=== PATIENT | male | born 1990 | race Caucasian/White ===

== ENCOUNTER 2025-01-12 19:36 | Inpatient (IN) | payer MEDICAID, SELFPAY ==
[2025-01-12 19:36] VITALS: BP 125/75; PULSE 88; RESP 18; TEMP 36.6; O2SAT 99; BMI 19.1
--- NOTE | 2025-01-12 19:43 | EDS_ITS ---
HPI History of Present Illness Chief Complaint: Substance Abuse Detail of Chief Complaint: Requesting inpatient detox for IV fentanyl abuse. Informant: patient Onset/Context/Timing Onset: Weeks Context: Gradual Onset Timing: Continuous Current Severity: Mild Maximum Severity: Mild Narrative Narrative: 34-year-old male IV fentanyl abuse. Requesting detox. Denies alcohol abuse. Denies any significant past medical history. No recent illness. No recent hospitalization. No prior inpatient detox. Prior similar symptoms: Yes Recent Illness/Hospitalization: No PFSH PFSH Home Medications ?Medication ?Instructions ?Recorded ?Last Taken ?Type NK 01/12/25 Unknown History Allergy/AdvReac Type Severity Reaction Status Date / Time No Known Allergies Allergy Verified 01/12/25 19:38 Social History (Updated 01/12/25 @ 19:53 by Danika Whipple) housing: house Smoking Status: Never smoker ROS ROS ED ROS Narrative Denies recent illness Constitutional Constitutional ED: Denies chills or fever(s) Eyes Eyes: Denies blurry vision ENT ENT ED: Denies ear pain Cardiovascular Cardiovascular: Denies chest pain Respiratory/Chest Respiratory/Chest: Denies cough or dyspnea Gastrointestinal Gastrointestinal: Denies abdominal pain, diarrhea, melena, nausea or vomiting Genitourinary Genitourinary ED: Denies dysuria Musculoskeletal Musculoskeletal: Denies arthralgias or back pain Integumentary Denies abscess Neurologic Neurologic: Denies headache(s) Psychiatric Psychiatric: Denies anxiety Endocrine Endocrinology: Denies cold intolerance Hematologic/Lymphatic Hematologic/Lymphatic: Denies easy bleeding, easy bruising or lymphadenopathy Allergic/Immunologic Allergic/Immunologic ED: Denies mouth swelling, tongue swelling or urticaria EXAM Physical Exam Narrative Exam Narrative: Well-appearing 34-year-old male. Vital signs stable afebrile does not look septic toxic no acute distress. Pulse ox 9 9% on room air no hypoxia. H EENT exam pupils round reactive light. No icterus. Moist mucous membranes. Neck nontender no lymphadenopathy. Back nontender. Lungs clear to auscultation bilaterally. Heart regular rate and rhythm rate about 85 no murmur. Chest wall ribs nontender. Abdomen soft nontender. Moving all 4 extremities. Track camacho right forearm. No acute infection. No cellulitis or abscess. 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 Normal dorsi plantarflexion. Neurologically he is awake alert. Answering questions following commands. Const Vital Signs: 01/12/25 19:36 Temperature 98 F Temperature Source Oral Pulse Rate 88 Respiratory Rate 18 Blood Pressure 125/75 H Blood Pressure Mean 91 Pulse Ox 99 Oxygen Delivery Method Room Air MDM MDM MDM Narrative Medical decision making narrative: 34-year-old male requesting detox for IV fentanyl abuse. Screening labs to be obtained I will speak to the hospitalist about admission. History & Record Review Discussion w/independent historian: Patient Additional record(s) reviewed:: No prior records Lab Data Attestation: I reviewed the patient's lab results. Lab results narrative: CBC unremarkable. White count 8. H&H is 16 and 47. Platelets 191. Chemistries show sodium 138 gap 12. Urine creatinine are normal at 17 and 0.7. Glucose 101. Liver enzymes unremarkable other than ALT of 59. Alcohol is negative. Labs: Laboratory Results - last 24 hr 01/12/25 19:49 WBC 8.6 RBC 5.56 Hgb 16.6 H Hct 47.8 MCV 86.0 MCH 29.9 MCHC 34.7 RDW Std Deviation 38.5 RDW Coeff of Sonja 12.3 Plt Count 191 MPV 8.3 Immature Gran % (Auto) 0.800 Neut % (Auto) 63.7 Lymph % (Auto) 24.3 [place] % (Auto) 9.7 Eos % (Auto) 1.2 Baso % (Auto) 0.3 Absolute Neuts (auto) 5.5 Absolute Lymphs (auto) 2.10 Nucleated RBC % 0 Sodium 138 Potassium 3.8 Chloride 101 Carbon Dioxide 25.4 Anion Gap 12 BUN 17 Creatinine 0.75 Estim Creat Clear Calc 127.89 Est GFR (MDRD) Non-Af 121 BUN/Creatinine Ratio 22.9 H Glucose 101 H Calcium 9.4 Total Bilirubin 0.49 AST 30 ALT 59 H Alkaline Phosphatase 119 Total Protein 7.3 Albumin 4.2 Globulin 3.1 Albumin/Globulin Ratio 1.3 Ethyl Alcohol < 10.1 Discharge Plan Dx/Rx/DC Orders Clinical Impression: Fentanyl use disorder, mild, abuse, Admitted to substance misuse detoxification center Disposition Disposition: Acute Care Hospital [facility]
[2025-01-12 19:56] LABS: Hematocrit 47.8 % (40-54); Hemoglobin 16.6 g/dL (13.0-16.5); Immature Granulocytes Count 0.070 X10^3/uL (0.0-0.0); Mean Corp Hgb Conc 34.7 g/dL (32-36); Mean Corpuscular Volume 86.0 fL (80-94); Mean Platelet Vol. 8.3 fl (6.2-12.0); NRBC Flagged by Analyzer 0 % (0-5); Platelet Count 191 K/mm3 (150-450); RBC Distribution Width CV 12.3 % (11.6-14.6); RBC Distribution Width SD 38.5 fl (35.1-43.9); Red Blood Count 5.56 M/mm3 (4.6-6.2); White Blood Count 8.6 K/mm3 (4.4-11.0)
--- OUTSIDE RECORDS SUMMARY | 2025-01-12 20:05 | XMS RPT_ITS | CCD ---
Author Organization [facility] Inform ion Partnership [facility] Care Team Providers Care Manager Med Surg Name Role Phone Micah Morocho Unavailable Unavailable Micah Morocho Unavailable Unavailable MIGUEL A WHITEHEAD Unavailable Unavailable ETMIGUEL A BARRETT Unavailable Unavailable AUSTYN WHITE Attending Unavailab le EtMiguel A barrett Primary Care Provider TORY FARRIS Attending Unavailab le MIGUEL A WHITEHEAD Primary Care Unavailable Miguel A Whitehead Primary Care Provider EtMiguel A barrett Primary Care Provider Etzel PEDIATRIC PHYSICIANMiguel A Primary Care Provider Etzel BEAMING MACHINE OPERATOR-PEDIATRIC PHYSICIANMiguel A Primary Care Provider [phone] MIGUEL A WHITEHEAD [facility] Care Unavailable ETMIGUEL A BARRETT [facility] Care Unavailable ETMIGUEL A BARRETT Primary Care Unavailable JOSE DE JESUS PAUL I Referring Unavailable LINDA BONDS Attending Unavailable ETMIGUEL A BARRETT Primary Care Unavailable HASSMANN IIBRIAN Attending Un available ETMIGUEL A BARRETT Primary Care Unavailable HASSMANN IIBRIAN Referring Un available HASSMANN IIBRIAN Admitting Un available ETMIGUEL A BARRETT Primary Care Unavailable NATO BECERRA Attending Unavailable ETMIGUEL A BARRETT Primary Care Unavailable LUIS ESPINO Attending Unavailable MELODY CHOU Attending Unavailable CHANEL ROGERS Admitting Unavailable PRANAV SCHWARTZ Unavailable MIGUEL A WHITEHEAD Primary Care Unavailable ETMIGUEL A BARRETT Primary Care Unavailable SANA BHAGAT Attending Unavailable SHELBY DUQUE Attending Unavailable ETZELMIGUEL A Primary Care Unavailable MARC CONNELLY Attending Unavail able ETMIGUEL A BARRETT Primary Care Unavailable ETZEL, MIGUEL A YOU Primary Care Unavailable JEANETTE BLUNT Attending Unavailable Medications Current Medications Medication Drug Class(es) Dates Sig (Normalized) Sig (Original) acyclovir 400 mg oral tablet (1 source) Herpesvirus Nucleoside Analog DNA Polymerase Inhibitor, Herpes Simplex Virus Nucleoside Analog DNA Polymerase Inhibitor, Herpes Zoster Virus Nucleoside Analog DNA Polymerase Inhibitor Start: 05-05-2020 take 1 tablet by mouth five times daily acyclovir (ZOVIRAX) 400 MG tablet Take 1 (one) tablet (400 mg total) by mouth 5 (five) times a day . 25 tablet 0 05/05/2020 Active [id number] 200 actuat albuterol 0.09 mg/actuat metered dose inhaler (5 sources) beta2-Adrenergic Agonist Start: 02-24-2023 take 2 puff(s) by inhalation every six hours as needed for cough albuterol 90 mcg/actuation inhaler Inhale 2 (two) puffs every 6 (six) hours as needed for cough or wheezing . 18 g 02/24/2023 Active amoxicillin 875 mg / clavulanate 125 mg oral tablet (1 source) Penicillin-class Antibacterial Start: 05-24-2019 End: 06-03-2019 take 1 tablet by mouth twice daily amoxicillin-clavu lanate (AUGMENTIN) 875-125 MG per tablet Take 1 tablet by mouth 2 times daily for 10 days 20 tablet 0 05/24/2019 06/03/2019 Active doxycycline hyclate 100 mg oral tablet (2 sources) Tetracycline-class Drug Start: 04-28-2020 take 1 tablet by mouth twice daily doxycycline hyclate (VIBRA-TABS) 100 MG tablet Take 1 (one) tablet (100 mg total) by mouth 2 (two) times a day . 14 tablet 0 04/28/2020 Active Start: 10-25-2017 take 1 tablet by musa th twice daily doxycycline hyclate (VIBRA-TABS) 100 MG tablet Take 1 (one) tablet (100 mg total) by mouth 2 (two) times a day. 14 tablet 0 10/25/2017 Active etodolac 400 mg oral tablet (1 source) Nonsteroidal Anti-inflammatory Drug Start: 05-24-2019 take 1 tablet by mouth twice daily for headache etodolac (LODINE) 400 MG tablet Take 1 tablet by mouth 2 times daily For headache 30 tablet 0 05/24/2019 Active FLUoxetine 20 mg oral capsule (2 sources) Serotonin Reuptake Inhibitor Start: 05-15-2019 End: 05-24-2019 take 1 capsule by mouth once daily FLUoxetine (PROZAC) 20 MG capsule Take 1 (one) capsule (20 mg total) by mouth daily . 30 capsule 2 05/15/2019 Active meloxicam 15 mg oral tablet (2 sources) Nonsteroidal Anti-inflammatory Drug Start: 02-19-2022 End: 02-26-2022 take 1 tablet by mouth once daily as needed for pain meloxicam (MOBIC) 15 MG tablet Take 1 (one) tablet (15 mg total) by mouth daily as needed for pain . 7 tablet 0 02/19/2022 02/26/2022 Active mupirocin 0.02 mg/mg topical ointment (1 source) RNA Synthetase Inhibitor Antibacterial Start: 04-28-2020 mupirocin (BACTROBAN) 2 % ointment Apply topically 3 (three) times a day . 22 g 0 04/28/2020 Active sulfamethoxazole 800 mg / trimethoprim 160 mg oral tablet (5 sources) Dihydrofolate Reductase Inhibitor Antibacterial, Sulfonamide Antimicrobial Start: 01-30-2024 End: 02-06-2024 take 1 tablet by mouth twice daily sulfamethoxazo le-trimethopri m (BACTRIM DS,SEPTRA DS) 800-160 mg per tablet Take 1 (one) tablet by mouth 2 (two) times a day for 7 days . 14 tablet 01/30/2024 02/06/2024 Active End: 03-13-2024 sulfamethoxazole-trimethopri m (BACTRIM,SEPTRA) 200-40 mg/5 mL suspension Take by mouth 2 (two) times a day . 03/13/2024 Discontinued (Stop Taking at Discharge) End: 05-24-2019 take 1 tablet by mouth once sulfamethoxazole-trimethoprim (BACTRIM DS;SEPTRA DS) 800-160 MG per tablet Take 1 tablet by mouth once 0 05/24/2019 Discontinued Completed/Discontinued Medications Medication Drug Class(es) Dates Sig (Normalized) Sig (Original) acetaminophen 325 mg oral tablet (4 sources) Start: 03-11-2024 End: 03-13-2024 take 1 tablet by mouth every six hours as needed for headache 650 mg, Oral, Every 6 hours PRN, headaches, Starting on 03/11/24 at 2231 Start: 03-11-2024 End: 03-11-2024 take 975 mg by mouth once 975 mg, Oral, Once, On Sun at 1845, For 1 dose Start: 07-09-2023 End: 07-09-2023 take 1 dose by mouth once 1,000 mg, Oral, ONCE, 1 dose , On 07/09/23 at 2115 Start: 02-19-2022 End: 02-19-2022 acetaminophen (TYLENOL) tabl et 650 mg acetaminophen 325 mg / oxyCODONE hydrochloride 5 mg oral tablet (1 source) Opioid Agonist Start: 02-19-2022 End: 02-19-2022 take 1 tablet by mouth every six hours as needed oxyCODONE-acetaminophen (PERCOCET) 5-325 mg per tablet 1 tablet bacitracin 0.5 unt/mg topical ointment (1 source) Start: 07-09-2023 End: 07-09-2023 1 Application, Topical, ONCE, 1 dose, On 07/09/23 at 2115, Apply to finger bisacodyl 10 mg rectal suppository (1 source) Stimulant Laxative Start: 02-19-2022 End: 02-19-2022 bisacodyL (DULCOLAX) suppository 10 mg cephalexin 500 mg oral capsule (6 sources) Cephalosporin Antibacterial Start: 07-09-2023 End: 07-10-2023 take 500 mg by mouth every six hours 500 mg, Oral, EVERY 6 HOURS, First dose on 07/09/23 at 2045, Until Discontinued Start: 07-05-2023 End: 07-05-2023 take 1 dose by mouth once 500 mg, Oral, ONCE, 1 dose, On 07/05/23 at 2245 Start: 07-05-2023 End: 07-15-2023 take 1 capsule by mouth twice daily cephALEXin 500 MG capsule Take 1 capsule by mouth 2 times daily for 10 days. 20 capsule 07/05/2023 07/15/2023 Active Start: 05-11-2020 End: 05-18-2020 take 1 capsule by mouth three times daily cephALEXin (KEFLEX) 500 MG capsule Take 1 (one) capsule (500 mg total) by mouth 3 (three) times a day for 7 days . 21 capsule 0 05/11/2020 05/18/2020 Active dextromethorphan hydrobromide 2 mg/ml / guaiFENesin 40 mg/ml oral suspension (4 sources) Uncompetitive F-hgpfvc-R-aspartate Receptor Antagonist, Sigma-1 Agonist Start: 11-22-2023 End: 03-13-2024 dextromethorphan-guaiFENesin 10-200 mg/5 mL Liqd . . 200 mL 11/22/2023 03/13/2024 Discontinued (Stop Taking at Discharge) 1 ml diphenhydrAMINE hydrochloride 50 mg/ml cartridge (1 source) Histamine-1 Receptor Antagonist Start: 05-24-2019 End: 05-24-2019 diphenhydrAMINE (BENADRYL) injection 25 mg 0.4 ml enoxaparin sodium 100 mg/ml prefilled syringe (1 source) Low Molecular Weight Heparin Start: 03-12-2024 End: 03-13-2024 inject 40 mg by subcuta neous injecti on once daily 40 mg, Subcutaneous, Daily, First dose on 03/12/24 at 0800, Administer in abdomen unless otherwise directed by prescriber. Notify physician if patient refuses., Indication: VTE Prophylaxis 12 hr guaiFENesin 600 mg extended release oral tablet (1 source) Start: 03-12-2024 End: 03-12-2024 take 600 mg by mouth once 600 mg, Oral, Once, On 03/12/24 at 0940, For 1 dose, DO NOT CRUSH OR CHEW. ibuprofen 400 mg oral tablet (9 sources) Nonsteroidal Anti-inflammatory Drug Start: 03-11-2024 End: 03-13-2024 take 1 tablet by mouth every six hours as needed for headach e 400 mg, Oral, Every 6 hours PRN, headaches, Starting on 03/11/24 at 2231, Give with Food Do Not Crush or Chew if administering orally due to bitter taste. May be crushed if given via tube. Start: 07-09-2023 End: 07-09-2023 take 1 dose by mouth once at mealtime 600 mg, Oral, ONCE, 1 dose, On 07/09/23 at 2115, Give with food Start: 02-24-2022 End: 03-13-2024 take 1 tablet by mouth every six hours as needed for pain ibuprofen (ADVIL,MOTRIN) 800 MG tablet Take 1 (one) tablet (800 mg total) by mouth every 6 (six) hours as needed for pain (penile fracture) . 15 tablet 02/24/2022 03/13/2024 Discontinued (Stop Taking at Discharge) Start: 11-04-2016 take 1 tablet by musa th every six hours as needed ibuprofen 600 MG Tab take 1 tablet by mouth every 6 hours as needed. 20 tablet 11/04/2016 Active iopamidoL (ISOVUE-370) 370 mg iodine /mL (76 %) injection 75 mL (1 source) Start: 03-11-2024 End: 03-11-2024 75 mL, Intravenous, Once in imaging, contrast, Starting on 03/11/24 at 1638, For 1 dose 1 ml ketorolac tromethamine 15 mg/ml cartridge (1 source) Nonsteroidal Anti-inflammatory Drug, Cyclooxygenase Inhibitor Start: 05-24-2019 End: 05-24-2019 ketorolac (TORADOL) injection 15 mg Lidocaine (5 sources) Antiarrhythmic, Amide Local Anesthetic Start: 02-01-2024 End: 02-01-2024 lidocaine 20 mg/mL (2 %) injection 6 mL Start: 02-01-2024 End: 02-01-2024 6 mL, Infiltration, Once, On Tue02/01/24 at 1500, For 1 dose Start: 02-01-2024 End: 02-02-2024 lidocaine 20 mg/mL (2 %) inj ection 6 mL magnesium hydroxide 80 mg/ml oral suspension (1 source) Start: 02-19-2022 End: 02-19-2022 magnesium hydroxide (MOM) 400 mg/5 mL suspension 2,400 mg melatonin 5 mg oral tablet (1 source) Start: 03-11-2024 End: 03-13-2024 take 5 mg by mouth once daily as needed for sleep 5 mg, Oral, Nightly PRN, Sleep, Starting on 03/11/24 at 2223 methylPREDNISolone 125 mg injection (1 source) Corticosteroid Start: 05-24-2019 End: 05-24-2019 methylPREDNISolone sodium (SOLU-MEDROL) injection 125 mg naloxone (NARCAN) injection 0.1 mg (1 source) Start: 02-19-2022 End: 02-19-2022 naloxone (NARCAN) injection 0.1 mg 24 hr nicotine 0.875 mg/hr transdermal system (1 source) Cholinergic Nicotinic Agonist Start: 02-19-2022 End: 02-19-2022 nicotine (NICODERM CQ) 21 mg/24 hr 1 patch 2 ml ondansetron 2 mg/ml injection (8 sources) Serotonin-3 Receptor Antagonist Start: 03-11-2024 End: 03-13-2024 take 4 mg intravenously every six hours as needed for nausea and vomiting 4 mg, Intravenous, Every 6 hours PRN, nausea, vomiting, Starting on 03/11/24 at 2223 Start: 02-19-2022 End: 02-19-2022 take 4 mg intravenously every six hours as needed for nausea and vomiting ondansetron (ZOFRAN) injection 4 mg Start: 06-09-2021 End: 03-13-2024 take 1 tablet by mouth every eight hours as needed ondansetron (Zofran) 4 MG tablet Take 1 (one) tablet (4 mg total) by mouth every 8 (eight) hours as needed . 20 tablet 06/09/2021 03/13/2024 Discontinued (Stop Taking at Discharge) penicillin v potassium 500 mg oral tablet (1 source) Start: 11-04-2016 End: 07-05-2023 take 2 tablets by mouth twice daily penicillin v potassium 500 MG Tab take 2 tablets by mouth 2 times daily. 40 tablet 11/04/2016 07/05/2023 Discontinued 2 ml prochlorperazine 5 mg/ml injection (1 source) Phenothiazine Start: 05-24-2019 End: 05-24-2019 prochlorperazine (COMPAZINE) injection 10 mg sennosides, halfway 8.6 mg oral tablet (1 source) Start: 02-19-2022 End: 02-19-2022 senna (SENOKOT) tablet 8.6 mg Sodium Chloride (3 sources) Start: 03-11-2024 End: 03-13-2024 sodium chloride (PF) (NS) flush 5 mL Start: 02-19-2022 End: 02-19-2022 sodium chloride (PF) (NS) fl ush 5 mL Start: 05-24-2019 End: 05-24-2019 0.9 % NaCl bolus Problems Active Problems Problem Classification Problem Date Documented Date Episodic/Chronic Anxiety disorders (2 sources) Posttraumatic stress disorder; Translations: [Post-traumatic stress disorder, unspecified] Onset: 03-11-2024 03-11-2024 Chronic E Codes: Natural/environment (5 sources) Dog bite - wound; Translations: [Bitten by dog, initial encounter] Onset: 02-01-2024 02-01-2024 Episodic External cause codes: Cut/neal (1 source) Contact with knife, initial encounter; Translations: [Contact with knife, initial encounter] Onset: 04-20-2018 Headache; including migraine (7 sources) Paroxysmal hemicrania; Translations: [Episodic paroxysmal hemicrania, not intractable] Onset: 05-24-2019 05-24-2019 Chronic Mood disorders (6 sources) Depressive disorder; Translations: [Depression, unspecified depression type] Onset: 03-11-2024 03-11-2024 Chronic Mood disorders (2 sources) Mood disorders; Translations: [Depression, unspecified] Onset: 03-11-2024 Nonspecific chest pain (4 sources) Chest pain, unspecified; Translations: [Other chest pain] Onset: 02-11-2024 Episodic Open wounds of extremities (15 sources) Laceration without foreign body of right hand, initial encounter; Translations: [Laceration of index finger] Onset: 04-20-2018 07-05-2023 Episodic Open wounds of extremities (3 sources) Laceration of left index finger; Translations: [Laceration without foreign body of left index finger without damage to nail, subsequent encounter] Onset: 07-09-2023 07-09-2023 Episodic Other connective tissue disease (2 sources) Pain in right foot; Translations: [Pain in right foot] Onset: 02-01-2024 Episodic Other injuries and conditions due to external causes (1 source) Follow-up status; Translations: [Other injury of unspecified body region, subsequent encounter] 07-09-2023 Episodic Other injuries and conditions due to external causes (2 sources) Other injury of unspecified body region, subsequent encounter; Translations: [Other injury of unspecified body region, subsequent encounter] Onset: 07-09-2023 Episodic Other injuries and conditions due to external causes (1 source) Laceration of digital nerve in finger; Translations: [Injury of digital nerve of unspecified finger, initial encounter] 07-13-2023 Episodic Other nervous system disorders (2 sources) Other chronic pain; Translations: [Other chronic pain] Onset: 06-10-2024 Chronic Personality disorders (2 sources) Cluster B personality disorder ; Translations: [Other specific personality disorders] Onset: 03-11-2024 03-11-2024 Chronic Sprains and strains (2 sources) Unspecified sprain of right wrist, initial encounter; Translations: [Unspecified sprain of right wrist, initial encounter] Onset: 12-04-2024 Episodic Substance-related disorders (4 sources) Polysubstance abuse ; Translations: [Other psychoactive substance abuse, uncomplicated] Onset: 03-11-2024 03-13-2024 Chronic Substance-related disorders (2 sources) Stimulant abuse; Translations: [Other stimulant use, unspecified, uncomplicated] Onset: 03-11-2024 03-11-2024 Episodic Viral infection (2 sources) Disease caused by 2019-nCoV; Translations: [COVID-19] Onset: 03-11-2024 03-11-2024 Episodic Past or Other Problems Problem Classification Problem Date Documented Da te Episodic/Chronic Chronic obstructive pulmonary disease and bronchiectasis (7 sources) Bronchitis; Translations: [Bronchitis, not specified as acute or chronic] Onset: 05-24-2019 05-24-2019 Episodic Crushing injury or internal injury (6 sources) Injury of urethra; Translations: [Other injury of urethra, initial encounter] Onset: 02-19-2022 Episodic Other injuries and conditions due to external causes (7 sources) Rupture of corpus cavernosum of penis; Translations: [Fracture of corpus cavernosum penis, initial encounter] Onset: 02-19-2022 Episodic Other non-traumatic joint disorders (2 sources) Pain in right shoulder; Translations: [Pain in right shoulder] Onset: 06-10-2024 Episodic Pneumonia (except that caused by tuberculosis or sexually transmitted disease) (2 sources) Pneumonia, unspecified organism; Translations: [Pneumonia, unspecified organism] Onset: 11-21-2023 Episodic Skin and subcutaneous tissue infections (9 sources) Paronychia of toe of right foot; Translations: [Cellulitis of right toe] Onset: 11-21-2023 02-01-2024 Episodic Suicide and intentional self-inflicted injury (3 sources) Suicidal thoughts; Translations: [Suicidal ideations] Onset: 03-11-2024 03-11-2024 Episodic Superficial injury; contusion (8 sources) Subungual hematoma of foot; Translations: [Contusion of right lesser toe(s) with damage to nail, initial encounter] Onset: 02-01-2024 02-01-2024 Episodic Results Test Name Value Interpretation Reference Range Facility ED Prov Noteon 12-04-2024 ED Prov Note ED PROVIDER NOTE [facility] NAME: Mikayla Sotelo AGE: 34 y.o. : 1990 VISIT DATE: 12/04/2024 CSN: [id number] PCP: Miguel A Whitehead, SANDRA Chief Complaint Patient presents with Wrist Pain 34-year-old male presents complaining of pain in his right wrist and hand after punching a wall 2 days ago. He describes injuring that hand when he was 25 but he never actually got x-rays for it. Denies any elbow or shoulder injury. Pain is worse with movement about the wrist Wrist Pain Past Medical History: Diagnosis Date Hepatitis C Herpes genitalis in men History reviewed. No pertinent surgical history. Family History Problem Relation Age of Onset Diabetes Father Diabetes Maternal Aunt Diabetes Maternal Grandmother Diabetes Paternal Grandmother Social History [1] Previous Medications Medication Sig albuterol 90 mcg/actuation inhaler Inhale 2 (two) puffs every 6 (six) hours as needed for cough or wheezing . (Patient not taking: Reported on 06/10/2024 .) Allergies[2] Review of Systems All other review of systems not mentioned in the HPI are negative. Patient Vitals for the past 24 hrs: BP Temp Temp src Pulse Resp SpO2 Weight 12/04/24 2209 -- -- -- -- -- 100 % -- 12/04/24 2207 (!) 137/53 97.9 degrees F (36.6 degrees C) Oral 96 18 100 % 63.5 kg (140 lb) Physical Exam CONSTITUTIONAL: Well-developed, well-nourished. Speaking full sentences in no apparent distress. EYES: No conjunctival injection. No icterus. EARS: External ears appear normal. NOSE: The nose is normal in appearance. There is no rhinorrhea. NECK: The trachea is mid-line. CARDIOVASCULAR: The heart has a regular rate and rhythm. No cyanosis RESPIRATORY: There is normal chest excursion with respiration. No stridor. GASTROINTESTINAL: Abdomen nondistended. MUSCULOSKELETAL: There are no deformities noted in all four extremities. INTEGUMENTARY: The exposed skin appears normal for age and race. It is warm and dry. No petechiae or purpuric lesions are noted. PSYCHOLOGICAL: The patient's mood and manner are appropriate. Grooming and personal hygiene are appropriate. NEURO: No focal weakness with equal strength bilaterally. Right wrist: Most tenderness on the dorsal aspect near the ulnar styloid and fifth metacarpal. No obvious swelling or bruising or deformity noted. Radial, ulnar, and median nerve function is intact distally in the hand. Some limited wrist and finger extension due to discomfort . Laboratory & Radiographic Imaging (if done): No results found for this visit on 12/04/24. XR Hand Right 3+ Views (Standard) Final Result Dorsal soft tissue swelling. No acute fracture. Workstation ID: [id number] XR Wrist Right 3+ Views (Standard) Final Result Dorsal soft tissue swelling. No acute fracture. Workstation ID: [id number] Procedures Medical Decision Making Isolated injury to the right wrist and hand. X-ray to further evaluate. I reviewed the x-ray images and see no evidence of fracture or dislocation. Will treat as wrist sprain. Velcro wrist splint provided. Range of motion and rehab exercises discussed. Follow-up with orthopedics for persistent symptoms Patient informed of incidental findings seen on imaging today. Ability to review test results in their chart electronically discussed. Follow-up with primary care for further evaluation of any incidental findings discussed. Clinical Impression: 1. Wrist sprain, right, initial encounter ED Disposition ED Disposition Discharge Condition Stable Comment Mikayla Sotelo discharged to home/self care in stable condition. Follow-up Information 1. Tory Monge MD. Specialty: Orthopedic Surgery Why: Follow-up in 1 to 2 weeks for reevaluation for persistent discomfort Zabrina Wan [facility] [phone] Contact information for after-discharge care Follow-up information has not been specified. [1] Social History Socioeconomic History Marital status: Single Tobacco Use Smoking status: Every Day Current packs/day: 0.50 Types: Cigarettes Smokeless tobacco: Never Vaping Use Vaping status: Never Used Substance and Sexual Activity Alcohol use: Not Currently Drug use: Yes Types: Marijuana, Methamphetamines Comment: occasionally [2] No Known Allergies Jeanette Blunt MD 12/04/242235 AUTHENTICATED BY JEANETTE BLUNT, ON 12/04/2024 22:36:25 [facility] XR HAND RIGHT 3+ VIEWS (ISAIAS DARD)on 12-04-2024 XR HAND RIGHT 3+ VIEWS (STANDARD) EXAMINATION: XR WRIST RIGHT 3+ VIEWS (STANDARD); XR HAND RIGHT 3+ VIEWS (STANDARD) HISTORY: M, 34 y/o , Punched a concrete wall 2 days ago. Pain in ulnar side of dorsal wrist COMPARISON: None TECHNIQUE: Three views of the right wrist, three views of the right hand are performed. FINDINGS: There is no acute fracture.The bony structures are intact.There is soft tissue swelling over the dorsal aspect of the metacarpal phalangeal joints. IMPRESSION: Dorsal soft tissue swelling. No acute fracture. Workstation ID: [id number] Dictated by: JAVIER RAI on TueDec 04, 2024 10:28:56 PM EDT Transcribed by: JAVIER RAI on TueDec 04, 2024 10:28:56 PM EDT Finalized by: JAVIER RAI on TueDec 04, 2024 10:28:56 PM EDT [facility] Comment on above: Order Comment: Injur y/Trauma or Illness?:Injury/Trauma How long have you had these symptoms (acute/chronic)?:Acute Reason for exam?:punched wall History of cancer?:Unknown Surgeries, chemotherapy, or radiation?:Unknown Type of Exam?:Initial Mechanism of injury?:pain XR WRIST RIGHT 3+ VIEWS (STA NDARD)on 12-04-2024 XR WRIST RIGHT 3+ VIEWS (STANDARD) EXAMINATION: XR WRIST RIGHT 3+ VIEWS (STANDARD); XR HAND RIGHT 3+ VIEWS (STANDARD) HISTORY: M, 34 y/o , Punched a concrete wall 2 days ago. Pain in ulnar side of dorsal wrist COMPARISON: None TECHNIQUE: Three views of the right wrist, three views of the right hand are performed. FINDINGS: There is no acute fracture.The bony structures are intact.There is soft tissue swelling over the dorsal aspect of the metacarpal phalangeal joints. IMPRESSION: Dorsal soft tissue swelling. No acute fracture. Workstation ID: [id number] Dictated by: JAVIER RAI on TueDec 04, 2024 10:28:56 PM EDT Transcribed by: JAVIER RAI on TueDec 04, 2024 10:28:56 PM EDT Finalized by: JAVIER RAI on TueDec 04, 2024 10:28:56 PM EDT [facility] Comment on above: Order Comment: Injur y/Trauma or Illness?:Injury/Trauma How long have you had these symptoms (acute/chronic)?:Acute Reason for exam?:punched wall History of cancer?:Unknown Surgeries, chemotherapy, or radiation?:Unknown Type of Exam?:Initial Mechanism of injury?:pain ED Procedureon 08-25-2024 ED Procedure EKG 12-lead Date/Time: 08/25/2024 11:07 AM Performed by: Sana Bhagat MD Authorized by: Sana Bhagat MD Interpreted by ED attending physician Comparison: compared with previous ECG from 02/11/2024 Similar to previous ECG Comparison to previous ECG: Q wave in V2 present in previous EKG, incomplete right bundle branch block appears to be in early stages Rhythm: sinus rhythm BPM: 94 Conduction: incomplete RBBB QRS axis: right Q waves: V2 Clinical impression: non-specific ECG AUTHENTICATED BY SANA BHAGAT, ON 08/25/2024 11:11:47 [facility] ED Prov Noteon 08-25-2024 ED Prov Note [facility] ED Attending Note: NAME: Mikayla Sotelo 34 y.o. CSN: [id number] PCP: Miguel A Whitehead CNP History: Chief Complaint: Chest Pain (Chest pain and nausea) and Nausea HPI: The history was obtained from the patient and EMS. Mikayla is a 34 y.o. male who presents with a chief complaint of Chest Pain (Chest pain and nausea) and Nausea. The patient is a 34-year-old male with a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 immature granulocyte count (IG) of 1% or more suggests the possibility of infection, an IG count of 3% is very likely related to an infection. Performed By: #### L [id number] #### LAB [address] [address] Harrison Evangelista M.D. [id number] Lymphocytes (Bld) [#/Vol] 1.45 10*3/uL Normal 0.90-4.00 [facility] Comment on above: Performed By: #### L [id number] #### LAB [address] [address] Harrison Evangelista M.D. [id number] Lymphocytes/100 WBC (Bld) 13.8 % Normal [facility] Comment on above: Performed By: #### L [id number] #### LAB [address] [address] Harrison Evangelista M.D. [id number] MCH (RBC) [Entitic mass] 29.8 pg Normal 26.0-34.0 [facility] Comment on above: Performed By: #### L [id number] #### MH LAB [address] [address] Harrison Evangelista M.D. [id number] MCV (RBC) [Entitic vol] 87.7 fL Normal 80.0-100.0 [facility] Comment on above: Performed By: #### L [id number] #### LAB [address] [address] Harrison Evangelista M.D. [id number] MEAN CORPUSCULAR HEMOGLOBIN CONC 34.0 g/dL Normal 31.0-37.0 [facility] Comment on above: Performed By: #### L [id number] #### LAB [address] [place] [address] Harrison Evangelista M.D. [id number] Monocytes (Bld) [#/Vol] 1.06 10*3/uL High 0.30-0.90 [facility] Comment on above: Performed By: #### L [id number] #### LAB [address] [address] Harrison Evangelista M.D. [id number] Monocytes/100 WBC (Bld) 10.1 % Normal [facility] Comment on above: Performed By: #### L [id number] #### LAB [address] [address] Harrison Evangelista M.D. [id number] NEUTROPHILS ABSOLUTE COUNT 7.92 K/mcL High 1.70-7.00 [facility] Comment on above: Performed By: #### L [id number] #### LAB [address] [address] Harrison Evangelista M.D. [id number] Neutrophils/100 WBC (Bld) 75.0 % [facility] Comment on above: Performed By: #### L [id number] #### LAB [address] [address] Harrison Evangelista M.D. [id number] Platelet mean volume (Bld) [Entitic vol] 8.8 fL Low 9.4-12.4 [facility] Comment on above: Performed By: #### L [id number] #### LAB [address] [address] Harrison Evangelista M.D. [id number] Platelets (Bld) [#/Vol] 217 10*3/uL Normal 150-400 [facility] Comment on above: Performed By: #### L [id number] #### LAB [address] [address] Harrison Evangelista M.D. [id number] RBC (Bld) [#/Vol] 6.10 10*6/uL High 4.50-5.90 [facility] Comment on above: Performed By: #### L [id number] #### LAB [address] [address] Harrison Evangelista M.D. [id number] WBC (Bld) [#/Vol] 10.54 10*3/uL Normal 4.50-11.00 [facility] Comment on above: Performed By: #### L [id number] #### LAB [address] [place], [place] [address] Harrison Evangelista M.D. [id number] CHEM 703-11-2024 Anion gap [Moles/Vol] 14 mmol/L Normal 10-20 [facility] Comment on above: Order Comment: [facility] has implemented the eGFR calculation approach that does not have a coefficient for race that conforms to the NKF-ASN Task Force Recommendations. Performed By: #### 4 6953 ####MH LAB [address] [place], [place] [address] Harrison Evangelista M.D. [id number] Chloride [Moles/Vol] 100 mmol/L Normal 98-108 [facility] Comment on above: Order Comment: [facility] has implemented the eGFR calculation approach that does not have a coefficient for race that conforms to the NKF-ASN Task Force Recommendations. Performed By: #### 4 6953 #### LAB [address] [place], [place] [address] Harrison Evangelista M.D. [id number] Creatinine [Mass/Vol] 1.03 mg/dL Normal 0.50-1.30 [facility] Comment on above: Order Comment: [facility] has implemented the eGFR calculation approach that does not have a coefficient for race that conforms to the NKF-ASN Task Force Recommendations. Performed By: #### 4 6953 ####MH LAB [address] [place], [place] [address] Harrison Evangelista M.D. [id number] EGFR 98 mL/min/1.73 m2 Normal >=60 [facility] Comment on above: Order Comment: [facility] has implemented the eGFR calculation approach that does not have a coefficient for race that conforms to the NKF-ASN Task Force Recommendations. Result Comment: Marisol mated GFR was calculated using the 2020 CKD-EPI creatinine equation. Performed By: #### 4 6953 ####MH LAB [address] [address] Harrison Evangelista M.D. [id number] Glucose [Mass/Vol] 94 mg/dL Normal 65-99 [facility] Comment on above: Order Comment: [facility] has implemented the eGFR calculation approach that does not have a coefficient for race that conforms to the NKF-ASN Task Force Recommendations. Performed By: #### 4 6953 ####MH LAB [address] [address] Harrison Evangelista M.D. [id number] HCO3 (Bld) [Moles/Vol] 29 mmol/L Normal 21-32 [facility] Comment on above: Order Comment: [facility] has implemented the eGFR calculation approach that does not have a coefficient for race that conforms to the NKF-ASN Task Force Recommendations. Performed By: #### 4 6953 #### LAB [address] [address] Harrison Evangelista M.D. [id number] Potassium [Moles/Vol] 3.9 mmol/L Normal 3.5-5.1 [facility] Comment on above: Order Comment: [facility] has implemented the eGFR calculation approach that does not have a coefficient for race that conforms to the NKF-ASN Task Force Recommendations. Performed By: #### 4 6953 ####MH LAB [address] [address] Harrison Evangelista M.D. [id number] Sodium [Moles/Vol] 139 mmol/L Normal 135-145 [facility] Comment on above: Order Comment: [facility] has implemented the eGFR calculation approach that does not have a coefficient for race that conforms to the NKF-ASN Task Force Recommendations. Performed By: #### 4 6953 ####MH LAB [address] [address] Harrison Evangelista M.D. [id number] Urea nitrogen [Mass/Vol] 13 mg/dL Normal 8-25 [facility] Comment on above: Order Comment: [facility] has implemented the eGFR calculation approach that does not have a coefficient for race that conforms to the NKF-ASN Task Force Recommendations. Performed By: #### 4 6953 #### LAB [address] [place], [place] [address] Harrison Evangelista M.D. [id number] Urea nitrogen/Creatinine [Mass ratio] 12.6 mg/mg Normal 10.0-20.0 [facility] Comment on above: Order Comment: [facility] has implemented the eGFR calculation approach that does not have a coefficient for race that conforms to the NKF-ASN Task Force Recommendations. Performed By: #### 4 6953 #### LAB [address] [place], [place] [address] Harrison Evangelista M.D. [id number] COVID-19/INFLUENZA A,B MOLEC ULARon 03-11-2024 SARS-CoV-2 (COVID-19) Ab IA Ql SARS-COV-2 (CE[place]IL[place]) Detected INFLUENZA A ([place]) Not Detected INFLUENZA B ([place]) Not Detected Abnormal Not Detected [facility] Comment on above: Performed By: #### L [id number] #### LAB [address] [place], [place] [address] Harrison Evangelista M.D. [id number] CT ANGIOGRAM HEAD NECKon CT ANGIOGRAM HEAD NECK EXAMINATION: CT ANGIOGRAM HEAD NECK HISTORY: Concern for hanging injury. COMPARISON: CT head, 02/05/2021. TECHNIQUE: CT HEAD: Routine unenhanced axial CT images were obtained through the brain. CTA BRAIN: Postcontrast axial CTA images were obtained through the brain. Reconstructed MIP images were obtained in the axial, sagittal and coronal planes. Additional 3D reconstructions were obtained on an independent workstation. CTA NECK: Postcontrast axial CTA images were obtained through the neck. Reconstructed MIP images were obtained in the sagittal and coronal planes. Additional 3D reconstructions were obtained on an independent [employer] workstation. Carotid stenosis is reported according to NASCET criteria. Dose reduction techniques were achieved by using automated exposure control and/or adjustment of mA and/or kV according to patient size and/or use of iterative reconstruction technique. CONTRAST: 75 mL Isovue-370. FINDINGS: CT HEAD: Paranasal sinuses clear. Mastoid air cells clear. Skull base intact. No skull lesion. Orbital contents, nasopharynx normal. Extracranial soft tissue structures are unremarkable. No hydrocephalus. No mass effect. No shift of midline. No acute hemorrhage. No mass. CTA BRAIN: Distal internal carotid arteries are normal. Anterior cerebral arteries are normal. Middle cerebral arteries are normal. Distal vertebral arteries are normal. Basilar artery normal. Cerebellar arteries are normal. Posterior cerebral arteries are normal. No aneurysm. No vascular malformation. CTA NECK: The common carotid arteries are normal. The carotid bifurcations are normal. The internal carotid arteries are normal. No carotid artery stenosis. Left vertebral artery is dominant. Right vertebral artery is hypoplastic. Both vertebral arteries are patent. No acute dissection. The cervical spine is normal in alignment. No acute cervical spine fracture. No soft tissue swelling in the neck. No laryngeal edema. No masses. No lymphadenopathy. IMPRESSION: 1. Normal noncontrast CT of the head. 2. Normal CT angiogram of the brain. 3. No acute carotid vertebral artery dissection. No significant carotid or vertebral artery stenosis. 4. No acute cervical spine fracture. [employer] Workstation ID: [id number] Dictated by: ESA MONTOYA on [place] Mar 11, 2024 5:09:27 PM EST Transcribed by: NATO ANTOINE on [place] Mar 11, 2024 5:43:10 PM EST Finalized by: ESA MONTOYA on [place] Mar 11, 2024 9:44:25 PM EST Normal [facility] Comment on above: Order Comment: Injur y/Trauma or Illness?:Injury/Trauma How long have you had these symptoms (acute/chronic)?:Acute Reason for exam?:concerned for hanging injury, pt found hanging by noose in garage Type of Exam?:Initial Mechanism of injury?:hanging injury CTA Head vessels and Neck ve ssels W contrast Frank 03-11-[address] of the head. 2. Normal CT angiogram of the brain. 3. No acute carotid vertebral artery dissection. No significant carotid or vertebral artery stenosis. 4. No acute cervical spine fracture. [employer]/ContaAzul Workstation ID: [id number] [facility] EXAMINATION: CT ANGIOGRAM HEAD NECK HISTORY: Concern for hanging injury. COMPARISON: CT head, 02/05/2021. TECHNIQUE: CT HEAD: Routine unenhanced axial CT images were obtained through the brain. CTA BRAIN: Postcontrast axial CTA images were obtained through the brain. Reconstructed MIP images were obtained in the axial, sagittal and coronal planes. Additional 3D reconstructions were obtained on an independent workstation. CTA NECK: Postcontrast axial CTA images were obtained through the neck. Reconstructed MIP images were obtained in the sagittal and coronal planes. Additional 3D reconstructions were obtained on an independent [employer] workstation. Carotid stenosis is reported according to NASCET criteria. Dose reduction techniques were achieved by using automated exposure control and/or adjustment of mA and/or kV according to patient size and/or use of iterative reconstruction technique. CONTRAST: 75 mL Isovue-370. FINDINGS: CT HEAD: Paranasal sinuses clear. Mastoid air cells clear. Skull base intact. No skull lesion. Orbital contents, nasopharynx normal. Extracranial soft tissue structures are unremarkable. No hydrocephalus. No mass effect. No shift of midline. No acute hemorrhage. No mass. CTA BRAIN: Distal internal carotid arteries are normal. Anterior cerebral arteries are normal. Middle cerebral arteries are normal. Distal vertebral arteries are normal. Basilar artery normal. Cerebellar arteries are normal. Posterior cerebral arteries are normal. No aneurysm. No vascular malformation. CTA NECK: The common carotid arteries are normal. The carotid bifurcations are normal. The internal carotid arteries are normal. No carotid artery stenosis. Left vertebral artery is dominant. Right vertebral artery is hypoplastic. Both vertebral arteries are patent. No acute dissection. The cervical spine is normal in alignment. No acute cervical spine fracture. No soft tissue swelling in the neck. No laryngeal edema. No masses. No lymphadenopathy. [facility] Esa Montoya MD - 03/11/2024 EXAMINATION: CT ANGIOGRAM HEAD NECK HISTORY: Concern for hanging injury. COMPARISON: CT head, 02/05/2021. TECHNIQUE: CT HEAD: Routine unenhanced axial CT images were obtained through the brain. CTA BRAIN: Postcontrast axial CTA images were obtained through the brain. Reconstructed MIP images were obtained in the axial, sagittal and coronal planes. Additional 3D reconstructions were obtained on an independent workstation. CTA NECK: Postcontrast axial CTA images were obtained through the neck. Reconstructed MIP images were obtained in the sagittal and coronal planes. Additional 3D reconstructions were obtained on an independent [employer] workstation. Carotid stenosis is reported according to NASCET criteria. Dose reduction techniques were achieved by using automated exposure control and/or adjustment of mA and/or kV according to patient size and/or use of iterative reconstruction technique. CONTRAST: 75 mL Isovue-370. FINDINGS: CT HEAD: Paranasal sinuses clear. Mastoid air cells clear. Skull base intact. No skull lesion. Orbital contents, nasopharynx normal. Extracranial soft tissue structures are unremarkable. No hydrocephalus. No mass effect. No shift of midline. No acute hemorrhage. No mass. CTA BRAIN: Distal internal carotid arteries are normal. Anterior cerebral arteries are normal. Middle cerebral arteries are normal. Distal vertebral arteries are normal. Basilar artery normal. Cerebellar arteries are normal. Posterior cerebral arteries are normal. No aneurysm. No vascular malformation. CTA NECK: The common carotid arteries are normal. The carotid bifurcations are normal. The internal carotid arteries are normal. No carotid artery stenosis. Left vertebral artery is dominant. Right vertebral artery is hypoplastic. Both vertebral arteries are patent. No acute dissection. The cervical spine is normal in alignment. No acute cervical spine fracture. No soft tissue swelling in the neck. No laryngeal edema. No masses. No lymphadenopathy. IMPRESSION: 1. Normal noncontrast CT of the head. 2. Normal CT angiogram of the brain. 3. No acute carotid vertebral artery dissection. No significant carotid or vertebral artery stenosis. 4. No acute cervical spine fracture. CATHYG/mkv Workstation ID: [id number] [facility] Radiology Study observation (narrative) [facility] CTA Head vessels and Neck ve ssels W contrast IVOrdered By: Esa Montoya on 03-11-2024 [facility] Work Phone: DRUGS OF ABUSE SCREEN, URINE on 03-11-2024 AMPHETAMINE SCREEN, URINE Positive Abnormal None Detected [facility] Comment on above: Order Comment: Scree n results should be used for treatment purposes only. Specimen will be kept for 2 weeks, if the sample is adequate. Confirmation testing can be initiated by calling the lab within 2 weeks. Result Comment: Urin e Amphetamine Cutoff: < 1000 ng/mL = None Detected Performed By: #### 4 6965 #### LAB [address] [place], [place] [address] Harrison Evangelista M.D. [id number] BARBITURATE SCREEN URINE Not detected Normal None Detected [facility] Comment on above: Order Comment: Scree n results should be used for treatment purposes only. Specimen will be kept for 2 weeks, if the sample is adequate. Confirmation testing can be initiated by calling the lab within 2 weeks. Result Comment: Urin e Barbiturates Cutoff: < 200 ng/mL = None Detected Performed By: #### 4 6965 #### MH LAB [address] [address] Harrison Evangelista M.D. [id number] BENZODIAZEPINE SCREEN, URINE Not detected Normal None Detected [facility] Comment on above: Order Comment: Scree n results should be used for treatment purposes only. Specimen will be kept for 2 weeks, if the sample is adequate. Confirmation testing can be initiated by calling the lab within 2 weeks. Result Comment: Urin e Benzodiazepine Cutoff: < 200 ng/mL = None Detected Performed By: #### 4 6965 #### LAB [address] [address] Harrison Evangelista M.D. [id number] BUPRENORPHINE, URINE Not detected Normal None Detected [facility] Comment on above: Order Comment: Scree n results should be used for treatment purposes only. Specimen will be kept for 2 weeks, if the sample is adequate. Confirmation testing can be initiated by calling the lab within 2 weeks. Result Comment: Urin e Buprenorphine Cutoff: < 5 ng/mL = None Detected Performed By: #### 4 6965 #### MH LAB [address] [address] Harrison Evangelista M.D. [id number] CANNABINOID SCREEN URINE Positive Abnormal None Detected [facility] Comment on above: Order Comment: Scree n results should be used for treatment purposes only. Specimen will be kept for 2 weeks, if the sample is adequate. Confirmation testing can be initiated by calling the lab within 2 weeks. Result Comment: Urin e Cannabinoids Cutoff: < 50 ng/mL = None Detected Performed By: #### 4 [id number] #### MH LAB [address] [address] Harrison Evangelista M.D. [id number] COCAINE, SCREEN URINE Not detected Normal None Detecte d [facility] Comment on above: Order Comment: Scree n results should be used for treatment purposes only. Specimen will be kept for 2 weeks, if the sample is adequate. Confirmation testing can be initiated by calling the lab within 2 weeks. Result Comment: Urin e Cocaine Cutoff: < 300 ng/mL = None Detected Performed By: #### 4 [id number] #### MH LAB [address] [address] Harrison Evangelista M.D. [id number] FENTANYL, URINE Not detected Normal None Detected [facility] Comment on above: Order Comment: Scree n results should be used for treatment purposes only. Specimen will be kept for 2 weeks, if the sample is adequate. Confirmation testing can be initiated by calling the lab within 2 weeks. Result Comment: Urin e Fentanyl Cutoff: < 1 ng/mL = None Detected Performed By: #### 4 [id number] #### LAB [address] [place] [address] Harrison Evangelista M.D. [id number] METHADONE SCREEN, URINE Not detected Normal None Detected [facility] Comment on above: Order Comment: Scree n results should be used for treatment purposes only. Specimen will be kept for 2 weeks, if the sample is adequate. Confirmation testing can be initiated by calling the lab within 2 weeks. Result Comment: Urin e Methadone Cutoff: < 300 ng/mL = None Detected Performed By: #### 4 [id number] #### MH LAB [address] [address] Harrison Evangelista M.D. [id number] OPIATE SCREEN URINE Not detected Normal None Detected [facility] Comment on above: Order Comment: Scree n results should be used for treatment purposes only. Specimen will be kept for 2 weeks, if the sample is adequate. Confirmation testing can be initiated by calling the lab within 2 weeks. Result Comment: Urin e Opiates Cutoff: < 300 ng/mL = None Detected Performed By: #### 4 [id number] #### MH LAB [address] [place] [address] Harrison Evangelista M.D. [id number] OXYCODONE SCREEN, URINE Not detected Normal None Detected [facility] Comment on above: Order Comment: Scree n results should be used for treatment purposes only. Specimen will be kept for 2 weeks, if the sample is adequate. Confirmation testing can be initiated by calling the lab within 2 weeks. Result Comment: Johanna celaya Oxycodone Cutoff: < 100 ng/mL = None Detected Performed By: #### 4 [id number] #### LAB [address] [place], [place] [address] Harrison Evangelista M.D. [id number] ED Prov Noteon 03-11-2024 ED Prov Note [facility] EMERGENCY [facility]PART[facility] NAYLA NOTE: NAME: Mikayla Sotelo CSN: [id number] 33 y.o. PCP: Miguel A Whitehead CNP History: Chief Complaint: Psychiatric Evaluation HPI: The history was obtained from the patient. Mikayla is a 33 y.o. male who presents with a chief complaint of Psychiatric Evaluation. Patient presents to the emergency department via pink slip from [facility] after he was found in his garage after possible hanging attempt. Patient had reported to believe that he was swinging prior to them arriving. Patient states that this first time that he has had suicidal thoughts or any type of attempt. He denies ever actually hanging from the electrical cord that was found in his garage. He states that around 2 AM this morning he used a headband to cause some cuts on the sides of his neck in an attempt to get his girlfriend's attention. 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 He states that he was very upset because his girlfriend was not responding to him so he made these claims of wanting to kill himself to her to try and get her attention. He again does admit to methamphetamine use and marijuana use but denies any other drug use. He denies any alcohol use. He denies any previous history of mental health counseling or conditions. He states that he has tried to go through drug counseling and was in rehab and clean for some time but went back to meth after he was kicked out of his house. He denies any medical complaints at this time. No fever/chills, headache, lightheadedness or dizziness, neck pain, paresthesias, radiculopathy, shortness of breath, chest pain, nausea, vomiting, diarrhea, abdominal pain or change urination/urinary symptoms. He reports he is been eating and drinking well. PMHx: Past Medical History: Diagnosis Date - Hepatitis C - Herpes genitalis in men PMSx: History reviewed. No pertinent surgical history. FAM. Hx: Family History Problem Relation Age of Onset - Diabetes Father - Diabetes Maternal Aunt - Diabetes Maternal Grandmother - Diabetes Paternal Grandmother SOC. Hx: Social History Socioeconomic History - Marital status: Tobacco Use - Smoking status: Every Day Current packs/day: 0.50 Types: Cigarettes - Smokeless tobacco: Never Vaping Use - Vaping status: Never Used Substance and Sexual Activity - Alcohol use: Not Currently - Drug use: Yes Types: Marijuana Comment: occasionally MEDs: Previous Medications Medication Sig - albuterol 90 mcg/actuation inhaler Inhale 2 (two) puffs every 6 (six) hours as needed for cough or wheezing . - dextromethorphan-guai FENesin 10-200 mg/5 mL Liqd . . (Patient not taking: Reported on 02/01/2024 .) - ibuprofen (ADVIL,MOTRIN) 800 MG tablet Take 1 (one) tablet (800 mg total) by mouth every 6 (six) hours as needed for pain (penile fracture) . (Patient not taking: Reported on 02/01/2024 .) - ondansetron (Zofran) 4 MG tablet Take 1 (one) tablet (4 mg total) by mouth every 8 (eight) hours as needed . (Patient not taking: Reported on 02/24/2023 .) - sulfamethoxazole-trim ethoprim (BACTRIM,SEPTRA) 200-40 mg/5 mL suspension Take by mouth 2 (two) times a day . ALL: No Known Allergies ROS: Review of Systems All other systems reviewed and are negative. Positives and pertinent negatives as per HPI. All other systems were reviewed and are negative. Physical Exam: Patient Vitals for the past 24 hrs: BP Temp Pulse Resp SpO2 03/11/24 1633 -- -- (!) 100 -- -- 03/11/24 1510 (!) 139/96 98 degrees F (36.7 degrees C) (!) 113 16 98 % Physical Exam Vitals and nursing note reviewed. Constitutional: General: He is awake. He is not in acute distress. Appearance: Normal appearance. He is not ill-appearing, toxic-appearing or diaphoretic. HENT: Head: Normocephalic and atraumatic. Nose: Nose normal. Mouth/Throat: Mouth: Mucous membranes are moist. Pharynx: Oropharynx is clear. Eyes: General: No scleral icterus. Conjunctiva/sclera: Conjunctivae normal. Neck: Trachea: Trachea and phonation normal. Cardiovascular: Rate and Rhythm: Normal rate and regular rhythm. Pulses: Radial pulses are 2+ on the right side and 2+ on the left side. Heart sounds: Normal heart sounds, S1 normal and S2 normal. No murmur heard. No friction rub. No gallop. Musculoskeletal: Cervical back: Full passive range of motion without pain, normal range of motion and neck supple. Erythema present. No edema, rigidity, torticollis or crepitus. No pain with movement, spinous process tenderness or muscular tenderness. Normal range of motion. Right lower leg: No swelling. No edema. Left lower leg: No swelling. No edema. Pulmonary: Effort: Pulmonary effort is normal. No respiratory distress. Breath sounds: Normal breath sounds. No decreased breath sounds, wheezing, rhonchi or rales. Abdominal: General: (more content not included)... Normal [facility] Ethanol [Mass/Vol]Ordered By : Chrystal Lopez on 03-11-2024 Interpretation and review of laboratory results Normal [facility] Influenza virus A and B RNA and SARS-CoV-2 (COVID-19) N gene panel MELISSA+probe (Resp)Ordered By: Nicole Oliveira on 03-11-2024 FLUAV RNA MELISSA+probe Ql (Unsp spec) Not detected Not Detected [facility] FLUBV RNA MELISSA+probe Ql (Unsp spec) Not detected Not Detected [facility] Interpretation and review of laboratory results Abnormal [facility] SARS-CoV-2 (COVID-19) RNA MELISSA+probe Ql (Resp) Detected Abnormal Not Detected [facility] No Panel Informationon 03-11 Extra Tube Hold for add-ons. [facility] Comment on above: Auto resulted. [facility] RAPID STREP SCREENon 025 S. pyogenes Ag IA Ql (Unsp spec) Not detected Normal Not Detected [facility] Comment on above: Order Comment: Test Method: Nucleic Acid Amplification Performed By: #### [id number] #### LAB [address] [place], [place] [address] Harrison Evangelista M.D. [id number] S. pyogenes Ag Ql (Throat)on 03-11-2024 Interpretation and review of laboratory results Normal [facility] Strep Group A Molecular Not detected Not Detected [facility] Test Method: Nucleic Acid Amplification [facility] SALICYLATE LEVELon 5 SALICYLATE < Normal 0.0-20.0 [facility] Comment on above: Order Comment: Thera peutic Range: 10-20 mg/dLPotentially Toxic: >30 mg/dL Performed By: #### 4 [id number] #### LAB [address] [place] [address] Harrison Evangelista M.D. [id number] Salicylate Levelon 5 Salicylates [Mass/Vol] mg/dL 0.0 - 20.0 mg/dL [facility] Salicylates [Mass/Vol]on Interpretation and review of laboratory results Normal [facility] Therapeutic Range: 10-20 mg/dL Potentially Toxic: >30 mg/dL [facility] TSHon 03-11-2024 TSH Qn 1.35 m[IU]/L Normal 0.27-4.20 [facility] Comment on above: Performed By: #### 4 [id number] #### LAB [address] [place] [address] Harrison Evangelista M.D. [id number] TSH DL <= 0.005 mIU/L Qnon 0 03-11-2024 Interpretation and review of laboratory results Normal [facility] TSH Qn 1.35 m[IU]/L [facility] Urine Drug Screenon 03-11-19 25 Amphetamines Ql (U) Positive Abnormal None Detected [facility] Comment on above: Urine Amphetamine Cu toff: < 1000 ng/mL = None Detected Barbiturates Screen Ql (U) Not detected None Detected [facility] Comment on above: Urine Barbiturates C utoff: < 200 ng/mL = None Detected Benzodiazepines Ql (U) Not detected None Detect ed [facility] Comment on above: Urine Benzodiazepine Cutoff: < 200 ng/mL = None Detected Buprenorphine Ql (U) Not detected None Detected [facility] Comment on above: Urine Buprenorphine Cutoff: < 5 ng/mL = None Detected Cannabinoids Screen Ql (U) Positive Abnormal None Detected [facility] Comment on above: Urine Cannabinoids C utoff: < 50 ng/mL = None Detected Cocaine Ql (U) Not detected None Detected [facility] Comment on above: Urine Cocaine Cutoff : < 300 ng/mL = None Detected fentaNYL+Norfentanyl Screen Ql (U) Not detected None Detected [facility] Comment on above: Urine Fentanyl Cutof f: < 1 ng/mL = None Detected Interpretation and review of laboratory results Abnormal [facility] Methadone Screen Ql (U) Not detected None Detected [facility] Comment on above: Urine Methadone Cuto ff: < 300 ng/mL = None Detected Opiates Screen Ql (U) Not detected None Detecte d [facility] Comment on above: Urine Opiates Cutoff : < 300 ng/mL = None Detected oxyCODONE Ql (U) Not detected None Detected [facility] Comment on above: Urine Oxycodone Cuto ff: < 100 ng/mL = None Detected Screen results shoul d be used for treatment purposes only. Specimen will be kept for 2 weeks, if the sample is adequate. Confirmation testing can be initiated by calling the lab within 2 weeks. [facility] CBC WITH AUTO DIFFERENTIALon 02-11-2024 BASOPHILS ABSOLUTE COUNT 0.00 K/mcL Normal 0.00-0.30 [facility] Comment on above: Performed By: #### L [id number] #### SH LAB [address] [place] [address] Harrison Evangelista M.D. [id number] Basophils/100 WBC (Bld) 0.0 % Normal [facility] Comment on above: Performed By: #### L [id number] #### SH LAB [address] [place] [address] Harrison Evangelista M.D. [id number] Eosinophils (Bld) [#/Vol] 0.00 10*3/uL Normal 0.00-0.50 [facility] Comment on above: Performed By: #### L [id number] #### SH LAB [address] [place] [address] Harrison Evangelista M.D. [id number] Eosinophils/100 WBC (Bld) 0.0 % [facility] Comment on above: Performed By: #### L [id number] #### SH LAB [address] [place], [place] [id number] Harriosn Evangelista M.D. [id number] Erythrocyte distribution width (RBC) [Ratio] 12.5 % Normal 11.6-14.8 [facility] Comment on above: Performed By: #### L [id number] #### SH LAB [address] [place] [address] Harrison Evangelista M.D. [id number] Hematocrit (Bld) [Volume fraction] 48.9 % Normal 41.0-53.0 [facility] Comment on above: Performed By: #### L [id number] #### SH LAB [address] [place] [address] Harrison Evangelista M.D. [id number] Hemoglobin (Bld) [Mass/Vol] 16.5 g/dL Normal 13.5-17.5 [facility] Comment on above: Performed By: #### L [id number] #### SH [place] [address] Harrison Evangelista M.D. [id number] IG ABSOLUTE 0.07 K/mcL Normal 0.00-0.30 [facility] Comment on above: Performed By: #### L [id number] #### SH [place] [address] Harrison Evangelista M.D. [id number] IG PERCENT 0.90 % Normal [facility] Comment on above: Result Comment: The IG parameter is the percentage of metamyelocytes, myelocytes and promyelocytes. An immature granulocyte count (IG) of 1% or more suggests the possibility of infection, an IG count of 3% is very likely related to an infection. Performed By: #### L [id number] #### SH LAB [address] [place] [address] Harrison Evangelista M.D. [id number] Lymphocytes (Bld) [#/Vol] 2.74 10*3/uL Normal 0.90-4.00 [facility] Comment on above: Performed By: #### L [id number] #### SH [place] [address] Harrison Evangelista M.D. [id number] Lymphocytes/100 WBC (Bld) 34.0 % Normal [facility] Comment on above: Performed By: #### L [id number] #### SH LAB [address] [place] [address] Harrison Evangelista M.D. [id number] MCH (RBC) [Entitic mass] 30.3 pg Normal 26.0-34.0 [facility] Comment on above: Performed By: #### L [id number] #### SH LAB [address] [place] [address] Harrison Evangelista M.D. [id number] MCV (RBC) [Entitic vol] 89.7 fL Normal 80.0-100.0 [facility] Comment on above: Performed By: #### L [id number] #### SH LAB [address] [place] [address] Harrison Evangelista M.D. [id number] MEAN CORPUSCULAR HEMOGLOBIN CONC 33.7 g/dL Normal 31.0-37.0 [facility] Comment on above: Performed By: #### L [id number] #### SH LAB [address] [place] [address] Harrison Evangelista M.D. [id number] Monocytes (Bld) [#/Vol] 0.96 10*3/uL High 0.30-0.90 [facility] Comment on above: Performed By: #### L [id number] #### SH LAB [address] [place] [address] Harrison Evangelista M.D. [id number] Monocytes/100 WBC (Bld) 11.9 % Normal [facility] Comment on above: Performed By: #### L [id number] #### SH LAB [address] [place] [address] Harrison Evangelista M.D. [id number] NEUTROPHILS ABSOLUTE COUNT 4.30 K/mcL Normal 1.70-7.00 [facility] Comment on above: Performed By: #### L [id number] #### SH LAB [address] [place] [address] Harrison Evangelista M.D. [id number] Neutrophils/100 WBC (Bld) 53.2 % Normal [facility] Comment on above: Performed By: #### L [id number] #### SH LAB [address] [place] [address] Harrison Evangelista M.D. [id number] Platelet mean volume (Bld) [Entitic vol] 8.5 fL Low 9.4-12.4 [facility] Comment on above: Performed By: #### L [id number] #### SH LAB [address] [place], [place] [address] Harrison Evangelista M.D. [id number] Platelets (Bld) [#/Vol] 207 10*3/uL Normal 150-400 [facility] Comment on above: Performed By: #### L [id number] #### SH LAB [address] [place] [address] Harrison Evangelista M.D. [id number] RBC (Bld) [#/Vol] 5.45 10*6/uL Normal 4.50-5.90 [facility] Comment on above: Performed By: #### L [id number] #### SH LAB [address] [place], [place] [address] Harrison Evangelista M.D. [id number] WBC (Bld) [#/Vol] 8.07 10*3/uL Normal 4.50-11.00 [facility] Comment on above: Performed By: #### L [id number] #### SH LAB [address] [place] [address] Harrison Evangelista M.D. [id number] COMPREHENSIVE METABOLIC PANE [facility] 02-11-2024 Albumin [Mass/Vol] 4.3 g/dL Normal 3.2-5.2 [facility] Comment on above: Order Comment: [facility] has implemented the eGFR calculation approach that does not have a coefficient for race that conforms to the NKF-ASN Task Force Recommendations. Performed By: #### 4 [id number] #### SH LAB [address] [place] [address] Harrison Evangelista M.D. [id number] ALP [Catalytic activity/Vol] 103 U/L Normal 40-140 [facility] Comment on above: Order Comment: [facility] has implemented the eGFR calculation approach that does not have a coefficient for race that conforms to the NKF-ASN Task Force Recommendations. Performed By: #### 4 [id number] #### SH [place] [address] Harrison Evangelista M.D. [id number] ALT [Catalytic activity/Vol] 37 U/L Normal 0-50 U/L [facility] Comment on above: Order Comment: [facility] has implemented the eGFR calculation approach that does not have a coefficient for race that conforms to the NKF-ASN Task Force Recommendations. Performed By: #### 4 [id number] #### SH [place] [address] Harrison Evangelista M.D. [id number] Anion gap [Moles/Vol] 12 mmol/L Normal 10-20 [facility] Comment on above: Order Comment: [facility] has implemented the eGFR calculation approach that does not have a coefficient for race that conforms to the NKF-ASN Task Force Recommendations. Performed By: #### 4 [id number] #### [place] [address] Harrison Evangelista M.D. [id number] AST [Catalytic activity/Vol] 28 U/L Normal 0-50 U/L [facility] Comment on above: Order Comment: [facility] has implemented the eGFR calculation approach that does not have a coefficient for race that conforms to the NKF-ASN Task Force Recommendations. Performed By: #### 4 [id number] #### SH [place] [address] Harrison Evangelista M.D. [id number] Bilirubin [Mass/Vol] 0.3 mg/dL Normal 0.0-1.3 [facility] Comment on above: Order Comment: [facility] has implemented the eGFR calculation approach that does not have a coefficient for race that conforms to the NKF-ASN Task Force Recommendations. Performed By: #### 4 [id number] #### SH [place] [address] Harrison Evangelista M.D. [id number] Calcium [Mass/Vol] 9.4 mg/dL Normal 8.4-10.2 [facility] Comment on above: Order Comment: [facility] has implemented the eGFR calculation approach that does not have a coefficient for race that conforms to the NKF-ASN Task Force Recommendations. Performed By: #### 4 [id number] #### SH LAB [address] [place] [address] Harrison Evangelista M.D. [id number] Chloride [Moles/Vol] 104 mmol/L Normal 98-108 [facility] Comment on above: Order Comment: [facility] has implemented the eGFR calculation approach that does not have a coefficient for race that conforms to the NKF-ASN Task Force Recommendations. Performed By: #### 4 [id number] #### SH [address] [address] Harrison Evangelista M.D. [id number] Creatinine [Mass/Vol] 1.05 mg/dL Normal 0.50-1.30 [facility] Comment on above: Order Comment: [facility] has implemented the eGFR calculation approach that does not have a coefficient for race that conforms to the NKF-ASN Task Force Recommendations. Performed By: #### 4 [id number] #### LAB [address] [place] [address] Harrison Evangelista M.D. [id number] EGFR 96 mL/min/1.73 m2 Normal >=60 [facility] Comment on above: Order Comment: [facility] has implemented the eGFR calculation approach that does not have a coefficient for race that conforms to the NKF-ASN Task Force Recommendations. Result Comment: Marisol mated GFR was calculated using the 2020 CKD-EPI creatinine equation. Performed By: #### 4 [id number] #### SH LAB [address] [place] [address] Harrison Evangelista M.D. [id number] Glucose [Mass/Vol] 82 mg/dL Normal 65-99 [facility] Comment on above: Order Comment: [facility] has implemented the eGFR calculation approach that does not have a coefficient for race that conforms to the NKF-ASN Task Force Recommendations. Performed By: #### 4 [id number] #### LAB [address] [place] [address] Harrison Evangelista M.D. [id number] HCO3 (Bld) [Moles/Vol] 28 mmol/L Normal 21-32 [facility] Comment on above: Order Comment: [facility] has implemented the eGFR calculation approach that does not have a coefficient for race that conforms to the NKF-ASN Task Force Recommendations. Performed By: #### 4 [id number] #### [place] [id number] Harrison Evangelista M.D. [id number] Potassium [Moles/Vol] 3.6 mmol/L Normal 3.5-5.1 [facility] Comment on above: Order Comment: [facility] has implemented the eGFR calculation approach that does not have a coefficient for race that conforms to the NKF-ASN Task Force Recommendations. Performed By: #### 4 [id number] #### [place] [address] Harrison Evangelista M.D. [id number] Protein [Mass/Vol] 7.0 g/dL Normal 6.0-8.0 [facility] Comment on above: Order Comment: [facility] has implemented the eGFR calculation approach that does not have a coefficient for race that conforms to the NKF-ASN Task Force Recommendations. Performed By: #### 4 [id number] #### [place] [id number] Harrison Evangelista M.D. [id number] Sodium [Moles/Vol] 140 mmol/L Normal 135-145 [facility] Comment on above: Order Comment: [facility] has implemented the eGFR calculation approach that does not have a coefficient for race that conforms to the NKF-ASN Task Force Recommendations. Performed By: #### 4 6126 #### SH [place] [address] Harrison Evangelista M.D. [id number] Urea nitrogen [Mass/Vol] 14 mg/dL Normal 8-25 [facility] Comment on above: Order Comment: [facility] has implemented the eGFR calculation approach that does not have a coefficient for race that conforms to the NKF-ASN Task Force Recommendations. Performed By: #### 4 6126 #### SH LAB [address] [place] [address] Harrison Evangelista M.D. [id number] Urea nitrogen/Creatinine [Mass ratio] 13.3 mg/mg Normal 10.0-20.0 [facility] Comment on above: Order Comment: [facility] has implemented the eGFR calculation approach that does not have a coefficient for race that conforms to the NKF-ASN Task Force Recommendations. Performed By: #### 4 [id number] #### SH LAB [address] [place] [address] Harrison Evangelista M.D. [id number] D-DIMER, QUANTITATIVEon 01-15 D-DIMER QUANTITATIVE < Normal 0.27-0.49 [facility] Comment on above: Order Comment: A D-d puja concentration of <0.5 micrograms per milliliter FEU is considered a low probability for pulmonary embolus (PE) and deep venous thrombosis (DVT). Results of this test should always be interpreted in conjunction with the patient's medical history,clinical presentation, and other findings. Clinical diagnosis should not be based on the results of the D-dimer alone. Performed By: #### 4 [id number] #### SH LAB [address] [place] [address] Harrison Evangelista M.D. [id number] ED Prov Noteon 02-11-2024 ED Prov Note ED PROVIDER NOTE [facility] EMERGENCY [facility] NAME: Mikayla Sotelo AGE: 33 y.o. : 1990 VISIT DATE: 02/11/2024 CSN: [id number] PCP: Miguel A Whitehead, SANDRA Chief Complaint Patient presents with Chest Pain Mr. Sotelo is a 33-year-old white male with a past medical history of genital herpes and hepatitis C. Patient presents with a complaint of chest pain. Patient states the pain started last night. Pain was located to the left chest. Occasionally would radiate down his left arm. The pain would last a second and go away on its own. The pain was 8 out of 10. He also felt as though his heart was fluttering. He states that he felt like there was air bubbles in his heart. Patient states over the last 2 weeks he has had cold symptoms and last night around 8:00 he took a promethazine. Patient denies fever, headache, sore throat, earache, runny nose, abdominal pain, nausea, vomiting, diarrhea. Past Medical History: Diagnosis Date Hepatitis C Herpes genitalis in men History reviewed. No pertinent surgical history. Family History Problem Relation Age of Onset Diabetes Father Diabetes Maternal Aunt Diabetes Maternal Grandmother Diabetes Paternal Grandmother Social History Socioeconomic History Marital status: Tobacco Use Smoking status: Every Day Current packs/day: 0.50 Types: Cigarettes Smokeless tobacco: Never Vaping Use Vaping status: Never Used Substance and Sexual Activity Alcohol use: Not Currently Drug use: Yes Types: Marijuana Comment: occasionally Previous Medications Medication Sig albuterol 90 mcg/actuation inhaler Inhale 2 (two) puffs every 6 (six) hours as needed for cough or wheezing . dextromethorphan-guai FENesin 10-200 mg/5 mL Liqd . . (Patient not taking: Reported on 02/01/2024 .) ibuprofen (ADVIL,MOTRIN) 800 MG tablet Take 1 (one) tablet (800 mg total) by mouth every 6 (six) hours as needed for pain (penile fracture) . (Patient not taking: Reported on 02/01/2024 .) ondansetron (Zofran) 4 MG tablet Take 1 (one) tablet (4 mg total) by mouth every 8 (eight) hours as needed . (Patient not taking: Reported on 02/24/2023 .) sulfamethoxazole-trim ethoprim (BACTRIM,SEPTRA) 200-40 mg/5 mL suspension Take by mouth 2 (two) times a day . No Known Allergies Review of Systems All other systems reviewed and are negative. Patient Vitals for the past 24 hrs: BP Temp Temp src Pulse Resp SpO2 Height Weight 02/11/24 1200 (!) 138/95 -- -- 88 13 99 % -- -- 02/11/24 1056 (!) 152/91 98.3 degrees F (36.8 degrees C) Oral (!) 105 16 98 % 6' 1 68 kg (150 lb) Physical Exam Vitals and nursing note reviewed. Constitutional: General: He is not in acute distress. Appearance: He is well-developed. He is not ill-appearing or toxic-appearing. Comments: Thin wm HENT: Head: Normocephalic and atraumatic. Eyes: Extraocular Movements: Extraocular movements intact. Pupils: Pupils are equal, round, and reactive to light. Cardiovascular: Rate and Rhythm: Normal rate and regular rhythm. Heart sounds: Normal heart sounds. No murmur heard. Musculoskeletal: General: Normal range of motion. Cervical back: Normal range of motion and neck supple. Right lower leg: No edema. Left lower leg: No edema. Pulmonary: Effort: Pulmonary effort is normal. No respiratory distress. Breath sounds: Normal breath sounds. No stridor. Chest: Chest wall: No tenderness or crepitus. Abdominal: General: Bowel sounds are normal. Palpations: Abdomen is soft. Skin: General: Skin is warm and dry. Capillary Refill: Capillary refill takes less than 2 seconds. Neurological: General: No focal deficit present. Mental Status: He is alert and oriented to person, place, and time. Psychiatric: Mood and Affect: Mood normal. Behavior: Behavior normal. Laboratory & Radiographic Imaging (if done): Results for orders placed or performed during the hospital encounter of 02/11/24 D-Dimer Result Value Ref Range D-Dimer <0.27 0.27 - 0.49 mcg/mL FEU CMP Result Value Ref Range Sodium 140 135 - 145 mmol/L Potassium 3.6 3.5 - 5.1 mmol/L Chloride 104 98 - 108 mmol/L Bicarbonate 28 21 - 32 mmol/L Anion Gap 12 10 - 20 mmol/L Glucose 82 65 - 99 mg/dL BUN 14 8 - 25 mg/dL Creatinine 1.05 0.50 - 1.30 mg/dL eGFR 96 >=60 mL/min/1.73 m2 BUN/Creatinine Ratio 13.3 10.0 - 20.0 Total Protein 7.0 6.0 - 8.0 g/dL Albumin 4.3 3.2 - 5.2 g/dL Calcium 9.4 8.4 - 10.2 mg/dL Alkaline Phosphatase 103 40 - 140 U/L AST 28 0-50 U/L U/L ALT 37 0-50 U/L U/L Total Bilirubin 0.3 0.0 - 1.3 mg/dL Lipase Result Value Ref Range Lipase 30 15 - 65 U/L PT/INR Result Value Ref Range Protime (PT) 13.2 11.8 - 14.3 seconds INR 1.0 0.8 - 1.1 Troponin x 2 (Now and Repeat in 3 hours) Result Value Ref Range Troponin T <6 <=22 ng/L Troponin T Interpretation Normal CBC Auto Differential Result Value Ref Range WBC 8.07 4.50 - 11.00 K/mcL (more content not included)... Normal [facility] LIPASEon 02-11-2024 Lipase [Catalytic activity/Vol] 30 U/L Normal 15-65 [facility] Comment on above: Performed By: #### 4 [id number] #### [address] [address] Harrison Evangelista M.D. [id number] PT/INRon 02-11-2024 INR Coag (PPP) [Relative time] 1.0 {INR} Normal 0.8-1.1 [facility] Comment on above: Order Comment: Ashley carmichael the induction phase of oral anticoagulation, the INR may not reflect the anticoagulation status of the patient. Therapeutic ranges for INR's are: Most clinical situations: INR 2.0-3.0 Mechanical Prosthetic Valve: INR 2.5-3.5 Critical: INR >5.0 Performed By: #### [id number] #### SH [address] [address] Harrison Evangelista M.D. [id number] PT Coag (PPP) [Time] 13.2 s Normal 11.8-14.3 [facility] Comment on above: Order Comment: Ashley carmichael the induction phase of oral anticoagulation, the INR may not reflect the anticoagulation status of the patient. Therapeutic ranges for INR's are: Most clinical situations: INR 2.0-3.0 Mechanical Prosthetic Valve: INR 2.5-3.5 Critical: INR >5.0 Performed By: #### [id number] #### SH [address] [address] Harrison Evangelista M.D. [id number] TROPONINon 02-11-2024 BASELINE TROPONIN T NG/L < Normal <=22 [facility] Comment on above: Performed By: #### 4 [id number] #### [facility] [address] [place], [place] [address] Harrison Evangelista M.D. [id number] TROPONIN T INTERPRETATION Normal Normal [facility] Comment on above: Performed By: #### 4 [id number] #### [facility] [address] [place], [place] [address] Harrison Evangelista M.D. [id number] XR CHEST PA/APon 02-11-2024 XR CHEST PA/AP EXAMINATION: XR CHEST PA/AP 02/11/2024 11:03 AM HISTORY: ORDERING SYSTEM PROVIDED HISTORY: Chest pain, TECHNOLOGIST PROVIDED HISTORY: Illness/Other Reason for Exam: CP Cancer History: Unknown Surgery, Radiation History: Unknown Encounter Type: Initial Additional Signs and Symptoms: None ORDERING SYSTEM PROVIDED DIAGNOSIS CODES: COMPARISON: 02/24/2023. FINDINGS: A single, portable, upright, frontal view of the chest was obtained. The cardiomediastinal silhouette is unremarkable. There is no pneumothorax, pulmonary vascular congestion, pleural effusion, or focal airspace consolidation. Bilateral nipple piercings are present. IMPRESSION: No acute cardiopulmonary disease. RPS/lab Workstation ID: [id number] Dictated by: MALCOM OLMEDO on Sat Feb 11, 2024 12:38:24 PM EST Transcribed by: TONO LAGUNA on Sat Feb 11, 2024 12:59:58 PM EST Finalized by: MALCOM OLMEDO on Sat Feb 11, 2024 1:23:58 PM EST Normal [facility] Comment on above: Order Comment: Injur y/Trauma or Illness?:Illness/Other How long have you had these symptoms (acute/chronic)?:Acute Reason for exam?:CP History of cancer?:Unknown Surgeries, chemotherapy, or radiation?:Unknown Type of Exam?:Initial Additional signs and symptoms?:None No Panel Informationon 01-31 ELLIE Monterroso DPM 02/01/2024 2:12 PM Destruction of lesion Timeout: Verbal Consent obtained?: Yes Written Consent obtained?: Yes Date:: 02/01/2024 Consent given by:: Patient Procedure: Procedure Performed for: Right great toenail total temporary nail avulsion Performed by: Physician Dr. ELLIE Monterroso DPM Fenestrated: No Bleeding: Minimal Hemostasis Achieved: N/A Secured: Yes Secured with: Bandage Dressing Applied: Yes Type of dressing applied: Adaptic Pain Control: 2% Lidocaine Procedural Pain:: 0 Post Procedural Pain:: 0 Additional Procedure details:: Attention was directed the right great toenail. After proper anesthesia was appreciated area was prepped and draped in normal aseptic fashion using Betadine. Rubber band tourniquet was applied. Huntly elevator was used to free the nail plate from the nailbed. Approximately 5 2 to 5 cc of blood was expressed. Attention was directed to the proximal nail fold where the nail was then avulsed appropriately. It is noted that there is a very small nailbed laceration but well opposed. Measures approximately 4 mm in length. No exposed bone noted. No purulence or malodor. Area was then thoroughly irrigated with copious amounts of sterile saline. Bacitracin and dry sterile dressing applied using Adaptic 4 x 4 Kilo and Coban. Response to Treatment:: Procedure was tolerated well [facility] XR FOOT RIGHT 3+ VIEWS (ISAIAS DARBelgica)on 02-01-2024 XR FOOT RIGHT 3+ VIEWS (STANDARD) 3 views of the right foot reviewed today AP MO and lateral. No acute fracture or dislocation of note. No evidence of cortical erosion or subcutaneous emphysema.. Dictated by: ELLIE MONTERROSO on Daina Feb 02, 2024 8:17:18 AM EST Transcribed by: ELLIE MONTERROSO on [facility] Feb 02, 2024 8:17:18 AM EST Finalized by: ELLIE MONTERROSO on [facility] Feb 02, 2024 8:17:18 AM EST Normal [facility] Comment on above: Order Comment: Injur y/Trauma or Illness?:Illness/Other How long have you had these symptoms (acute/chronic)?:Unknown Reason for exam?:Right great toe pain History of cancer?:Unknown Surgeries, chemotherapy, or radiation?:Unknown Type of Exam?:Initial Additional signs and symptoms?:Right great toe pain ED Prov Noteon 01-30-2024 ED Prov Note ED PROVIDER NOTE [facility] EMERGENCY DEPART[facility] NAME: Mikayla Sotelo AGE: 33 y.o. : 1990 VISIT DATE: 01/30/2024 CSN: [id number] PCP: Miguel A Whitehead, SANDRA Chief Complaint Patient presents with Toe Pain This is a 33-year-old male presents to the emergency department with right-sided great toe pain. Patient notes that he has history of chronic intermittently ingrown toenail. He notes that he usually cuts the toenail out. However it gets red and grown and becomes painful again. Patient notes that the area around the toenails become red and painful. The toenail is not ingrown like it normally is. No drainage. No trauma Past Medical History: Diagnosis Date Hepatitis C Herpes genitalis in men History reviewed. No pertinent surgical history. Family History Problem Relation Age of Onset Diabetes Father Diabetes Maternal Aunt Diabetes Maternal Grandmother Diabetes Paternal Grandmother Social History Socioeconomic History Marital status: Single Tobacco Use Smoking status: Every Day Current packs/day: 0.50 Types: Cigarettes Smokeless tobacco: Never Vaping Use Vaping status: Never Used Substance and Sexual Activity Alcohol use: Not Currently Drug use: Yes Types: Marijuana Comment: occasionally Previous Medications Medication Sig albuterol 90 mcg/actuation inhaler Inhale 2 (two) puffs every 6 (six) hours as needed for cough or wheezing . dextromethorphan-guai FENesin 10-200 mg/5 mL Liqd . . ibuprofen (ADVIL,MOTRIN) 800 MG tablet Take 1 (one) tablet (800 mg total) by mouth every 6 (six) hours as needed for pain (penile fracture) . ondansetron (Zofran) 4 MG tablet Take 1 (one) tablet (4 mg total) by mouth every 8 (eight) hours as needed . (Patient not taking: Reported on 02/24/2023 .) No Known Allergies Review of Systems All other systems reviewed and are negative. Patient Vitals for the past 24 hrs: BP Pulse Resp SpO2 Height Weight 01/30/24 0329 -- -- -- 99 % -- -- 01/30/24 0326 139/87 (!) 110 18 99 % 6' 1 68 kg (150 lb) Physical Exam Vitals and nursing note reviewed. Constitutional: Appearance: He is well-developed. He is not toxic-appearing. HENT: Head: Normocephalic and atraumatic. Eyes: Pupils: Pupils are equal, round, and reactive to light. Musculoskeletal: General: No deformity or signs of injury. Cervical back: Normal range of motion and neck supple. Comments: Right great toe with area of erythema and tenderness. No fluctuance Pulmonary: Effort: Pulmonary effort is normal. No respiratory distress. Skin: Findings: No erythema or rash. Neurological: Mental Status: He is alert and oriented to person, place, and time. Psychiatric: Mood and Affect: Mood normal. Behavior: Behavior normal. Laboratory & Radiographic Imaging (if done): No results found for this visit on 01/30/24. XR Foot Right 3+ Views (Standard) Final Result 1. Normal exam. No change from prior study. Workstation ID: [id number] Procedures Medical Decision Making Patient does have an infection to the right great toe. Will prescribe Bactrim and have him follow-up with podiatry given his chronic toenail problems. Nothing drainable at this time. The patient has been informed that they may have pre-hypertension or hypertension based on a blood pressure reading in the Emergency Department. I recommend that the patient call the primary care provider listed on their discharge instructions or a physician of their choice as soon as possible to arrange follow-up in the next 4 weeks for further evaluation of possible pre-hypertension or hypertension. . Clinical Impression: 1. Toe infection ED Disposition ED Disposition Discharge Condition Stable Comment Mikayla Sotelo discharged to home/self care in stable condition. Follow-up Information 1. Shahriar Holley DPM. Specialty: Podiatry [address] [place] [id number] Contact information for after-discharge care Follow-up information has not been specified. New Prescriptions sulfamethoxazole-trim ethoprim (BACTRIM DS,SEPTRA DS) 800-160 mg per tablet Take 1 (one) tablet by mouth 2 (two) times a day for 7 days . Shelby Duque MD 01/30/24 0507 AUTHENTICATED BY SHELBY DUQUE, ON 01/30/2024 05:07:55 [facility] XR FOOT RIGHT 3+ VIEWS (ISAIAS CASTLE)on 01-30-2024 XR FOOT RIGHT 3+ VIEWS (STANDARD) EXAMINATION: XR FOOT RIGHT 3+ VIEWS (STANDARD) 01/30/2024 3:31 am HISTORY: ORDERING SYSTEM PROVIDED HISTORY: dog bite r great toe -attn r great toe, TECHNOLOGIST PROVIDED HISTORY: Injury/Trauma Reason for exam: swollen 1st digit and foot, dog bite Cancer History: u Surgery, RadiationHistory: u Encounter Type: Initial Mechanism of injury: dog bite ORDERING SYSTEM PROVIDED DIAGNOSIS CODES: COMPARISON: 03/30/2014 FINDINGS: There is no fracture, dislocation, or other acute osseous abnormality. Joint spaces are preserved there are no abnormal soft tissue calcifications. There are no radiopaque foreign bodies. IMPRESSION: 1. Normal exam. No change from prior study. Workstation ID: [id number] Dictated by: ALY COTTON on TueJan 30, 2024 4:57:15 AM EST Transcribed by: ALY COTTON on TueJan 30, 2024 4:57:15 AM EST Finalized by: ALY COTTON on TueJan 30, 2024 4:57:15 AM EST Normal [facility] Comment on above: Order Comment: Injur y/Trauma or Illness?:Injury/Trauma How long have you had these symptoms (acute/chronic)?:Acute Reason for exam?:swollen 1st digit and foot, dog bite History of cancer?:u Surgeries, chemotherapy, or radiation?:u Type of Exam?:Initial Mechanism of injury?:dog bite ED Prov Noteon 11-21-2023 ED Prov Note [facility] EMERGENCY DEPARTMENT ATTENDING NOTE: NAME: Mikayla Sotelo CSN: [id number] 33 y.o. PCP: Miguel A Whitehead CNP History: Chief Complaint: Abscess (Large red, inflamed lump on left pelvic area x 1 week ) HPI: The history was obtained from the patient. Mikayla is a 33 y.o. male who presents with a chief complaint of abscess. The patient has a history of hepatitis C, MRSA pneumonia and states that for the past week he has had an abscess in the left lower abdomen. He has had these before but never this bad. He also complains of a productive cough with green sputum and intermittent shortness of breath. He denies fever nor any other complaints Social history smoker ED Course / Medical Decision Making: ED COURSE: 33-year-old male presents with abscess and cough. Differentials include bronchitis versus pneumonia. He is given doxycycline as he meets clinical diagnosis for pneumonia. Regarding the abscess, please refer to the procedure note. Will recheck blood pressure prior to discharge After reviewing the items above, I did look at previous medical documentation, such as recent hospitalizations, office visits, and/or recent consultations with PCP/specialist. SDOH: Another factor that I considered in Mikayla's care was his Social Determinants of Health (SDOH). During this ED encounter, he did NOT appear to have any significant issues identified. Laboratory & Radiological Imaging (if done): Labs Reviewed - No data to display No orders to display Clinical Impression: 1. Abscess 2. Community acquired pneumonia, unspecified laterality ROS: Review of Systems Skin: Positive for wound. Positives and pertinent negatives as per HPI. All other systems were reviewed and are negative. Physical Exam: Patient Vitals for the past 24 hrs: BP Temp Temp src Pulse Resp SpO2 Height Weight 11/21/23 0123 (!) 148/108 97.9 degrees F (36.6 degrees C) Oral (!) 114 18 100 % 6' 1 68 kg (150 lb) Physical Exam Vitals and nursing note reviewed. Constitutional: General: He is not in acute distress. Appearance: Normal appearance. He is not ill-appearing. HENT: Head: Normocephalic and atraumatic. Nose: Nose normal. No rhinorrhea. Mouth/Throat: Mouth: Mucous membranes are moist. Pharynx: Oropharynx is clear. Eyes: Extraocular Movements: Extraocular movements intact. Conjunctiva/sclera: Conjunctivae normal. Cardiovascular: Rate and Rhythm: Normal rate and regular rhythm. Heart sounds: Normal heart sounds. Pulmonary: Effort: Pulmonary effort is normal. Breath sounds: Normal breath sounds. Abdominal: Palpations: Abdomen is soft. Tenderness: There is no abdominal tenderness. Skin: General: Skin is warm and dry. Capillary Refill: Capillary refill takes less than 2 seconds. Neurological: Mental Status: He is alert. Psychiatric: Mood and Affect: Mood normal. Behavior: Behavior normal. Incision/Drainage Date/Time: 11/21/2023 1:59 AM Performed by: Luis Espino MD Authorized by: Luis Espino MD Verbal consent: obtained Time out: Immediately prior to procedure a time out was called to verify the correct patient, procedure, equipment, customer support coordinator and site/side marked as required. Type: abscess Body area: trunk Location details: abdomen Anesthesia: local infiltration Anesthesia: Local Anesthetic: lidocaine 1% without epinephrine Anesthetic total: 4 mL Scalpel size: 11 Incision type: single straight Incision depth: dermal Complexity: simple Drainage: purulent Drainage amount: moderate Wound treatment: drain placed Packing material: 1/4 in iodoform gauze Patient tolerance: patient tolerated the procedure well with no immediate complications I did personally review Mikayla's past medical history, surgical history, social history, as well as family history (when relevant). In this case, I also oversaw the his drug management by reviewing his medication list, allergy list, as well as the medications that I prescribed during the ED course and/or recommended as an out-patient (including possible OTC medications such as acetaminophen, NSAIDs , etc). 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 New Prescriptions doxycycline hyclate (VIBRA-TABS) 100 MG tablet Take 1 (one) tablet (10 (more content not included)... Normal [facility] XR FINGER 2ND RIGHT 2+ VIEWS on 07-10-2023 XR FINGER 2ND RIGHT 2+ VIEWS EXAM: XR FINGER 2ND RIGHT 2+ VIEWS HISTORY: laceration, pain, swelling COMPARISON: None. TECHNIQUE: 3 views of the right index/second finger. FINDINGS: There is soft tissue swelling of second finger centered around the MCP joint. No retained opaque foreign body or gas in the tissues. Normal osseous structures and joints. Adequate bone mineralization. No destructive changes. IMPRESSION: Soft tissue swelling, second finger. No opaque foreign body. Normal [facility] XR Finger second - right Vie wson 07-09-2023 IMPRESSION: Soft tissue swelling, second finger. No opaque foreign body. RADIOLOGY EXAM: XR FINGER 2ND RIGHT 2+ VIEWS HISTORY: laceration, pain, swelling COMPARISON: None. TECHNIQUE: 3 views of the right index/second finger. FINDINGS: There is soft tissue swelling of second finger centered around the MCP joint. No retained opaque foreign body or gas in the tissues. Normal osseous structures and joints. Adequate bone mineralization. No destructive changes. RADIOLOGY Sean Navarro, - 07/09/2023 EXAM: XR FINGER 2ND RIGHT 2+ VIEWS HISTORY: laceration, pain, swelling COMPARISON: None. TECHNIQUE: 3 views of the right index/second finger. FINDINGS: There is soft tissue swelling of second finger centered around the MCP joint. No retained opaque foreign body or gas in the tissues. Normal osseous structures and joints. Adequate bone mineralization. No destructive changes. IMPRESSION IMPRESSION: Soft tissue swelling, second finger. No opaque foreign body. [facility] Radiology Study observation (narrative) [employer] XR Finger second - right Vie wsOrdered By: Sean Navarro on 07-09-2023 [facility] Work Phone: Laceration Repair at the Bed sideOrdered By: Tory Dominique on 07-06-2023 Radiology Study observation (narrative) [facility] Work Phone: Laceration Repair at the Bed sideon 07-05-2023 MINOR Petersen 07/05/2023 11:49 PM Laceration Repair at the Bedside Performed by: MINOR Petersen Authorized by: MINOR Petersen [place] Protocol time out called Additional Notes Area prepped and draped in sterile fashion. Anesthetized with 5 mL 1% lidocaine by local infiltration. Six size 5.0 Ethilon sutures placed to the distal aspect of the laceration. The remaining laceration does not require any additional closure. Patient tolerated well. [facility] Laceration Repair at the Bed sideOrdered By: Tory Dominique on 07-05-2023 [facility] Work Phone: Basic metabolic 2000 panelon 02-19-2022 Anion gap [Moles/Vol] 11 mmol/L 10 - 2 0 mmol/L [facility] Calcium [Mass/Vol] 9.3 mg/dL 8.4 - 10. 2 mg/dL [facility] Chloride [Moles/Vol] 107 mmol/L 98 - 10 8 mmol/L [facility] Creatinine [Mass/Vol] 0.87 mg/dL 0.50 - 1.30 mg/dL [facility] GFR/1.73 sq M.predicted CKD-EPI (S/P/Bld) [Vol rate/Area] 118 - PINF [facility] Comment on above: Estimated GFR was ca lculated using the 2020 CKD-EPI creatinine equation. Glucose [Mass/Vol] 85 mg/dL 65 - 99 mg/dL [facility] HCO3 [Moles/Vol] 29 mmol/L 21 - 32 mmol/L [facility] Interpretation and review of laboratory results Normal [facility] Potassium [Moles/Vol] 3.9 mmol/L 3.5 - 5.1 mmol/L [facility] Sodium [Moles/Vol] 143 mmol/L 135 - 145 mmol/L [facility] Urea nitrogen [Mass/Vol] 11 mg/dL 8 - 25 mg/dL [facility] Urea nitrogen/Creatinine [Mass ratio] 12.6 mg/mg 10.0 - 20.0 [facility] Services has implemented the eGFR calculation approach that does not have a coefficient for race that conforms to the NKF-ASN Task Force Recommendations. [facility] CBC Auto Differentialon Basophils (Bld) [#/Vol] 0.03 10*3/uL [facility] Basophils/100 WBC (Bld) 0.6 % [facility] Eosinophils (Bld) [#/Vol] 0.11 10*3/uL [facility] Eosinophils/100 WBC (Bld) 2.1 % [facility] Erythrocyte distribution width (RBC) [Entitic vol] 12.9 % 11.6 - 14.8 % [facility] Hematocrit (Bld) [Volume fraction] 46.8 % 41.0 - 53.0 % [facility] Hemoglobin (Bld) [Mass/Vol] 15.7 g/dL 13.5 - 17.5 g/dL [facility] Immature granulocytes (Bld) [#/Vol] 0.02 10*3/uL [facility] Immature granulocytes/100 WBC (Bld) 0.40 % [facility] Comment on above: The IG parameter is the percentage of metamyelocytes, myelocytes and promyelocytes. An immature granulocyte count (IG) of 1% or more suggests the possibility of infection, an IG count of 3% is very likely related to an infection. Interpretation and review of laboratory results Abnormal [facility] Lymphocytes (Bld) [#/Vol] 2.22 10*3/uL [facility] Lymphocytes/100 WBC (Bld) 41.8 % [facility] MCH (RBC) [Entitic mass] 30.5 pg 26.0 - 34.0 pg [facility] MCHC (RBC) [Mass/Vol] 33.5 g/dL 31.0 - 37.0 g/dL [facility] MCV (RBC) [Entitic vol] 91.1 fL 80.0 - 100.0 fL [facility] Monocytes (Bld) [#/Vol] 0.55 10*3/uL [facility] Monocytes/100 WBC (Bld) 10.4 % [facility] Neutrophils (Bld) [#/Vol] 2.38 10*3/uL [facility] Neutrophils/100 WBC (Bld) 44.7 % [facility] Nucleated RBC (Bld) [#/Vol] 0.00 10*3/uL [facility] Nucleated RBC/100 WBC (Bld) [Ratio] 0.0 % [facility] Platelet mean volume (Bld) [Entitic vol] 8.6 fL Low 9.4 - 12.4 fL [facility] Platelets (Bld) [#/Vol] 156 10*3/uL [facility] RBC (Bld) [#/Vol] 5.14 10*6/uL [facility] eah WBC (Bld) [#/Vol] 5.31 10*3/uL [facility] eah [facility] Critical Careon 02-19-2022 Aden Ramírez MD 02/19/2022 2:01 PM Critical Care Performed by: Aden Ramírez MD Authorized by: Aden Ramírez MD Total critical care time: 35 minutes Critical care time was exclusive of separately billable procedures and treating other patients. Critical care was necessary to treat or prevent imminent or life-threatening deterioration of the following conditions: trauma. Critical care was time spent personally by me on the following activities: development of treatment plan with patient or surrogate, discussions with consultants, evaluation of patient's response to treatment, examination of patient, obtaining history from patient or surrogate, ordering and performing treatments and interventions, ordering and review of laboratory studies, ordering and review of radiographic studies, pulse oximetry, re-evaluation of patient's condition and review of old charts. [facility] UrinalysisOrdered By: Jenn Reyes on 02-19-2022 Bacteria Auto Ql (U) None Seen None Se en /hpf [facility] Bilirubin Ql (U) Negative Negative [facility] Clarity Refractometry automated (U) Clear Clear [facility] Color (U) Dark Yellow Abnormal Colorless, Yellow [facility] Epithelial cells.squamous Auto (Urine sed) [#/Area] [facility] Glucose Auto test strip (U) [Mass/Vol] Negative Negative mg/dL [facility] Hemoglobin Auto test strip Ql (U) Negative Negative [facility] Interpretation and review of laboratory results Abnormal [facility] Ketones (U) [Mass/Vol] Negative Negat shantal mg/dL [facility] Leukocyte esterase Auto test strip Ql (U) Negative Negative [facility] Mucus Auto (Urine sed) [#/Area] Rare None Seen, Rare /lpf [facility] Nitrite Auto test strip Ql (U) Negative Negative [facility] pH (U) 6.0 [pH] 5.0 - 7.0 [facility] Protein (U) [Mass/Vol] Negative Negat shantal mg/dL [facility] RBC Auto (Urine sed) [#/Area] 1 [facility] Specific gravity (U) [Rel density] 1.024 1.005 - 1.025 [facility] Urobilinogen (U) [Mass/Vol] mg/dL NINF - 2.0 mg/dL [facility] WBC Auto (Urine sed) [#/Area] 2 [facility] Microscopic examination is performed on all urinalysis samples and only positive findings are reported. The test for blood on the chemical analytic portion of urinalysis may also be positive due to hemoglobinuria and myoglobinuria and if red blood cells are present they are quantified by microscopic examination. [facility] LACERATION REPAIRon 05-12-19 Lg Siddiqi MD 05/11/2020 1:51 PM Wound extent: Lac Repair Date/Time: 05/11/2020 1:43 PM Performed by: Lg Siddiqi MD Authorized by: Lg Siddiqi MD Verbal consent: obtained Consent given by: patient Relevant documents: Relevent documents present and verified. Medical history, medications, allergies and physical assessment reviewed/completed Site: site marked by physician or proceduralist who is privileged and credentialed to perform procedure Patient identity confirmed: verbally with patient Time out: Immediately prior to procedure a time out was called to verify the correct patient, procedure, equipment, customer support coordinator and site/side marked as required. All team members agree to proceed: Yes Body area: upper extremity Location details: right index finger Laceration length: 2.5 cm Foreign bodies: no foreign bodies Tendon involvement: superficial Vascular damage: no Anesthesia: local infiltration Anesthesia: Local Anesthetic: lidocaine 1% without epinephrine Anesthetic total: 2 mL Patient sedated: no Repair type: simple Preparation: Patient was prepped and draped in the usual sterile fashion. Irrigation solution: saline Amount of cleaning: standard Hemostasis achieved with: direct pressure Wound exploration: wound explored through full range of motion and entire depth of wound probed and visualized no vascular damage Skin closure: 4-0 ethilon Number of sutures: 4 Technique: simple interrupted Approximation: close Approximation difficulty: simple Dressinx4 sterile gauze and splint Patient tolerance: patient tolerated the procedure well with no immediate complications Comments: Right thumb laceration: 2.5 cm, superficial, no foreign body noted. Repaired with 4-0 Ethilon, 2 simple sutures were placed. Postprocedure hemostasis achieved. Patient tolerated procedure well. Total estimated blood loss minimal. [facility] NOVEL CORONAVIRUS NASOPHARYN GEAL - [facility] SPECIMEN ONLYon 07-02-2019 SARS-COV-2 NOT DETECTED Normal NOT DETECTED [facility] Comment on above: Order Comment: Viral transport media (shredder tender peat with pink fluid) - Collection must be done while wearing N-95 mask, eye protection, gown and gloves. Please label ALL specimens as 2019-nCoV rule out and deliver by hand. This test was performed using real time PCR for the qualitative detection of SARS-CoV-2 nucleic acid. The test has been reviewed by the FDA and given emergency use authorization. This test was developed and its performance characteristics determined by [facility] at [facility]. This test is used for clinical purposes. It should not be regarded as investigational or for research. Result Comment: Nega tive results do not preclude SARS-CoV-2 infection and should not be used as the sole basis for treatment or other patient management decisions. Optimum specimen types and timing for peak viral levels during infections caused by SARS-CoV-2 has not been determined. The possibility of a false negative result should especially be considered if the patient's recent exposures or clinical presentation suggest that SARS-CoV-2 infection is probable, and diagnostic tests for other causes of illness (e.g., other respiratory illness) are negative. Collection of a new specimen and re-testing may be necessary if the patient is critically ill or clinically deteriorating. Performed By: #### L [id number] #### [facility] (DEFAULT) [address] [place] [address] Basic Metabolic Panelon 04- Anion gap [Moles/Vol] 12 mmol/L 9 - 17 mmol/L [place], [place] Bun/Cre Ratio 14 [place] Calcium [Mass/Vol] 9.2 mg/dL 8.6 - 10. 4 mg/dL [place] Chloride [Moles/Vol] 101 mmol/L 98 - 10 7 mmol/L [place] CO2 [Moles/Vol] 27 mmol/L 20 - 31 mmol/L [place] Creatinine [Mass/Vol] 0.83 mg/dL 0.7 - 1.2 mg/dL [place] GFR >60 >60 mL/min [place] GFR Non- >60 >60 mL/min [place] Glucose [Mass/Vol] 97 mg/dL 70 - 99 mg/dL [place], [place] Potassium [Moles/Vol] 4.1 mmol/L 3.7 - 5.3 mmol/L [place] Sodium [Moles/Vol] 140 mmol/L 135 - 144 mmol/L [place] Urea nitrogen [Mass/Vol] 12 mg/dL 6 - 20 mg/dL [place] Basic Metabolic Profon 05-23 (cont.) Normal [facility] Comment on above: Result Comment: Aver age GFR for 30-39 years old: 107 mL/min/1.73sq m Chronic Kidney Disease: <60 mL/min/1.73sq m Kidney failure: <15 mL/min/1.73sq m eGFR calculated using average adult body mass. Additional eGFR calculator available at: http://www.Tuicool.Multigig/multiple_crcl_2012.htm Performed By: #### C JEREMY, BMP #### [facility] [address] [place] [address] Orthopaedic Doctor: Malcom Langley MD Anion gap [Moles/Vol] 12 mmol/L Normal 9-17 [facility] Comment on above: Performed By: #### C JEREMY, BMP #### [facility] [address] [place] [address] Orthopaedic Doctor: Malcom Langley MD BUN/CRE Ratio 14 Normal 9-20 [facility] Comment on above: Performed By: #### C DP, BMP #### [facility] [address] [place], [place] [id number] Orthopaedic Doctor: Malcom Langley MD Calcium [Mass/Vol] 9.2 mg/dL Normal 8.6-10.4 [facility] Comment on above: Performed By: #### C DP, BMP #### [facility] [address] [place], [place] [id number] Orthopaedic Doctor: Malcom Langley MD Chloride [Moles/Vol] 101 mmol/L Normal 98-107 [facility] Comment on above: Performed By: #### C DP, BMP #### [facility] [address] [place], [place] [id number] Orthopaedic Doctor: Malcom Langley MD CO2 [Moles/Vol] 27 mmol/L Normal 20-31 [facility] Comment on above: Performed By: #### C DP, BMP #### [facility] [address] [place], [place] [id number] Orthopaedic Doctor: Malcom Langley MD Creatinine [Mass/Vol] 0.83 mg/dL Normal 0.70-1.20 [facility] Comment on above: Performed By: #### C DP, BMP #### [facility] [address] [place], [place] [id number] Orthopaedic Doctor: Malcom Langley MD GFR, Amer >60 Normal >60 [facility] Comment on above: Performed By: #### C DP, BMP #### [facility] [address] [place] [address] Orthopaedic Doctor: Malcom Langley MD GFR,non Amer >60 Normal >60 [facility] Comment on above: Performed By: #### C DP, BMP #### [facility] [address] [place], [place] [phone] Orthopaedic Doctor: Malcom Langley MD Glucose [Mass/Vol] 97 mg/dL Normal 70-99 [facility] Comment on above: Performed By: #### C DP, BMP #### [facility] [address] [place], [place] [id number] Orthopaedic Doctor: Malcom Langley MD Potassium [Moles/Vol] 4.1 mmol/L Normal 3.7-5.3 [facility] Comment on above: Performed By: #### C DP, BMP #### [facility] [address] [place] [address] Orthopaedic Doctor: Malcom Langley MD Sodium [Moles/Vol] 140 mmol/L Normal 135-144 [facility] Comment on above: Performed By: #### C DP, BMP #### [facility] [address] [place], [place] [phone] Orthopaedic Doctor: Malcom Langley MD Staging: Normal [facility] Comment on above: Result Comment: Stag e 1: Some kidney damage normal GFR Stage 2: Mild kidney damage GFR 60-89 Stage 3: Moderate kidney damage GFR 30-59 Stage 4: Severe kidney damage GFR 15-29 Stage 5: Severe kidney damage GFR <15 ESRD - chronic treatment by dialysis or transplant Performed By: #### C DP, BMP #### [facility] [address] [place] [address] [address], [place] [id number] Orthopaedic Doctor: Malcom Langley MD Urea nitrogen [Mass/Vol] 12 mg/dL Normal 6-20 [facility] Comment on above: Performed By: #### C DP, BMP #### [facility] [address] [place] [address] Orthopaedic Doctor: Malcom Langley MD CBC Auto Differentialon 04-0 Basophils (Bld) [#/Vol] 10*3/uL [facility], [place] Basophils/100 WBC (Bld) 0 % 0 - 2 % [facility] Differential Type NOT REPORTED [place] Eosinophils (Bld) [#/Vol] 10*3/uL [place] Eosinophils/100 WBC (Bld) 0 % Low 1 - 4 % [place] Erythrocyte distribution width (RBC) [Ratio] 12.4 % 11.8 - 14.4 % [place] Hematocrit (Bld) [Volume fraction] 48.3 % 40.7 - 50.3 % [place] Hemoglobin (Bld) [Mass/Vol] 16.3 g/dL 13 - 17 g/dL [place] Immature granulocytes (Bld) [#/Vol] 1 % High 0 [place] Immature granulocytes (Bld) [#/Vol] 0.05 10*3/uL [place] Interpretation and review of laboratory results Abnormal [place] Lymphocytes (Bld) [#/Vol] 1.70 10*3/uL [place] Lymphocytes/100 WBC (Bld) 28 % 24 - 43 % [place] MCH (RBC) [Entitic mass] 30.8 pg 25.2 - 33.5 pg [place] MCHC (RBC) [Mass/Vol] 33.7 g/dL 28.4 - 34.8 g/dL [place] MCV (RBC) [Entitic vol] 91.3 fL 82.6 - 102.9 fL [place] Monocytes (Bld) [#/Vol] 0.47 10*3/uL [place] Monocytes/100 WBC (Bld) 8 % 3 - 12 % [place] Platelet mean volume (Bld) [Entitic vol] 9.2 fL 8.1 - 13.5 fL [place] Platelets (Bld) [#/Vol] NOT REPORTED [place] Platelets (Bld) [#/Vol] 161 10*3/uL [place] RBC (Bld) [#/Vol] 5.29 10*6/uL 4.21 - 5.7 7 m/uL [place] RBC morphology finding Nom (Bld) NOT REPORTED [place] Segmented neutrophils/100 WBC (Bld) 63 % 36 - 65 % [place] Segs Absolute 3.85 [place] WBC (Bld) [#/Vol] 0.0 10*3/uL 0.0 per 10 0 WBC [place] WBC (Bld) [#/Vol] 6.1 10*3/uL [place] WBC Morphology NOT REPORTED [place] CBC with Diffon 05-24-2019 Abs. Basophil <0.03 Normal 0.00-0.20 [facility] Comment on above: Performed By: #### C DP, BMP #### [address] [place] [id number] Orthopaedic Doctor: Malcom Langley MD Abs.Imm.Granulocyte 0.05 k/uL Normal 0.00-0.30 [facility] Comment on above: Performed By: #### C DP, BMP #### [address] [place] [address] Orthopaedic Doctor: Malcom Langley MD Abs.Neutrophil (Seg) 3.85 k/uL Normal 1.50-8.10 [facility] Comment on above: Performed By: #### C DP, BMP #### [address] [place] [address] Orthopaedic Doctor: Malcom Langley MD Basophils/100 WBC (Bld) 0 % Normal 0-2 [facility] Comment on above: Performed By: #### C DP, BMP #### [address] [place] [address] Orthopaedic Doctor: Malcom Langley MD Eosinophils (Bld) [#/Vol] 10*3/uL Normal 0.00-0.44 [facility] Comment on above: Performed By: #### C DP, BMP #### [address] [place] [phone] Orthopaedic Doctor: Malcom Langley MD Eosinophils/100 WBC (Bld) 0 % Low 1-4 [facility] Comment on above: Performed By: #### C DP, BMP #### [facility] [address] [place], [facility]83 Orthopaedic Doctor: Malcom Langley MD Erythrocyte distribution width (RBC) [Ratio] 12.4 % Normal 11.8-14.4 [facility] Comment on above: Performed By: #### C DP, BMP #### [facility] [address] [place], [place] [address] Orthopaedic Doctor: Malcom Langley MD Hematocrit (Bld) [Volume fraction] 48.3 % Normal 40.7-50.3 [facility] Comment on above: Performed By: #### C DP, BMP #### [address] [place], [facility]83 Orthopaedic Doctor: Malcom Langley MD Hemoglobin (Bld) [Mass/Vol] 16.3 g/dL Normal 13.0-17.0 [facility] Comment on above: Performed By: #### C DP, BMP #### [facility] [address] [place], [place] [address] Orthopaedic Doctor: Malcom Langley MD Immature granulocytes (Bld) [#/Vol] 1 % High 0 [facility] Comment on above: Performed By: #### C DP, BMP #### [facility] [address] [place], [facility]83 Orthopaedic Doctor: Malcom Langley MD Lymphocytes (Bld) [#/Vol] 1.70 10*3/uL Normal 1.10-3.70 [facility] Comment on above: Performed By: #### C DP, BMP #### [facility] [address] [place], [facility]83 Orthopaedic Doctor: Malcom Langley MD Lymphocytes/100 WBC (Bld) 28 % Normal 24-43 [facility] Comment on above: Performed By: #### C DP, BMP #### [facility] [address] [place], [facility]83 Orthopaedic Doctor: Malcom Langley MD MCH (RBC) [Entitic mass] 30.8 pg Normal 25.2-33.5 [facility] Comment on above: Performed By: #### C DP, BMP #### [facility] [address] [place] [address] Orthopaedic Doctor: Malcom Langley MD MCHC (RBC) [Mass/Vol] 33.7 g/dL Normal 28.4-34.8 [facility] Comment on above: Performed By: #### C DP, BMP #### [address] [place] [address] Orthopaedic Doctor: Malcom Langley MD MCV (RBC) [Entitic vol] 91.3 fL Normal 82.6-102.9 [facility] Comment on above: Performed By: #### C DP, BMP #### [address] [place] [id number] Orthopaedic Doctor: Malcom Langley MD Monocytes (Bld) [#/Vol] 0.47 10*3/uL Normal 0.10-1.20 [facility] Comment on above: Performed By: #### C DP, BMP #### [address] [place] [address] Orthopaedic Doctor: Malcom Langley MD Monocytes/100 WBC (Bld) 8 % Normal 3-12 [facility] Comment on above: Performed By: #### C DP, BMP #### [facility] [address] [place] [phone] Orthopaedic Doctor: Malcom Langley MD Neutrophil (Seg) 63 % Normal 36-65 [facility] Comment on above: Performed By: #### C DP, BMP #### [facility] [address] [place] [address] Orthopaedic Doctor: Malcom Langley MD NRBC Automated 0.0 per 100 WBC Normal 0.0 [facility] Comment on above: Performed By: #### C DP, BMP #### [facility] [address] [place], [place] [phone] Orthopaedic Doctor: Malcom Langley MD Platelet mean volume (Bld) [Entitic vol] 9.2 fL Normal 8.1-13.5 [facility] Comment on above: Performed By: #### C DP, BMP #### [facility] [address] [place] [address] Orthopaedic Doctor: Malcom Langley MD Platelets (Bld) [#/Vol] 161 10*3/uL Normal 138-453 [facility] Comment on above: Performed By: #### C DP, BMP #### [facility] [address] [place] [address] Orthopaedic Doctor: Malcom Langley MD RBC (Bld) [#/Vol] 5.29 10*6/uL Normal 4.21-5.77 [facility] Comment on above: Performed By: #### C DP, BMP #### [facility] [address] [place] [address] Orthopaedic Doctor: Malcom Langley MD WBC (Bld) [#/Vol] 6.1 10*3/uL Normal 3.5-11.3 [facility] Comment on above: Performed By: #### C DP, BMP #### [facility] [address] [place] [address] Orthopaedic Doctor: Malcom Langley MD Auto Diff Performed NOT REPORTED Normal [facility] Comment on above: Performed By: #### C DP, BMP #### [facility] [address] [place] [address] Orthopaedic Doctor: Malcom Langley MD Platelets (Bld) [#/Vol] NOT REPORTED Normal [facility] Comment on above: Performed By: #### C DP, BMP #### [facility] [address] [place] [address] Orthopaedic Doctor: Malcom Langley MD RBC morphology finding Nom (Bld) NOT REPORTED Normal [facility] Comment on above: Performed By: #### C DP, BMP #### [facility] [address] [place] [address] Orthopaedic Doctor: Malcom Langley MD WBC Morphology NOT REPORTED Normal [facility] Comment on above: Performed By: #### C DP, BMP #### [facility] [address] [place] [address] Orthopaedic Doctor: Malcom Langley MD Flu A/B Ag Detectionon 05-23 Flu A/B Ag Detection Specimen Descriptio n .NASOPHARYNGEAL SWAB Special Requests NOT REPORTED Direct Exam NEGATIVE for Influenza A + B antigens. PCR testing to confirm this result is available upon request. Specimen will be saved in the laboratory for 7 days. Please call [phone] if PCR testing is indicated. Report Status FINAL 05/24/2019 Normal [facility] Comment on above: Performed By: #### F LUAD #### [facility] [address] [place] [address] Orthopaedic Doctor: Malcom Langley MD Metabolic Panelon 05-24-2019 GFR/1.73 sq M predicted among non-blacks MDRD (S/P/Bld) [Vol rate/Area] [facility] [place] [place] Comment on above: Stage 1: Some kidney damage normal GFR Stage 2: Mild kidney damage GFR 60-89 Stage 3: Moderate kidney damage GFR 30-59 Stage 4: Severe kidney damage GFR 15-29 Stage 5: Severe kidney damage GFR <15 ESRD - chronic treatment by dialysis or transplant Average GFR for 30-3 9 years old: 107 mL/min/1.73sq m Chronic Kidney Disease: <60 mL/min/1.73sq m Kidney failure: <15 mL/min/1.73sq m eGFR calculated using average adult body mass. Additional eGFR calculator available at: http://www.Tuicool.com/multiple_crcl_2012.htm Rapid influenza A/B antigens on 05-24-2019 Direct Exam NEGATIVE for Influenza A + B antigens. PCR testing to confirm this result is available upon request. Specimen will be saved in the laboratory for 7 days. Please call [phone] if PCR testing is indicated. [place] Special Requests NOT REPORTED [place] Specimen Description .NASOPHARYNGEAL SWAB [place] Strep Gr A Direct Agon 05-23 Strep Gr A Direct Ag Specimen Descriptio n .THROAT Special Requests NOT REPORTED Direct Exam Rapid Strep A negative. A negative Rapid Group A Strep Screen result does not rule out the possibility of Group A Streptococci in the specimen. A Group A Strep DNA test is available upon request. Report Status FINAL 05/24/2019 Normal [facility] Comment on above: Performed By: #### S GPA #### [facility] [address] [place], [place] [id number] Orthopaedic Doctor: Malcom Langley MD Strep Screen Group A Throato n 05-24-2019 S. pyogenes Ag IA Ql (Unsp spec) Rapid Strep A negative. A negative Rapid Group A Strep Screen result does not rule out the possibility of Group A Streptococci in the specimen. A Group A Strep DNA test is available upon request. [place] Special Requests NOT REPORTED [place] Specimen Description .THROAT [place] XR CHEST 1 VIEWon 05-24-2019 XR CHEST 1 VIEW EXAMINATION: ONE XRAY VIEW OF THE CHEST 05/24/2019 1:01 pm COMPARISON: 09/27/2010. HISTORY: ORDERING SYSTEM PROVIDED HISTORY: Fever TECHNOLOGIST PROVIDED HISTORY: Fever FINDINGS: The heart size is within normal limits. The pulmonary vasculature is also within normal limits. No acute infiltrates are seen. The costophrenic angles are sharp bilaterally. No pneumothoraces are noted.There is deformity of the left clavicle from prior healed fracture. IMPRESSION: 1. No active pulmonary disease. Interpreted by: Brandan Bautista MD Signed by: Brandan Bautista MD 05/24/19 Final result Normal [facility] XR CHEST 1 VWon 05-24-2019 1. No active pulmonary disease. [place] EXAMINATION: ONE XRA Y VIEW OF THE CHEST 05/24/2019 1:01 pm COMPARISON: 09/27/2010. HISTORY: ORDERING SYSTEM PROVIDED HISTORY: Fever TECHNOLOGIST PROVIDED HISTORY: Fever FINDINGS: The heart size is within normal limits. The pulmonary vasculature is also within normal limits. No acute infiltrates are seen. The costophrenic angles are sharp bilaterally. No pneumothoraces are noted.There is deformity of the left clavicle from prior healed fracture. [facility] [place] Mike, [facility] Incoming Radiant Results From [facility] - 05/24/2019 1:08 PM EDT EXAMINATION: ONE XRAY VIEW OF THE CHEST 05/24/2019 1:01 pm COMPARISON: 09/27/2010. HISTORY: ORDERING SYSTEM PROVIDED HISTORY: Fever TECHNOLOGIST PROVIDED HISTORY: Fever FINDINGS: The heart size is within normal limits. The pulmonary vasculature is also within normal limits. No acute infiltrates are seen. The costophrenic angles are sharp bilaterally. No pneumothoraces are noted.There is deformity of the left clavicle from prior healed fracture. IMPRESSION: 1. No active pulmonary disease. [facility] - [facility] v2on 03-0 Protein mass conc Provider Note - ED v2: Chart Review: ED NOTES ED NOTES: HPI: 28-year-old male with no prior medical history presents complaining of laceration on right hand approximately 3 hours prior to arrival. 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 He did not take anything for pain, states he had a tetanus shot last year, states he is right-handed. He applied a towel around the laceration and obtained adequate hemostasis. States the laceration is painful, Denies any other symptoms. ROS: CONS: no fever, no chills SKIN: no new rashes NEURO: no headache; no LOC, no paresthesias ENMT: no congestion; no sore throat EYES: no vision changes CV: no chest pain, no palpitations PULM: no dyspnea; no cough GI: no abdominal pain; no nausea or vomiting : no dysuria MSK: no new myalgias or arthralgias PMH: Reviewed, please see EMR, pertinents in HPI PSH: Reviewed, please see EMR Medications: Reviewed, please see EMR Allergies: Reviewed, please see EMR Social: [Non-contributory] Physical Exam: GENERAL.: Vitals noted. No distress. Normocephalic atraumatic. EYES: PERRLA, EOMs intact, anicteric sclera OROPHARYNX: No erythema or exudate. Mucosa moist. NECK: Supple. No adenopathy. CARDIAC: Regular rate rhythm. No murmur noted. PULMONARY: Equal breath sounds bilaterally. No wheezes rales or rhonchi ABDOMEN: Soft, nontender, nonsurgical. No guarding. Normoactive bowel sounds. No bruits, no masses EXTREMITIES: Full ROM, no pitting edema, SKIN: Right hand thenar eminence 4 cm laceration posterior aspect, partial thickness NEURO: Alert and oriented x 3, speech is clear, no obvious deficits noted. This note was dictated using a speech recognition program. While an attempt was made at proof reading to minimize errors, minor errors in java engineer may be present and all discrepancies are deferred to the EMR. HISTORY OF PRESENTING ILLNESS MIKAYLA is a 28 year old Male and was seen by me at 20-Apr-2018 17:15 for a chief complaint of lacerations . Triage Information: Most recent Vital Sign Value Date Temp (F): 98.4 04-20-2018 17:05 Temp (C): 36.9 04-20-2018 17:05 Heart Rate (beats/min): 101 04-20-2018 17:05 Respirations (breaths/min): 18 04-20-2018 17:05 SpO2 (%): 100 04-20-2018 17:05 BP Systolic (mm Hg): 129 04-20-2018 17:05 BP Diastolic (mm Hg): 83 04-20-2018 17:05 PAST MEDICAL HISTORY ATTESTATION: I have reviewed and confirmed nurse's/medic's notes for patient's medications, allergies, medical history, and surgical history ALLERGIES/INTOLERANCE S: No Known Allergies HEALTH HISTORY: No documented data. OUTPATIENT MEDICATIONS: Home Medications Review Status for Reconciliation: N/A Med Status: N/A No documented data. SIGNIFICANT EVENTS: No documented data. MEDICAL DECISION MAKING/ED COURSE MDM/ED COURSE: 28-year-old male with laceration on carpet knife on posterior right thenar eminence. He stated he is up-to-date on his tetanus vaccine, he was states is obtained with Tylenol with minimal blood loss. Laceration appeared clean with no foreign bodies, approximately 5 cm linear, partial thickness. 1 Percocet given for pain relief prior to procedure See procedure section for laceration repair, bacitracin applied post repair, he is provided with one package of bacitracin as well as Kerlix, wound care instructions given, told to stay in place for 7-10 days and presents to urgent care, [facility], minor care provider, or emergency department for suture removal, signs and symptoms of infection educated about and told to return for any present. Verbalized understanding this plan and agrees to plan, PROCEDURE LACERATION REPAIR Procedure Location: bedside Pre-procedure Verification: completed Time Out - Final Verification: completed Procedure performed by: me Legal Advisor(s): none Findings: grossly normal anatomy Specimen: no Estimated Blood Loss (mL): (<5cc) Post-Procedure Diagnosis: laceration repaired The patient presents with a cm long partial thickness and linear laceration of the right, posterior and hand. The area was draped and prepped per protocol. Localanesthesia was achieved with 1% lidocaine and with epinephrine. The wound was irrigated, the area was explored in a bloodless field, 1L NS was used to irrigate the wound. There were no foreign bodies seen. There was no injury to the tendon(s). Closure was achieved with 6 4-0 interrupted nylon sutures in the skin Complications: There were no complications associated with the procedure CLINICAL IMPRESSION Diagnosis/Annotation: ED Dx Name:Laceration of hand, right Code:S61.411A Dispostion: discharged Type: home Condition on Disposition: improved ATTESTATION Attestation: This is a shared visit. I have reviewed the LIPs encounter note, approve the LIPs documentation and provide the following additional information from my personal encounter. Shared Visit Documentation: See comments/additional findings below Comments/Additional Findings: This patient was seen by the advanced practice provider. I have seen and examined the patient, agree with the workup, evaluation, management and diagnosis. The care plan has been discussed. My assessment reveals 28-year-old male who cut his hand while doing carpeting. He had a tetanus shot last year. He will get sutures he does not have any evidence of tendon laceration on my examination, he has a laceration over his right thenar eminence. CRITICAL CARE TIME Is this a critically ill patient: no Electronic Signatures: Agustin Miller (PAC) (Signed 20-Apr-2018 18:36) Authored: Provider Note - ED v2 Austyn White) (Signed 24-Apr-2018 20:55) Authored: Provider Note - ED v2 Co-Signer: Provider Note - ED v2 Last Updated: 24-Apr-2018 20:55 by Austyn White) References: 1. Data Referenced From Triage - ED 04/20/2018 5:05 PM Normal [facility] Triage - EDon 04-20-2018 Triage - ED Chart Review: CHIEF COMPLAINT MIKAYLA SOTELO is a Male patient with a chief complaint of lacerations. Triage Date/Time: 20-Apr-2018 17:05 Pain Rating (0-10): Activity: 8 Pain location: right hand Vital Signs: Temperature: 98.4F ( 36.9C) taken forehead Blood Pressure: 129/83 Mean: Heart Rate: 101 Respiratory Rate: 18 Pulse Oximetry: 100% on room air, no respiratory support. Height: 6 feet 1.00 inches. 185.4 CM Weight: 150.0 pounds. Calculated 68.0 kg. (stated) Calculated BMI (kg/m2): 19.782 Calculated BSA (m2) 1.87 Cough lasting greater than 3 weeks: no Travel outside of [place]: no Allergies: no Patient has homicidal thoughts: no ROHAN: 3V Symptoms Are POSITIVE For: laceration. Symptoms Are Negative For: abrasion, avulsion, bleeding, bruising, fever, lump, redness, swelling and discharge. [place] Suicide Suicide Risk Screen In the Past Month: Have you wished you were or wished you could go to sleep and not wake up no In the Past Month: Have you had any actual thoughts of killing yourself no In Your Lifetime: Have you ever done anything, started to do anything, or prepared to do anything to end your life no PAIN Pain Scale Used: BRANDY Past Medical History: Past Medical History Reviewedyes Electronic Signatures: Lucy Cedeño (RN) (Signed 20-Apr-2018 17:08) Authored: Triage, Past Medical History Last Updated: 20-Apr-2018 17:08 by Lucy Cedeño (RN) Normal [facility] Vital Signs Date Time Vital Sign Value Performing Clinician Faci [facility] 03-13-2024 07:44-0500 Diastolic blood pressure 80 mm[Hg] Melody Chou MD Work Phone: [facility] 03-13-2024 07:44-0500 Heart rate 78 /min Melody Chou MD Work Phone: [facility] 03-13-2024 07:44-0500 Respiratory rate 16 /min Melody Chou MD Work Phone: [facility] 03-13-2024 07:44-0500 SaO2% (BldA) [Mass fraction] 97 % Melody Chou MD Work Phone: [facility] 03-13-2024 07:44-0500 Systolic blood pressure 124 mm[Hg] Melody Chou MD Work Phone: [facility] 03-11-2024 22:48-0500 Body temperature 97.9 [degF] Melody Chou MD Work Phone: [facility] 02-01-2024 13:21-0500 Body temperature 98.29 [degF] CJ Hassmann DPM Work Phone: [facility] 02-01-2024 13:21-0500 Diastolic blood pressure 80 mm[Hg] CJ Hassmann DPM Work Phone: [facility] 02-01-2024 13:21-0500 Heart rate 104 /min CJ Hassmann DPM Work Phone: [facility] 02-01-2024 13:21-0500 Systolic blood pressure 137 mm[Hg] CJ Hassmann DPM Work Phone: [facility] 07-13-2023 14:33-0400 Body height 185.4 cm Linda Bonds MD Work Phone: [facility] 07-13-2023 14:33-0400 Body mass index (BMI) [Ratio] 17.6 kg/m2 Linda Bonds MD Work Phone: [facility] 07-13-2023 14:33-0400 Body temperature 97.9 [degF] Linda Bonds MD Work Phone: [facility] 07-13-2023 14:33-0400 Body weight 60.5 kg Linda Bonds MD Work Phone: [facility] 07-09-2023 22:00-0400 Diastolic blood pressure 78 mm[Hg] Miguel A Whitehead BEAMING MACHINE OPERATOR-PEDIATRIC PHYSICIAN Work Phone: [facility] 07-09-2023 22:00-0400 Heart rate 102 /min Miguel A Whitehead BEAMING MACHINE OPERATOR-PEDIATRIC PHYSICIAN Work Phone: [facility] 07-09-2023 22:00-0400 Respiratory rate 18 /min Miguel A Whitehead BEAMING MACHINE OPERATOR-PEDIATRIC PHYSICIAN Work Phone: [facility] 07-09-2023 22:00-0400 SaO2% (BldA) [Mass fraction] 99 % Miguel A Whitehead BEAMING MACHINE OPERATOR-PEDIATRIC PHYSICIAN Work Phone: [facility] 07-09-2023 22:00-0400 Systolic blood pressure 142 mm[Hg] Miguel A Whitehead BEAMING MACHINE OPERATOR-PEDIATRIC PHYSICIAN Work Phone: [facility] 07-09-2023 20:03-0400 Body height 185.4 cm Miguel A Whitehead BEAMING MACHINE OPERATOR-PEDIATRIC PHYSICIAN Work Phone: [facility] 07-05-2023 22:19-0400 Diastolic blood pressure 75 mm[Hg] Miguel A Whitehead BEAMING MACHINE OPERATOR-PEDIATRIC PHYSICIAN Work Phone: [facility] 07-05-2023 22:19-0400 Heart rate 98 /min Miguel A Whitehead BEAMING MACHINE OPERATOR-PEDIATRIC PHYSICIAN Work Phone: [facility] 07-05-2023 22:19-0400 Respiratory rate 18 /min Miguel A Whitehead BEAMING MACHINE OPERATOR-PEDIATRIC PHYSICIAN Work Phone: [facility] 07-05-2023 22:19-0400 SaO2% (BldA) [Mass fraction] 98 % Miguel A Whitehead BEAMING MACHINE OPERATOR-PEDIATRIC PHYSICIAN Work Phone: [facility] 07-05-2023 22:19-0400 Systolic blood pressure 125 mm[Hg] Miguel A Whitehead BEAMING MACHINE OPERATOR-PEDIATRIC PHYSICIAN Work Phone: [facility] 07-05-2023 20:42-0400 Body mass index (BMI) [Ratio] 19.79 kg/m2 Miguel A Whitehead BEAMING MACHINE OPERATOR-PEDIATRIC PHYSICIAN Work Phone: [facility] 07-05-2023 20:42-0400 Body weight 68.04 kg Miguel A Whitehead BEAMING MACHINE OPERATOR-PEDIATRIC PHYSICIAN Work Phone: [facility] 07-05-2023 20:41-0400 Body temperature 98.01 [degF] Miguel A Whitehead BEAMING MACHINE OPERATOR-PEDIATRIC PHYSICIAN Work Phone: [facility] 02-19-2022 14:47-0500 Diastolic blood pressure 94 mm[Hg] Aden Ramírez MD Work Phone: [facility] 02-19-2022 14:47-0500 Heart rate 108 /min Aden Ramírez MD Work Phone: [facility] 02-19-2022 14:47-0500 Respiratory rate 18 /min Aden Ramírez MD Work Phone: [facility] 02-19-2022 14:47-0500 SaO2% (BldA) [Mass fraction] 100 % Aden Ramírez MD Work Phone: [facility] 02-19-2022 14:47-0500 Systolic blood pressure 157 mm[Hg] Aden Ramírez MD Work Phone: [facility] 02-19-2022 10:47-0500 Body height 185.4 cm Aden Ramírez MD Work Phone: [facility] 02-19-2022 10:47-0500 Body mass index (BMI) [Ratio] 20.45 kg/m2 Aden Ramírez MD Work Phone: [facility] 02-19-2022 10:47-0500 Body weight 70.31 kg Aden Ramírez MD Work Phone: [facility] 02-19-2022 10:25-0500 Body temperature 97.59 [degF] Aden Ramírez MD Work Phone: [facility] 05-11-2020 13:16-0400 Body Temperature 97.81 [degF] Lg Siddiqi [facility] 05-11-2020 13:16-0400 BP Diastolic 93 mm[Hg] Lg Siddiqi [facility] 05-11-2020 13:16-0400 BP Systolic 149 mm[Hg] Lg Siddiqi [facility] 05-11-2020 13:16-0400 Pulse (Heart Rate) 99 /min Lg Siddiqi [facility] 05-11-2020 13:16-0400 Pulse Oximetry 99 % Lg Siddiqi [facility] 05-11-2020 13:16-0400 Respiratory Rate 16 /min Lg Siddiqi [facility] 05-24-2019 14:00-0400 BP Diastolic 70 mm[Hg] Tory TannerDrug Response Dx [facility], [place] 05-24-2019 14:00-0400 BP Systolic 106 mm[Hg] Tory DumontIstpika [facility] [place], [place] 05-24-2019 14:00-0400 Pulse (Heart Rate) 66 /min Tory Berkowitz [facility] [place], [place] 05-24-2019 12:03-0400 Body Temperature 97.5 [degF] Tory Tannerpatrick [employer] [facility] [place], [place] 05-24-2019 12:03-0400 Body weight 68.04 kg oTry TannerDrug Response Dx [facility], [place] 05-24-2019 12:03-0400 Pulse Oximetry 99 % Tory DumontIstpika [facility], [place] 05-24-2019 12:03-0400 Respiratory Rate 16 /min Tory Berkowitz [facility], [place] Encounters Encounter Date Encounter Type Care Provider Facility Start: 12-04-2024 End: 12-04-2024 Emergency department patient visit MIGUEL A WHITEHEAD [facility] Start: 08-25-2024 End: 08-25-2024 Emergency department patient visit MIGUEL A WHITEHEAD [facility] Start: 06-10-2024 End: 06-10-2024 Emergency department patient visit MARC CONNELLY [facility] Start: 03-11-2024 End: 03-13-2024 ambulatory MELODY CHRISTINA [facility] Start: 03-11-2024 End: 03-13-2024 Emergency department patient visit Dano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 Vital signs are stable. Patient is afebrile. History and physical exam ED workup including labs, Tylenol and aspirin level, urine drug screen and CT of the head and neck were obtained. CBC without leukocytosis. Hemoglobin is high at 18.2. Chem-7 without significant electrolyte derangement. Tylenol and aspirin levels are normal. Alcohol level normal. Urine drug screen positive for methamphetamine and marijuana. CTA of the head and neck showed Normal noncontrast CT of the head. Normal CT angiogram of the brain. No acute carotid vertebral artery dissection. No significant carotid or vertebral artery stenosis. No acute cervical spine fracture. Patient medically cleared for social work evaluation. At this time patient will endorsed to next ED provider as it is inclusion of my shift pending social work evaluation for final recommendations for disposition. ED Course as of 03/11/242119 Sun Mar 11, [id number] Spoke with [facility]. She advises that Dr. Schwartz his excepted the patient. Admitting diagnosis is major depression. Admission orders have been placed at this time. [AL] 184 Patient requesting Tylenol for headache. I have placed orders for the Tylenol for his pain relief. [AL] 2035 COVID-19/Influenza A,B Molecular(!) COVID-positive [AL] 2118 Spoke with [facility] [place] being COVID-positive. Advised him that he was excepted for major depression by Dr. Schwartz. [facility] advises he will place admission orders. He also reports that the patient will likely stay in the ER due to no beds and no sitter. [AL] ED Course User Index [AL] Jonathan Britton CNP I did personally review Mikayla's past medical history, surgical history, social history, as well as family history (when relevant). In this case, I also oversaw the his drug management by reviewing his medication list, allergy list, as well as the medications that I prescribed during the ED course and/or recommended as an out-patient (including possible OTC medications such as acetaminophen, NSAIDs , etc). 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 Injury of penile urethra 02/19/2022 Resolved Ambulatory Problems Diagnosis Date Noted No Resolved Ambulatory Problems Past Medical History: Diagnosis Date Hepatitis C Herpes genitalis in men ED MEDICATIONS GIVEN: Medications sodium chloride (PF) (NS) 0.9 % contrast line flush 10 mL (10 mL Intravenous Given 03/11/24 164) And sodium chloride (PF) (NS) 0.9 % contrast line flush 80 mL (80 mL Intravenous Given 03/11/24 164) iopamidoL (ISOVUE-370) 370 mg iodine /mL (76 %) injection 75 mL (75 mL Intravenous Contrast Administered 03/11/241641) After reviewing the items above, I did look at previous medical documentation, such as recent hospitalizations, office visits, and/or recent consultations with PCP/specialist. SDOH: Another factor that I considered in Mikayla's care was his Social Determinants of Health (SDOH). During this ED encounter, he did NOT appear to have any significant issues identified. On this particular ED encounter, I did utilize shared decision making. Clinical Impression: 1. Suicidal ideation 2. Abrasion of neck, initial encounter 3. Depression, unspecified depression type Disposition: ED Disposition None Luda Pandya CNP, CNP ED Advanced Practice Provider [facility] EMERGENCY DEPARTMENT (Please note that portions of this note have been completed with a voice recognition software. Efforts were made to correct any errors, but occasionally words are mis-transcribed.) Luda Pandya CNP 03/11/24 4691 PATIENT PRESENTS TO THE ED FROM HOME WITH [place] AFTER BEING FOUND IN HIS GARAGE AFTER A POSSIBLE HANGING. PATIENT DENIES ANY SUICIDAL THOUGHTS. documented in this encounter [facility] 03-13-2024 Emergency department Note Pt frustrated. Asking for an update. Updated on plan of care. Educated on pink slip [facility] 03-13-2024 Emergency department Note Pt at nurses station talking on phone. [facility] 03-13-2024 Emergency department Note Breakfast given [facility] 03-13-2024 Emergency department Note Pt taken to shower with security and psa. Now watching tv. Breakfast ordered [facility] 03-13-2024 Emergency department Note Resting in room watching tv. Calm and cooperative [facility] 03-12-2024 Emergency department Note Rounding Assessment: Activity - Resting in bed. CardioRespir - Spontaneous, equal chest rise. Respirs unlabored. Skin - Warm and Dry. Needs/Concerns - Updated on POC. Denies any further needs at this time. Safety - No AMA gown intact. Bed in fixed, low position. Continuous monitoring in place. [facility] 03-12-2024 Emergency department Note Rounding Assessment: Activity - Resting in bed. CardioRespir - Spontaneous, equal chest rise. Respirs unlabored. Skin - Warm and Dry. Needs/Concerns - Updated on POC. Denies any further needs at this time. Safety - No AMA gown intact. Bed in fixed, low position. Continuous monitoring in place. [facility] 03-12-2024 Emergency department Note Rounding Assessment: Activity - Resting in bed. CardioRespir - Spontaneous, equal chest rise. Respirs unlabored. Skin - Warm and Dry. Needs/Concerns - Updated on POC. Denies any further needs at this time. Safety - No AMA gown intact. Bed in fixed, low position. Continuous monitoring in place. [facility] 03-12-2024 Emergency department Note Rounding Assessment: Activity - Resting in bed. CardioRespir - Spontaneous, equal chest rise. Respirs unlabored. Skin - Warm and Dry. Needs/Concerns - Updated on POC. Denies any further needs at this time. Safety - No AMA gown intact. Bed in fixed, low position. Continuous monitoring in place. [facility] 03-12-2024 Note HMS PROGRESS NOTE Assessment and Plan Mikayla Sotelo is a 33 y.o. male patient of Miguel A Whitehead CNP with history of hepatitis C and history of drug abuse presented to [facility] on 03/11/2024 with suicidal thoughts. Assessment and plan Suicidal Thoughts, pink slipped Suicidal ideation Consult psychiatry Continue suicide precaution COVID-19 infection Patient tested positive for COVID-19 Patient declined chest x-ray Patient currently on room air Does not qualify for any treatment at this time COVID isolation protocol Patient can be taken out of isolation 03/21 Code Status: Full Code Disposition Medically stable for discharge date: 03.12 Patient requires continued hospitalization due to: awaiting psych eval Discharge location: D Quality Measures DVT prophylaxis: Lovenox Cr catheter: absent Subjective No acute events noted overnight. Afebrile. Saturating well on room air. Reports some aches, chills. Wants to go home. Review of Systems All relevant systems have been reviewed and are negative except as noted in HPI or below Objective BP 125/81 (BP Location: Left arm, Patient Position: Sitting) Pulse 79 Temp 97.9 degrees F (36.6 degrees C) (Oral) Resp 16 SpO2 97% Physical Examination General Appearance: alert; well appearing; in no acute distress HEENT: Head- normocephalic; Eyes- EOMI, sclera anicteric; Ears- hearing intact; Nose- no nasal discharge; Throat- mucous membranes moist Cardiovascular: regular rate and rhythm Respiratory: lungs clear to auscultation; without wheezes, rales or rhonchi; on room air Neurological: oriented x 3; normal speech; no focal findings or movement disorder noted Musculoskeletal: no significant deformity or tenderness to palpation Skin: normal coloration; no obvious rashes, lesions or skin breakdown Psych: normal mood and affect Results/Medications Reviewed 03/12/2024 12:04 PM Laboratory, Microbiology, Radiology, Cardiology, Medications, and Transcriptions AUTHENTICATED BY JASMINE CASEY ON 03/12/2024 12:06:33 [facility] 03-12-2024 History of Presen t illness Narrative [facility] [place] Assessment and Plan Mikayla Sotelo is a 33 y.o. male patient of Miguel A Whitehead CNP with history of hepatitis C and history of drug abuse presented to [facility] on 03/11/2024 with suicidal thoughts. Assessment and plan Suicidal Thoughts, pink slipped Suicidal ideation Consult psychiatry Continue suicide precaution COVID-19 infection Patient tested positive for COVID-19 Patient declined chest x-ray Patient currently on room air Does not qualify for any treatment at this time COVID isolation protocol Patient can be taken out of isolation 03/21 Code Status: Full Code Disposition Medically stable for discharge date: 03.12 Patient requires continued hospitalization due to: awaiting psych eval Discharge location: D Quality Measures DVT prophylaxis: Lovenox Cr catheter: absent Subjective No acute events noted overnight. Afebrile. Saturating well on room air. Reports some aches, chills. Wants to go home. Review of Systems All relevant systems have been reviewed and are negative except as noted in HPI or below Objective BP 125/81 (BP Location: Left arm, Patient Position: Sitting) Pulse 79 Temp 97.9 F (36.6 C) (Oral) Resp 16 SpO2 97% Physical Examination General Appearance: alert; well appearing; in no acute distress HEENT: Head- normocephalic; Eyes- EOMI, sclera anicteric; Ears- hearing intact; Nose- no nasal discharge; Throat- mucous membranes moist Cardiovascular: regular rate and rhythm Respiratory: lungs clear to auscultation; without wheezes, rales or rhonchi; on room air Neurological: oriented x 3; normal speech; no focal findings or movement disorder noted Musculoskeletal: no significant deformity or tenderness to palpation Skin: normal coloration; no obvious rashes, lesions or skin breakdown Psych: normal mood and affect Results/Medications Reviewed 03/12/2024 12:04 PM Laboratory, Microbiology, Radiology, Cardiology, Medications, and Transcriptions documented in this encounter [facility] 03-12-2024 Emergency department Note Breakfast tray delivered to patient. [facility] 03-12-2024 Emergency department Note This PSA ordered patient breakfast. [facility] 03-12-2024 Emergency department Note Pt ambulatory to RR with steady gait. [facility] 03-12-2024 Emergency department Note Rounding: ABCs intact, no c/o. ACTIVITY: Pt resting quietly on cart; patent airway. Spontaneous breathing w/ regular respirations. NEEDS/CONCERNS- none voiced, SAFETY: cart in low position, call light within reach. Pt remains in blue gown with continuous video/sitter monitoring in place for pt safety. No HI/SI attempts, nonviolent at present. [facility] 03-11-2024 Emergency department Note robotic technician to room for CXR. Pt refusing CXR. [facility] 03-11-2024 History and physical note [facility] [place] [facility] [place]ICAL -- [facility] Patient Name: Mikayla Sotelo : 1990 MR #: [id number] Admit Date: 03/11/2024 Physicians: Miguel A Whitehead CNP (Family); No ref. provider found (Referring) Mikayla Sotelo is a 33 y.o. male patient of Miguel A Whitehead CNP with history of hepatitis C and history of drug abuse presented to [facility] on 03/11/2024 with suicidal thoughts. Assessment and plan Suicidal Thoughts, pink slipped Suicidal ideation Consult psychiatry Continue suicide precaution COVID-19 infection Patient tested positive for COVID-19 Patient declined chest x-ray Patient currently on room air Does not qualify for any treatment at this time COVID isolation protocol Patient can be taken out of isolation 2/5 Residence prior to admission: house or apartment Was patient transferred from outlying hospital or ED no Quality Measures DVT Prophylaxis: lovenox Cr Catheter: absent Medication Reconciliation: Verified Admitted with these risk variables:None. Please see assessment and plan for further details. Estimated Date of Discharge less than 2 midnights Code Status Full Code; code status verified on 03/11/2024 with patient (capacity intact) Chief Complaint suicidal thoughts History of Present Illness Mikayla Sotelo is a 33 y.o. male patient of Miguel A Whitehead CNP with history of hepatitis C and history of drug abuse presented to [facility] on 03/11/2024 with suicidal thoughts. Patient presents to the emergency department via pink slip from [place] [facility] Department after he was found in his garage after possible hanging attempt. Patient states he was kicked out of his house due to his drug use history. He was very upset and states he is trying to create some cuts on the side of his neck to get his girlfriend's attention. Patient admits using methamphetamine and marijuana. Patient denies any chest pain or shortness of breath. Patient denies any sick contacts. Patient denies any abdominal pain nausea or vomiting. Patient reports he has been eating and drinking well. Patient denies any blood in his urine or stool Past Medical History Past Medical History: Diagnosis Date Hepatitis C Herpes genitalis in men Past Surgical History History reviewed. No pertinent surgical history. Family History Family History Problem Relation Age of Onset Diabetes Father Diabetes Maternal Aunt Diabetes Maternal Grandmother Diabetes Paternal Grandmother Social History Social History Tobacco Use Smoking Status Every Day Current packs/day: 0.50 Types: Cigarettes Smokeless Tobacco Never Social History Substance and Sexual Activity Alcohol Use Not Currently Social History Substance and Sexual Activity Drug Use Yes Types: Marijuana Comment: occasionally Allergy Information I have reviewed the patient's allergies. Patient has no known allergies. Home Medications Home medications were reviewed. Review Of Systems All relevant systems have been reviewed and are negative except as noted in HPI or below Physical Examination BP (!) 139/96 Pulse (!) 100 Temp 98 F (36.7 C) Resp 16 SpO2 98% General Appearance: alert; acutely ill appearing; in no acute distress HEENT: Head- normocephalic; Eyes- EOMI, sclera anicteric; Throat- mucous membranes moist Cardiovascular: regular rate and rhythm; normal S1, S2; no murmurs, rubs, clicks or gallops; peripheral edema absent Respiratory: lungs clear to auscultation; without wheezes, rales or rhonchi; on room air Abdomen: soft, non-tender, non-distended Neurological: oriented x 3; normal speech; no focal findings or movement disorder noted Musculoskeletal: no significant deformity or tenderness to palpation Skin: normal coloration Psych: normal mood and affect [facility] 03-11-2024 Note HMS HISTORY AND PHYS ICAL -- [facility] Patient Name: Mikayla Sotelo : 1990 MR #: [id number] Admit Date: 03/11/2024 Physicians: Miguel A Whitehead CNP (Family); No ref. provider found (Referring) Mikayla Sotelo is a 33 y.o. male patient of Miguel A Whitehead CNP with history of hepatitis C and history of drug abuse presented to [facility] on 03/11/2024 with suicidal thoughts. Assessment and plan Suicidal Thoughts, pink slipped Suicidal ideation Consult psychiatry Continue suicide precaution COVID-19 infection Patient tested positive for COVID-19 Patient declined chest x-ray Patient currently on room air Does not qualify for any treatment at this time COVID isolation protocol Patient can be taken out of isolation 2/5 Residence prior to admission: house or apartment Was patient transferred from outlying hospital or ED no Quality Measures DVT Prophylaxis: lovenox Cr Catheter: absent Medication Reconciliation: Verified Admitted with these risk variables:None. Please see assessment and plan for further details. Estimated Date of Discharge less than 2 midnights Code Status Full Code; code status verified on 03/11/2024 with patient (capacity intact) Chief Complaint suicidal thoughts History of Present Illness Mikayla Sotelo is a 33 y.o. male patient of Miguel A Whitehead CNP with history of hepatitis C and history of drug abuse presented to [facility] on 03/11/2024 with suicidal thoughts. Patient presents to the emergency department via pink slip from [place] [employer] after he was found in his garage after possible hanging attempt. Patient states he was kicked out of his house due to his drug use history. He was very upset and states he is trying to create some cuts on the side of his neck to get his girlfriend's attention. Patient admits using methamphetamine and marijuana. Patient denies any chest pain or shortness of breath. Patient denies any sick contacts. Patient denies any abdominal pain nausea or vomiting. Patient reports he has been eating and drinking well. Patient denies any blood in his urine or stool Past Medical History Past Medical History: Diagnosis Date Hepatitis C Herpes genitalis in men Past Surgical History History reviewed. No pertinent surgical history. Family History Family History Problem Relation Age of Onset Diabetes Father Diabetes Maternal Aunt Diabetes Maternal Grandmother Diabetes Paternal Grandmother Social History Social History Tobacco Use Smoking Status Every Day Current packs/day: 0.50 Types: Cigarettes Smokeless Tobacco Never Social History Substance and Sexual Activity Alcohol Use Not Currently Social History Substance and Sexual Activity Drug Use Yes Types: Marijuana Comment: occasionally Allergy Information I have reviewed the patient's allergies. Patient has no known allergies. Home Medications Home medications were reviewed. Review Of Systems All relevant systems have been reviewed and are negative except as noted in HPI or below Physical Examination BP (!) 139/96 Pulse (!) 100 Temp 98 degrees F (36.7 degrees C) Resp 16 SpO2 98% General Appearance: alert; acutely ill appearing; in no acute distress HEENT: Head- normocephalic; Eyes- EOMI, sclera anicteric; Throat- mucous membranes moist Cardiovascular: regular rate and rhythm; normal S1, S2; no murmurs, rubs, clicks or gallops; peripheral edema absent Respiratory: lungs clear to auscultation; without wheezes, rales or rhonchi; on room air Abdomen: soft, non-tender, non-distended Neurological: oriented x 3; normal speech; no focal findings or movement disorder noted Musculoskeletal: no significant deformity or tenderness to palpation Skin: normal coloration Psych: normal mood and affect AUTHENTICATED BY CHANEL ROGERS ON 03/11/2024 22:58:01 [facility] 03-11-2024 History and physical note [facility] [place] -- [facility] Patient Name: Mikayla Sotelo : 1990 MR #: [id number] Admit Date: 03/11/2024 Physicians: Miguel A Whitehead CNP (Family); No ref. provider found (Referring) Mikayla Sotelo is a 33 y.o. male patient of Miguel A Whitehead CNP with history of hepatitis C and history of drug abuse presented to [facility] on 03/11/2024 with suicidal thoughts. Assessment and plan Suicidal Thoughts, pink slipped Suicidal ideation Consult psychiatry Continue suicide precaution COVID-19 infection Patient tested positive for COVID-19 Patient declined chest x-ray Patient currently on room air Does not qualify for any treatment at this time COVID isolation protocol Patient can be taken out of isolation 2/5 Residence prior to admission: house or apartment Was patient transferred from outlying hospital or ED no Quality Measures DVT Prophylaxis: lovenox Cr Catheter: absent Medication Reconciliation: Verified Admitted with these risk variables:None. Please see assessment and plan for further details. Estimated Date of Discharge less than 2 midnights Code Status Full Code; code status verified on 03/11/2024 with patient (capacity intact) Chief Complaint suicidal thoughts History of Present Illness Mikayla Sotelo is a 33 y.o. male patient of Miguel A Whitehead CNP with history of hepatitis C and history of drug abuse presented to [facility] on 03/11/2024 with suicidal thoughts. Patient presents to the emergency department via pink slip from [facility] after he was found in his garage after possible hanging attempt. Patient states he was kicked out of his house due to his drug use history. He was very upset and states he is trying to create some cuts on the side of his neck to get his girlfriend's attention. Patient admits using methamphetamine and marijuana. Patient denies any chest pain or shortness of breath. Patient denies any sick contacts. Patient denies any abdominal pain nausea or vomiting. Patient reports he has been eating and drinking well. Patient denies any blood in his urine or stool Past Medical History Past Medical History: Diagnosis Date Hepatitis C Herpes genitalis in men Past Surgical History History reviewed. No pertinent surgical history. Family History Family History Problem Relation Age of Onset Diabetes Father Diabetes Maternal Aunt Diabetes Maternal Grandmother Diabetes Paternal Grandmother Social History Social History Tobacco Use Smoking Status Every Day Current packs/day: 0.50 Types: Cigarettes Smokeless Tobacco Never Social History Substance and Sexual Activity Alcohol Use Not Currently Social History Substance and Sexual Activity Drug Use Yes Types: Marijuana Comment: occasionally Allergy Information I have reviewed the patient's allergies. Patient has no known allergies. Home Medications Home medications were reviewed. Review Of Systems All relevant systems have been reviewed and are negative except as noted in HPI or below Physical Examination BP (!) 139/96 Pulse (!) 100 Temp 98 F (36.7 C) Resp 16 SpO2 98% General Appearance: alert; acutely ill appearing; in no acute distress HEENT: Head- normocephalic; Eyes- EOMI, sclera anicteric; Throat- mucous membranes moist Cardiovascular: regular rate and rhythm; normal S1, S2; no murmurs, rubs, clicks or gallops; peripheral edema absent Respiratory: lungs clear to auscultation; without wheezes, rales or rhonchi; on room air Abdomen: soft, non-tender, non-distended Neurological: oriented x 3; normal speech; no focal findings or movement disorder noted Musculoskeletal: no significant deformity or tenderness to palpation Skin: normal coloration Psych: normal mood and affect documented in this encounter [facility] 03-11-2024 Emergency department Note Rounding: ABCs intact, no c/o. ACTIVITY: Pt resting quietly on cart; patent airway. Spontaneous breathing w/ regular respirations. NEEDS/CONCERNS- none voiced, SAFETY: cart in low position, call light within reach. Pt remains in blue gown with continuous video/sitter monitoring in place for pt safety. No HI/SI attempts, nonviolent at present. [facility] 03-11-2024 Emergency department Note Rounding: ABCs intact, no c/o. ACTIVITY: Pt resting quietly on cart; patent airway. Spontaneous breathing w/ regular respirations. NEEDS/CONCERNS- none voiced, SAFETY: cart in low position, call light within reach. Pt remains in blue gown with continuous video/sitter monitoring in place for pt safety. No HI/SI attempts, nonviolent at present. [facility] 03-11-2024 Emergency department Note community relations assistant and C unit made aware of results. Bed change will be required. [facility] 03-11-2024 Emergency department Note Report given to C unit, awaiting strep and COVID results until patient can go upstairs. [facility] 03-11-2024 Emergency department Note Rounding: ABCs intact, no c/o. ACTIVITY: Pt resting quietly on cart; patent airway. Spontaneous breathing w/ regular respirations. NEEDS/CONCERNS- none voiced, SAFETY: cart in low position, call light within reach. Pt remains in blue gown with continuous video/sitter monitoring in place for pt safety. No HI/SI attempts, nonviolent at present. [facility] 03-11-2024 Physician Emergency department Note ED Attestation: I have reviewed the Advanced Practice Provider's (NAYLA's) documentation. In addition, I have personally introduced myself to the patient (face to face), and have taken his history and performed an examination. I agree with the physical findings, management, clinical impression and disposition. [facility] Work Phone: 03-11-2024 Miscellaneous Notes ED Attestation: I have reviewed the Advanced Practice Provider's (NAYLA's) documentation. In addition, I have personally introduced myself to the patient (face to face), and have taken his history and performed an examination. I agree with the physical findings, management, clinical impression and disposition. Behavioral Health Pre Admission Screening Tool Date: 03/11/2024 Time: 6:27 PM Patient Name: Mikayla Sotelo Date of : 1990 Sex: Male Prescreener Caller Information: Fernanda CADENA Referral Source: ([facility] ED) Diagnosis: Depression, PTSD, stimuliant use disorder Presenting Problem/Chief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 Hold] sodium chloride (PF) (NS) flush 5 mL, 5 mL, Intravenous, Q8H EVA AND [APR Hold] sodium chloride 0.9% (NS), 0-150 mL/hr, Intravenous, PRN, Chanel Rogers MD REVIEW OF SYSTEMS All other organ systems were reviewed and were negative except as documented in the HPI. PHYSICAL EXAM Vitals: 02/19/22 1045 02/19/22 1047 02/19/22 1139 02/19/22 1447 BP: 119/72 (!) 157/94 BP Location: Right arm Patient Position: Lying Pulse: 98 (!) 108 Resp: 18 18 Temp: TempSrc: Infrared SpO2: 98% 100% Weight: 70.3 kg (155 lb) Height: 6' 1 Physical Exam Vitals reviewed. Constitutional: General: He is not in acute distress. Appearance: He is not ill-appearing. HENT: Head: Normocephalic and atraumatic. Pulmonary: Effort: Pulmonary effort is normal. No respiratory distress. Abdominal: General: There is no distension. Palpations: Abdomen is soft. Tenderness: There is no abdominal tenderness. Genitourinary: Comments: Ecchymosis & edema of the mid penile shaft & glans with some associated tenderness, consistent with penile fracture. Circumcised phallus. Orthotopic meatus. No blood at the meatus. Musculoskeletal: General: No deformity. Cervical back: Neck supple. No rigidity. Skin: General: Skin is warm and dry. Neurological: General: No focal deficit present. Mental Status: He is alert and oriented to person, place, and time. Psychiatric: Comments: Anxious, tearful, follows commands & responds to questions appropriately LABS Recent Labs 02/19/22 1244 WBC 5.31 HGB 15.7 HCT 46.8 PLT 156 Recent Labs 02/19/22 1244 NA 143 K 3.9 CL 107 BUN 11 CREATININE 0.87 GLUCOSE 85 CALCIUM 9.3 UA Urinalysis Order: [id number] Status: Final result Visible to patient: No (inaccessible in MyChart) 0 Result Notes Component Ref Range & Units 12:44 8 yr ago Color, Urine Colorless, Yellow Dark Yellow Abnormal Yellow R Clarity, Urine Clear Clear Specific [place] 1.005 - 1.025 1.024 pH, Urine 5.0 - 7.0 6.0 6.0 R Protein, Urine Negative mg/dL Negative Trace R Glucose, Urine Negative mg/dL Negative Negative Ketones, Urine Negative mg/dL Negative Bilirubin, Urine Negative Negative Urobilinogen, Urine <2.0 mg/dL <2.0 Blood, Urine Negative Negative Small Abnormal Nitrite, Urine Negative Negative Leukocyte Esterase, Urine Negative Negative WBCs, Urine 0 - 5 /hpf 2 2 RBCs, Urine 0 - 3 /hpf 1 3 Bacteria, Urine None Seen /hpf None Seen Squamous Epithelial 0 - 4 /hpf <1 Mucus, Urine None Seen, Rare /lpf Rare Clarity Clear R Specific [place] 1.027 High R Ketone Negative R Bilirubin Negative R Urobilinogen <2.0 R Nitrite Negative R Leuk Esterase Negative R Mucous Rare R Bacteria Rare Abnormal R, CM Resulting Agency [facility] Narrative Performed by: Lab Microscopic examination is performed on all urinalysis samples and only positive findings are reported. The test for blood on the chemical analytic portion of urinalysis may also be positive due to hemoglobinuria and myoglobinuria and if red blood cells are present they are quantified by microscopic examination. Specimen Collected: 02/19/22 12:44 Last Resulted: 02/19/22 12:56 Urine Culture none IMAGING none ASSESSMENT & PLAN 31 y.o. male with Penile fracture Polysubstance abuse Methamphetamine intoxication - Labs & imaging reviewed as above. - History & exam consistent with acute penile fracture. - This is the classic presentation of a penile fracture. - Discussed management options with patient, long discussion >50 minutes combined between initial discussion & then subsequent discussion in preop. - I initially was not aware he was acutely intoxicated & had history of daily methamphetamine use for months at minimum, so in my initial discussion with him I recommended NPO & taking to the OR for exploration & repair of the fracture, to which he was agreeable. - In the preoperative area we had a subsequent discussion including with the anesthesiologist & patient explained his polysubstance abuse & we subsequently discussed the risks/benefits/alternatives to immediate repair versus delayed repair versus observation / expectant management. - We discussed the risks of general anesthesia with methamphetamine which include major cardiac events up to & including . Per the anesthesiologist, with chronic use he would need to refrain for weeks to significantly lower this risk & for acute use at least 24-48 would be necessary to significantly lower the risks. - Discussed the jail side effects from penile fracture including erectile dysfunction & penile curvature / Peyronie disease among other issues. Discussed that these side effects can occur regardless of whether the injury is occurred immediately or in delayed fashion or not at all. Discussed that the available data is not robust but tends to favor immediate repair. Discussed that there are potential medical & surgical options for management of these side effects regardless of when they occur or the inciting etiology. - After discussion, patient did not want to proceed with immediate surgery due to the cardiac risks. I explained that I am not available to perform surgery again until 02/22 but I offered to arrange transfer to another facility with urology coverage over the next few days for possible repair. We discussed the risks/benefits/alternatives to this. We discussed the limited inpatient bed availability at other facilities, the current wait lists for transfers & the potential that any accepting facility / urologist may have the same lc discussion with him & ultimately it could be decided to forego immediate repair anyway, regardless of the timing or location. After this discussion, he declined transfer to another facility. - Discussed that if no immediate repair is taking place, I recommend refraining from any substance use for as long as possible & to reevaluate in the office in 3-4 weeks & repeat discussion at that point, to which he was agreeable. - He stated he has a ride available to come pick him up & at this point I spoke with the hospitalist & plan will be to cancel surgery & to discharge the patient home with plans for followup in 3-4 weeks in my office. - Patient expressed understanding of the above discussion. All questions answered. - Thank you for the consultation & allowing me to participate in this patient's care. Please contact me at any time with any questions or concerns. Bartolo Garrido [facility] 4:28 PM 02/19/22 documented in this encounter [facility] 02-19-2022 [place] and physical [place] [facility] [place] [facility] Patient Name: Mikayla Sotelo : 1990 MR #: [id number] Admit Date: 02/19/2022 Physicians: Miguel A Whitehead CNP (Family); No ref. provider found (Referring) Mikayla Sotelo is a 31 y.o. male patient of Miguel A Whitehead CNP with no significant PMH presented to [facility] as a transfer from [facility] for penile injury. Assessment and plan 1. Acute penile injury S/p intercourse Patient currently n.p.o. Evaluated by urology. Patient to OR for repair Pain management 2. Tobacco dependence disorder More than 5 minutes spent on counseling against tobacco smoking Will add nicotine patch Code Status: Full Code Medication Reconciliation: Verified Residence prior to admission: house or apartment Was patient transferred from outlying hospital or ED -yes Quality Measures DVT Prophylaxis: ambulation only Cr Catheter: absent Risk variables present on admission:None. Please see assessment and plan for further details. Chief Complaint penile fracture History of Present Illness Mikayla Sotelo is a 31 y.o. male patient of Miguel A Whitehead CNP with no significant PMH presented to [facility] as a transfer from [facility] for penile injury. Patient states he was having intercourse last night, felt his pain is worsening and now has swelling pain and angulation of the penile shaft. Patient states he is able to urinate in small amounts. patient is currently being evaluated by urology who is planning to take him to the OR patient advised no complaints. Denies any chest pain abdominal pain nausea vomiting fever or chills Past Medical History Past Medical History: Diagnosis Date Hepatitis C Herpes genitalis in men Past Surgical History History reviewed. No pertinent surgical history. Family History Family History Problem Relation Age of Onset Diabetes Father Diabetes Maternal Aunt Diabetes Maternal Grandmother Diabetes Paternal Grandmother Social History Social History Tobacco Use Smoking Status Every Day Packs/day: 0.50 Types: Cigarettes Smokeless Tobacco Never Social History Substance and Sexual Activity Alcohol Use Not Currently Social History Substance and Sexual Activity Drug Use Yes Types: Marijuana Comment: occasionally Allergy Information I have reviewed the patient's allergies. Patient has no known allergies. Home Medications Home medications were reviewed. Review Of Systems All systems have been reviewed and are negative except as noted in HPI or below Physical Examination BP (!) 157/94 (BP Location: Right arm, Patient Position: Lying) Pulse (!) 108 Temp 97.6 F (36.4 C) (Oral) Resp 18 Ht 6' 1 Wt 70.3 kg (155 lb) SpO2 100% BMI 20.45 kg/m General Appearance: alert; acutely ill appearing; in mild acute distress HEENT: Head- normocephalic; Eyes- EOMI, sclera anicteric; Ears- hearing intact; Nose- no nasal discharge; Throat- mucous membranes moist Cardiovascular: regular rate and rhythm; normal S1, S2; no murmurs, rubs, clicks or gallops; no peripheral edema Respiratory: lungs clear to auscultation; without wheezes, rales or rhonchi; on room air Abdomen: soft, non-tender, non-distended; positive bowel sounds Neurological: oriented x 3; normal speech; no focal findings or movement disorder noted Musculoskeletal: Tenderness swelling of the penis present. Angulation noted at the shaft Skin: normal coloration; no obvious rashes, lesions or skin breakdown Psych: normal mood and affect Laboratory and Additional Data Reviewed Laboratory 02/19/22 3:21 PM Microbiology 02/19/22 3:21 PM Radiology 02/19/22 3:21 PM [facility] 02-19-2022 History and physical note [facility] [facility] [place] [facility] Patient Name: Mikayla Sotelo : 1990 MR #: [id number] Admit Date: 02/19/2022 Physicians: Miguel A Whitehead CNP (Family); No ref. provider found (Referring) Mikayla Sotelo is a 31 y.o. male patient of Miguel A Whitehead CNP with no significant PMH [facility] Center as a transfer from [facility] for penile injury. Assessment and plan 1. Acute penile injury S/p intercourse Patient currently n.p.o. Evaluated by urology. Patient to OR for repair Pain management 2. Tobacco dependence disorder More than 5 minutes spent on counseling against tobacco smoking Will add nicotine patch Code Status: Full Code Medication Reconciliation: Verified Residence prior to admission: house or apartment Was patient transferred from outlying hospital or ED -yes Quality Measures DVT Prophylaxis: ambulation only Cr Catheter: absent Risk variables present on admission:None. Please see assessment and plan for further details. Chief Complaint penile fracture History of Present Illness Mikayla Sotelo is a 31 y.o. male patient of Miguel A Whitehead CNP with no significant PMH presented to [facility] as a transfer from [facility] for penile injury. Patient states he was having intercourse last night, felt his pain is worsening and now has swelling pain and angulation of the penile shaft. Patient states he is able to urinate in small amounts. patient is currently being evaluated by urology who is planning to take him to the OR patient advised no complaints. Denies any chest pain abdominal pain nausea vomiting fever or chills Past Medical History Past Medical History: Diagnosis Date Hepatitis C Herpes genitalis in men Past Surgical History History reviewed. No pertinent surgical history. Family History Family History Problem Relation Age of Onset Diabetes Father Diabetes Maternal Aunt Diabetes Maternal Grandmother Diabetes Paternal Grandmother Social History Social History Tobacco Use Smoking Status Every Day Packs/day: 0.50 Types: Cigarettes Smokeless Tobacco Never Social History Substance and Sexual Activity Alcohol Use Not Currently Social History Substance and Sexual Activity Drug Use Yes Types: Marijuana Comment: occasionally Allergy Information I have reviewed the patient's allergies. Patient has no known allergies. Home Medications Home medications were reviewed. Review Of Systems All systems have been reviewed and are negative except as noted in HPI or below Physical Examination BP (!) 157/94 (BP Location: Right arm, Patient Position: Lying) Pulse (!) 108 Temp 97.6 F (36.4 C) (Oral) Resp 18 Ht 6' 1 Wt 70.3 kg (155 lb) SpO2 100% BMI 20.45 kg/m General Appearance: alert; acutely ill appearing; in mild acute distress HEENT: Head- normocephalic; Eyes- EOMI, sclera anicteric; Ears- hearing intact; Nose- no nasal discharge; Throat- mucous membranes moist Cardiovascular: regular rate and rhythm; normal S1, S2; no murmurs, rubs, clicks or gallops; no peripheral edema Respiratory: lungs clear to auscultation; without wheezes, rales or rhonchi; on room air Abdomen: soft, non-tender, non-distended; positive bowel sounds Neurological: oriented x 3; normal speech; no focal findings or movement disorder noted Musculoskeletal: Tenderness swelling of the penis present. Angulation noted at the shaft Skin: normal coloration; no obvious rashes, lesions or skin breakdown Psych: normal mood and affect Laboratory and Additional Data Reviewed Laboratory 02/19/22 3:21 PM Microbiology 02/19/22 3:21 PM Radiology 02/19/22 3:21 PM documented in this encounter [facility] 02-19-2022 Physician Emergency department Note Associated Order(s): Critical Care [facility] ED Attending Note: NAME: Mikayla Sotelo 31 y.o. CSN: [id number] PCP: Miguel A Whitehead CNP History: Chief Complaint: Penis Injury HPI: The history was obtained from the patient. Mikayla is a 31 y.o. male who presents with a chief complaint of Penis Injury. Penis Injury Patient presents for penile injury that occurred at approximately 1800 hrs. last night. Patient was having intercourse, and felt snapped, and now has swelling and angulation to the penile shaft. Patient was evaluated at [facility], where the ER physician there spoke with the on-call urologist, who request that he be transferred here for further evaluation and possible surgery. [facility], the medicine service here was accepting the patient for primary admission, however, due to lack of bed availability, and not wanting to delay his care, they directed him here to the ER to wait for a bed for admission. PMHx: Past Medical History: Diagnosis Date Hepatitis C Herpes genitalis in men PMSx: History reviewed. No pertinent surgical history. FAM. Hx: Family History Problem Relation Age of Onset Diabetes Father Diabetes Maternal Aunt Diabetes Maternal Grandmother Diabetes Paternal Grandmother SOC. Hx: Social History Socioeconomic History Marital status: Single Tobacco Use Smoking status: Every Day Packs/day: 0.50 Types: Cigarettes Smokeless tobacco: Never Vaping Use Vaping Use: Never used Substance and Sexual Activity Alcohol use: Not Currently Drug use: Yes Types: Marijuana Comment: occasionally MEDs: Previous Medications Medication Sig ondansetron (Zofran) 4 MG tablet Take 1 (one) tablet (4 mg total) by mouth every 8 (eight) hours as needed . [DISCONTINUED] bacitracin 500 unit/gram ophthalmic ointment Apply to lower eyelids . (Patient not taking: Reported on 12/14/2021 .) [DISCONTINUED] nystatin-triamcinolone (MYCOLOG II) cream Apply topically 4 (four) times a day . [DISCONTINUED] sulfamethoxazole-trimethoprim (BACTRIM DS,SEPTRA DS) 800-160 mg per tablet Take 1 (one) tablet by mouth 2 (two) times a day . ALL: No Known Allergies ROS: Review of Systems Genitourinary: Positive for penile pain and penile swelling. Negative for hematuria, penile discharge, scrotal swelling and testicular pain. Positives and pertinent negatives as per HPI. All other systems were reviewed and are negative. Physical Exam: Patient Vitals for the past 24 hrs: BP Temp Temp src Pulse Resp SpO2 Height Weight 02/19/22 1139 119/72 -- -- 98 -- 98 % -- -- 02/19/22 1047 -- -- -- -- -- -- 6' 1 70.3 kg (155 lb) 02/19/22 1045 -- -- -- -- 18 -- -- -- 02/19/22 1025 (!) 136/90 97.6 F (36.4 C) Oral (!) 100 -- 99 % -- -- Physical Exam Exam conducted with a nuclear worker technician present (HERMELINDO Trammell). Constitutional: General: He is not in acute distress. Appearance: He is not diaphoretic. HENT: Head: Normocephalic and atraumatic. Right Ear: External ear normal. Left Ear: External ear normal. Eyes: General: No scleral icterus. Neck: Vascular: No JVD. Trachea: No tracheal deviation. Cardiovascular: Rate and Rhythm: Normal rate and regular rhythm. Pulses: Normal pulses. Heart sounds: Normal heart sounds. No murmur heard. No friction rub. No gallop. Pulmonary: Effort: Pulmonary effort is normal. No respiratory distress. Breath sounds: Normal breath sounds. No wheezing or rales. Chest: Chest wall: No tenderness. Genitourinary: Penis: Tenderness and swelling present. Testes: Normal. Comments: Ecchymosis, swelling, and angulation is noted to the shaft. Musculoskeletal: General: No deformity. Neurological: General: No focal deficit present. Mental Status: He is alert and oriented to person, place, and time. Psychiatric: Behavior: Behavior normal. Laboratory & Radiological Imaging (if done): Labs Reviewed URINALYSIS - Abnormal; Notable for the following components: Result Value Color, Urine Dark Yellow (*) All other components within normal limits Narrative: Microscopic examination is performed on all urinalysis samples and only positive findings are reported. The test for blood on the chemical analytic portion of urinalysis may also be positive due to hemoglobinuria and myoglobinuria and if red blood cells are present they are quantified by microscopic examination. CBC WITH AUTO DIFFERENTIAL - Abnormal; Notable for the following components: MPV 8.6 (*) All other components within normal limits BASIC METABOLIC PANEL - Normal Narrative: [facility] has implemented the eGFR calculation approach that does not have a coefficient for race that conforms to the NKF-ASN Task Force Recommendations. CBC AND DIFFERENTIAL Narrative: The following orders were created for panel order CBC w/ Diff. Procedure Abnormality Status --------- ------ CBC Auto Differential[[id number]] Abnormal Final result Please view results for these tests on the individual orders. No orders to display Procedures: Critical Care Performed by: Aden Ramírez MD Authorized by: Aden Ramírez MD Total critical care time: 35 minutes Critical care time was exclusive of separately billable procedures and treating other patients. Critical care was necessary to treat or prevent imminent or life-threatening deterioration of the following conditions: trauma. Critical care was time spent personally by me on the following activities: development of treatment plan with patient or surrogate, discussions with consultants, evaluation of patient's response to treatment, examination of patient, obtaining history from patient or surrogate, ordering and performing treatments and interventions, ordering and review of laboratory studies, ordering and review of radiographic studies, pulse oximetry, re-evaluation of patient's condition and review of old charts. ED Course / Medical Decision Makin-year-old male, presented for evaluation of a penile injury sustained during intercourse last night as described above. Does have some angulation and a significant amount of swelling to the penile shaft. I do consult urology, and they are down here to evaluate the patient. They will plan to take the patient to the OR later today. [facility] [place], already accepted the patient for admission from the outside hospital, I updated Dr. Lindo on the patient's surgical plan, they will continue to accept the patient onto their inpatient service, med-surg. We discussed the results of the work up in the emergency department. Patient is agreeable to the plan of care, including for admission to the OR for surgical repair. ED MIPS (if empty, not applicable): Clinical Impression: 1. Fracture of corpus cavernosum penis, initial encounter Disposition: hospitalize to Operating Room Aden Ramírez M.D. Attending Physician [facility] Emergency Departments 02/19/2022 Portions of this note may have been dictated utilizing voice recognition software. Unfortunately this leads to occasional typographical errors. If questions arise please do not hesitate to contact my office for clarification. (Please note that portions of this note have been completed with a voice recognition software. Efforts were made to correct any errors, but occasionally words are mis-transcribed.) Aden Ramírez MD 02/19/22 1401 [facility] Work Phone: 02-19-2022 Emergency department Note Associated Order(s): Critical Care [facility] ED Attending Note: NAME: Mikayla Sotelo 31 y.o. CSN: [id number] PCP: Miguel A Whitehead CNP History: Chief Complaint: Penis Injury HPI: The history was obtained from the patient. Mikayla is a 31 y.o. male who presents with a chief complaint of Penis Injury. Penis Injury Patient presents for penile injury that occurred at approximately 1800 hrs. last night. Patient was having intercourse, and felt snapped, and now has swelling and angulation to the penile shaft. Patient was evaluated at [facility], where the ER physician there spoke with the on-call urologist, who request that he be transferred here for further evaluation and possible surgery. [facility] [place] here was accepting the patient for primary admission, however, due to lack of bed availability, and not wanting to delay his care, they directed him here to the ER to wait for a bed for admission. PMHx: Past Medical History: Diagnosis Date Hepatitis C Herpes genitalis in men PMSx: History reviewed. No pertinent surgical history. FAM. Hx: Family History Problem Relation Age of Onset Diabetes Father Diabetes Maternal Aunt Diabetes Maternal Grandmother Diabetes Paternal Grandmother SOC. Hx: Social History Socioeconomic History Marital status: Single Tobacco Use Smoking status: Every Day Packs/day: 0.50 Types: Cigarettes Smokeless tobacco: Never Vaping Use Vaping Use: Never used Substance and Sexual Activity Alcohol use: Not Currently Drug use: Yes Types: Marijuana Comment: occasionally MEDs: Previous Medications Medication Sig ondansetron (Zofran) 4 MG tablet Take 1 (one) tablet (4 mg total) by mouth every 8 (eight) hours as needed . [DISCONTINUED] bacitracin 500 unit/gram ophthalmic ointment Apply to lower eyelids . (Patient not taking: Reported on 12/14/2021 .) [DISCONTINUED] nystatin-triamcinolone (MYCOLOG II) cream Apply topically 4 (four) times a day . [DISCONTINUED] sulfamethoxazole-trimethoprim (BACTRIM DS,SEPTRA DS) 800-160 mg per tablet Take 1 (one) tablet by mouth 2 (two) times a day . ALL: No Known Allergies ROS: Review of Systems Genitourinary: Positive for penile pain and penile swelling. Negative for hematuria, penile discharge, scrotal swelling and testicular pain. Positives and pertinent negatives as per HPI. All other systems were reviewed and are negative. Physical Exam: Patient Vitals for the past 24 hrs: BP Temp Temp src Pulse Resp SpO2 Height Weight 02/19/22 1139 119/72 -- -- 98 -- 98 % -- -- 02/19/22 1047 -- -- -- -- -- -- 6' 1 70.3 kg (155 lb) 02/19/22 1045 -- -- -- -- 18 -- -- -- 02/19/22 1025 (!) 136/90 97.6 F (36.4 C) Oral (!) 100 -- 99 % -- -- Physical Exam Exam conducted with a nuclear worker technician present (HERMELINDO Trammell). Constitutional: General: He is not in acute distress. Appearance: He is not diaphoretic. HENT: Head: Normocephalic and atraumatic. Right Ear: External ear normal. Left Ear: External ear normal. Eyes: General: No scleral icterus. Neck: Vascular: No JVD. Trachea: No tracheal deviation. Cardiovascular: Rate and Rhythm: Normal rate and regular rhythm. Pulses: Normal pulses. Heart sounds: Normal heart sounds. No murmur heard. No friction rub. No gallop. Pulmonary: Effort: Pulmonary effort is normal. No respiratory distress. Breath sounds: Normal breath sounds. No wheezing or rales. Chest: Chest wall: No tenderness. Genitourinary: Penis: Tenderness and swelling present. Testes: Normal.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 respiratory rate is 10 or greater.
And Notify physician (CANCELED) STAT, Until discontinued, Starting on Tue02/19/22 at 1533, Until Specified
Respiratory rate less than: 8
For respiratory rate less than or equal to 8, notify physician and/or appropriate staff for additional orders. And naloxone (NARCAN) injection 0.4 mgJump to med 0.4 mg, Intravenous, As needed, opioid reversal, patient is pulseless, breathless, and unresponsive, Starting on Tue02/19/22 at 1532
Call a code first, then administer naloxone dose undiluted IV Push over 30 seconds.
Scheduled Medication Order 07/03/2023 07/04/2023 07/05/2023 cephALEXin (KEFLEX) capsule 500 mg (COMPLETED) 500 mg, Oral, ONCE, 1 dose, On Tue07/05/23 at 2245 2215 (Given - Provid er: Pretty Moreau RN) Scheduled Medication Order 07/07/2023 07/08/2023 07/09/2023 acetaminophen (TYLENOL) tablet 1,000 mg (COMPLETED) 1,000 mg, Oral, ONCE, 1 dose, On 07/09/23 at 211 210 (Given - Provid er: Magalie Vinson RN) Bacitracin ointment 1 Application (COMPLETED) 1 Application, Topical, ONCE, 1 dose, On 07/09/23 at 2114, Apply to finger 2104 (Given - Provid er: Magalie Vinson RN) cephALEXin (KEFLEX) capsule 500 mg 500 mg, Oral, EVERY 6 HOURS, First dose on 07/09/23 at 204, Until Discontinued 2103 (Given - Provid er: Magalie Vinson RN) Ibuprofen (MOTRIN) tablet 600 mg (COMPLETED) 600 mg, Oral, ONCE, 1 dose, On 07/09/23 at 2114, Give with food 2103 (Given - Provid er: Magalie Vinson RN) Scheduled Medication Order 03/11/2024 03/12/2024 03/13/2024 acetaminophen (TYLENOL) tablet 975 mg (COMPLETED) 975 mg, Oral, Once, On 03/11/24 at 1845, For 1 dose 1845 (Given - Provider: Valeri Zarate RN) enoxaparin (LOVENOX) syringe 40 mg 40 mg, Subcutaneous, Daily, First dose on Tue03/12/24 at 0800, Administer in abdomen unless otherwise directed by prescriber. Notify physician if patient refuses., Indication: VTE Prophylaxis 0800 (Not Given - Provider: Valeri Zarate RN - Reason: Patient/family refused) 0800 (Due) guaiFENesin (MUCINEX) 12 hr tablet 600 mg (COMPLETED) 600 mg, Oral, Once, On Tue03/12/24 at 0940, For 1 dose, DO NOT CRUSH OR CHEW. 0945 (Given - Provider: Valeri Zarate RN) sodium chloride (PF) (NS) flush 5 mL(Linked Group 1) 5 mL, Intravenous, Every 8 hours scheduled, First dose on 03/11/24 at 2230, Saline lock 2230 (Not Given - Provider: Connie Andrews RN - Reason: Other - Comment: No IV access at this time.) 0600 (Hold - Provider: Valeri Zarate RN - Reason: Other - Comment: no iv at this time)1400 (Not Given - Provider: Valeri Zarate RN - Reason: Other - Comment: NO IV)2200 (Canceled Entry - Provider: Carmen Villanueva RN) 0600 (Due) PRN Medication Order 03/11/2024 03/12/2024 03/13/2024 acetaminophen (TYLENOL) tablet 650 mg 650 mg, Oral, Every 6 hours PRN, headaches, Starting on 03/11/24 at 2231 0945 (Given - Provider: Valeri Zarate RN) ibuprofen (ADVIL,MOTRIN) tablet 400 mg 400 mg, Oral, Every 6 hours PRN, headaches, Starting on 03/11/24 at 2231, Give with Food Do Not Crush or Chew if administering orally due to bitter taste. May be crushed if given via tube. 2111 (Given - Provider: Carmen Villanueva RN) iopamidoL (ISOVUE-370) 370 mg iodine /mL (76 %) injection 75 mL (COMPLETED) 75 mL, Intravenous, Once in imaging, contrast, Starting on 03/11/24 at 1638, For 1 dose 164 (Contrast Administered - Provider: Anna Esquivel, TECHNOLOGIST - Comment: [id number]) melatonin Tab 5 mg 5 mg, Oral, Nightly PRN, Sleep, Starting on 03/11/24 at 2223 211 (Given - Provider: Carmen Villanueva RN) ondansetron (ZOFRAN) injection 4 mg 4 mg, Intravenous, Every 6 hours PRN, nausea, vomiting, Starting on 03/11/24 at 2223 sodium chloride (PF) (NS) 0.9 % contrast line flush 10 mL (COMPLETED)(Linked Group 2) 10 mL, Intravenous, Once in imaging, contrast, Per mushroom sorter grader (Radiology) for line patency check prior to contrast administration, Starting on 03/11/24 at 1638, For 1 dose 1643 (Given - Provider: Anna Esquivel, TECHNOLOGIST) sodium chloride (PF) (NS) 0.9 % contrast line flush 80 mL (COMPLETED)(Linked Group 2) 80 mL, Intravenous, Once in imaging, contrast, Per mushroom sorter grader (Radiology), Starting on 03/11/24 at 1638, For 1 dose, 30 mL BEFORE contrast administration 50 mL AFTER contrast administration 164 (Given - Provider: Anna Esquivel, TECHNOLOGIST) sodium chloride (PF) (NS) flush 5 mL(Linked Group 1) 5 mL, Intravenous, As needed, line care, Starting on 03/11/24 at 2223 sodium chloride 0.9% (NS)(Linked Group 1) 0-150 mL/hr, Intravenous, As needed, To flush line after IV infusions when no maintenance IV ordered or a compatibility issue. Infuse 20ml at the same rate as the secondary infusion, Starting on 03/11/24 at 2223, Run as Primary IV. NOT intended for KVO. Linked Groups Order Group 1: Saline lock IV (CANCELED) Routine, Continuous, Starting on 03/11/24 at 2224, Until Specified And sodium chloride (PF) (NS) flush 5 mLJump to med 5 mL, Intravenous, As needed, line care, Starting on 03/11/24 at 2223 And sodium chloride (PF) (NS) flush 5 mLJump to med 5 mL, Intravenous, Every 8 hours scheduled, First dose on [place] 03/11/24 at 2230, Saline lock And sodium chloride 0.9% (NS)Jump to med 0-150 mL/hr, Intravenous, As needed, To flush line after IV infusions when no maintenance IV ordered or a compatibility issue. Infuse 20ml at the same rate as the secondary infusion, Starting on [place] 03/11/24 at 2223, Run as Primary IV. NOT intended for KVO. Group 2: sodium chloride (PF) (NS) 0.9 % contrast line flush 10 mL (COMPLETED)Jump to med 10 mL, Intravenous, Once in imaging, contrast, Per mushroom sorter grader (Radiology) for line patency check prior to contrast administration, Starting on [place] 03/11/24 at 1638, For 1 dose And sodium chloride (PF) (NS) 0.9 % contrast line flush 80 mL (COMPLETED)Jump to med 80 mL, Intravenous, Once in imaging, contrast, Per mushroom sorter grader (Radiology), Starting on [place] 03/11/24 at 1638, For 1 dose, 30 mL BEFORE contrast administration 50 mL AFTER contrast administration Care Teams (unrecognized sec tion and content) Manager Med Surg Relationship Specialty Start Date End Date Miguel A Whitehead CNP [address] [place] [address] PCP - General Family Medicine 10/25/17 Manager Med Surg Relationship Specialty Start Date End Date Miguel A Whitehead APRN-CNP [address] [place] [address] PCP - General Certified Nurse Practitioner 07/05/23 Manager Med Surg Relationship Specialty Start Date End Date Miguel A Whitehead APRN-CNP [address] [place] [address] PCP - General Certified Nurse Practitioner 07/05/23 Manager Med Surg Relationship Specialty Start Date End Date Miguel A Whitehead APRN-CNP [address] [place] [address] PCP - General Certified Nurse Practitioner 07/05/23 Manager Med Surg Relationship Specialty Start Date End Date Miguel A WhiteheadSANDRA [address] [place] [address] PCP - General Family Medicine 10/25/17 Manager Med Surg Relationship Specialty Start Date End Date Miguel A WhiteheadSANDRA [address] [place] [address] PCP - General Family Medicine 10/25/17 Manager Med Surg Relationship Specialty Start Date End Date Miguel A WhiteheadSANDRA [address] [place] [address] PCP - General Family Medicine 10/25/17 FOR RECORDS PERTAINING TO PATIENTS WHO ARE OR HAVE BEEN ENROLLED IN A CHEMICAL DEPENDENCY/SUBSTANCEABUSE PROGRAM, SOME INFORMATION MAY BE OMITTED. This clinical summary was aggregated from multiple sources. Caution should be exercised in using it in the provision of clinical care. This summary normalizes information from multiple sources, and as a consequence, information in this document may materially change the coding, format and clinical context of patient data. In addition, data may be omitted in some cases. CLINICAL DECISIONS SHOULD BE BASED ON THE PRIMARY CLINICAL RECORDS. [facility]. provides no warranty or guarantee of the accuracy or completeness of information in this document.
[2025-01-12 20:23] LABS: AST(SGOT) 30 U/L (<=37); Alanine Aminotransfer ALT/SGPT 59 U/L (<=46); Albumin, Serum 4.2 g/dL (3.5-5.0); Alkaline Phosphatase 119 U/L (40-129); Anion Gap 12 (5-15); BUN 17 mg/dL (4-19); BUN/Creat Ratio 22.9 RATIO (10-20); Calcium,Total 9.4 mg/dL (7.6-11.0); Carbon Dioxide 25.4 mmol/L (21.0-32.0); Chloride 101 mmol/L (98-108); Estimated Creatinine Clearance 127.89 ml/min (50-250); Globulin 3.1 g/dL (2.2-4.2); Glucose 101 mg/dL (70-99); Potassium 3.8 mmol/L (3.3-5.1)
[2025-01-12 20:24] LABS: Alcohol, Blood (Medical)-Serum < 10.1 mg/dL (<=10.0)
[2025-01-12 20:36] VITALS: BP 123/72; PULSE 98; O2SAT 100
[2025-01-12 21:00] VITALS: BP 121/71; PULSE 89; O2SAT 100
[2025-01-12 21:08] LABS: Barbiturate Urine NEGATIVE (< 200 ng/mL); Benzodiazepine Urine NEGATIVE (< 200 ng/mL); PCP Urine NEGATIVE (< 25 ng/mL); THC Urine PRESUMPTIVE POSITIVE (< 50 ng/mL)
[2025-01-12 21:16] VITALS: BP 125/75; PULSE 88; RESP 18; TEMP 36.6; O2SAT 99
--- OUTSIDE RECORDS SUMMARY | 2025-01-12 21:37 | XMS RPT_ITS | CCD ---
Author Organization [facility] Inform ion Partnership [facility] Care Team Providers Care Vinyl Top Installer Name Role Phone Micah Morocho Unavailable Unavailable Micah Morocho Unavailable Unavailable MIGUEL A WHITEHEAD Unavailable Unavailable ETMIGUEL A BARRETT Unavailable Unavailable AUSTYN WHITE Attending Unavailab le EtMiguel A barrett Primary Care Provider TORY FARRIS Attending Unavailab le MIGUEL A WHITEHEAD Primary Care Unavailable Miguel A Whitehead Primary Care Provider [phone] EtMiguel A barrett Primary Care Provider Etzel FIRST OFFICER AND FLIGHT INSTRUCTORMiguel A Primary Care Provider Etzel CHARGE WEIGHER-FIRST OFFICER AND FLIGHT INSTRUCTORMiguel A Primary Care Provider [phone] MIGUEL A WHITEHEAD [facility] Care Unavailable ETMIGUEL A BARRETT [facility] Care Unavailable ETMIGUEL A BARRETT Primary Care [...] day . 25 tablet 0 05/05/2020 Active [id number] 200 actuat albuterol 0.09 mg/actuat metered dose [...] 40 mg/ml oral suspension (4 sources) Uncompetitive G-mebnon-M-aspartate Receptor Antagonist, Sigma-1 Agonist Start: 11-22-2023 End: [...] 05-24-2019 prochlorperazine (COMPAZINE) injection 10 mg sennosides, longterm 8.6 mg oral tablet (1 source) Start: [...] 12-04-2024 ED Prov Note ED PROVIDER NOTE [facility] EMERGENCY DEPARTMENT NAME: Mikayla Sotelo AGE: 34 y.o. : 1990 VISIT DATE: 12/04/2024 CSN: [id number] PCP: Miguel A Whitehead, SANDRA Chief Complaint [...] for reevaluation for persistent discomfort Zabrina Wan [facility] [place] [phone] Contact information for after-discharge care Follow-up [...] Allergies Jeanette Blunt MD 12/04/242235 AUTHENTICATED BY EJANETTE BLUNT, ON 12/04/2024 22:36:25 [facility] XR HAND RIGHT 3+ VIEWS (ISAIAS DARD)on [...] on TueDec 04, 2024 10:28:56 PM EDT [facility] Comment on above: Order Comment: [...] 2024 10:28:56 PM EDT Finalized by: JAVIER RIA on TueDec 04, 2024 10:28:56 PM EDT [facility] Comment on above: Order Comment: [...] BY SANA BHAGAT, ON 08/25/2024 11:11:47 Normal [facility] ED Prov Noteon 08-25-2024 [facility] Attending Note: NAME: Mikayla Sotelo 34 y.o. CSN: [id number] PCP: Miguel A Whitehead CNP History: Chief [...] arrest. At that time he told the motorcycle police he had just developed chest pain and [...] being discharged to home Sana Bhagat MD [facility] Emergency Department (Please note that portions of [...] BY SANA BHAGAT, ON 08/25/2024 11:42:16 Normal [facility] TROPONIN (ONCE)on 08-25-2024 BASELINE TROPONIN T NG/L < Normal <=22 [facility] Comment on above: Performed By: #### L [id number] ####[facility] [address], [place] [address] Harrison Evangelista M.D. [id number] TROPONIN T INTERPRETATION Normal Normal [facility] Comment on above: Performed By: #### L [id number] ####[facility] [address], [place] [address] Harrison Evangelista M.D. [id number] XR CHEST PA/APon 08-25-2024 XR CHEST PA/AP [...] Sat Aug 25, 2024 11:37:22 AM EDT [facility] Comment on above: Order Comment: Injur y/Trauma or Illness?:Illness/Other How long have you had these symptoms (acute/chronic)?:Acute Reason for exam?:left side chest pain radiating into left arm. Burning and tingling in left hand. History of cancer?:Unknown Surgeries, chemotherapy, or radiation?:Unknown Type of Exam?:Initial Additional signs and symptoms?:Previous HX of left clavicle fracture ED Prov Noteon 06-10-2024 ED Prov Note ED PROVIDER NOTE [facility] EMERGENCY DEPARTMENT NAME: Mikayla Sotelo AGE: 34 y.o. : 1990 VISIT DATE: 06/10/2024 CSN: [id number] PCP: Miguel A Whitehead, SANDRA Chief Complaint Patient presents with Shoulder Pain RIGHT 34-year-old male presents here today complaining of right shoulder pain. Patient describes having a remote injury of his right shoulder while in correction 3 years ago. He describes having some [...] Surgery Why: If symptoms not improved [address] [facility] [phone] Contact information for after-discharge care Follow-up information has not been specified. New Prescriptions meloxicam (MOBIC) 7.5 MG tablet Take 1 (one) tablet (7.5 mg total) by mouth daily . Marc Connelly MD 06/10/248 [1] Social History Socioeconomic History Marital status: Tobacco Use Smoking status: Every Day Current packs/day: 0.50 Types: Cigarettes Smokeless tobacco: Never Vaping Use Vaping s (more content not included)... [facility] XR CHEST AP/PA AND LATon XR CHEST [...] ID: [id number] Dictated by: LESTER MCKAY on Vardaman Jun 10, 2024 10:05:13 PM EDT Transcribed by: LESTER MCKAY on [employer]ard[employer] Jun 10, 2024 10:05:13 PM EDT Finalized by: LESTER MCKAY on [employer]ard[employer] Jun 10, 2024 10:05:13 PM EDT [facility] Comment on above: Order Comment: [...] [id number] Dictated by: PAULO NESBITT V on Vardaman Jun 10, 2024 11:43:10 PM EDT Transcribed by: PAULO NESBITT V on [employer] Jun 10, 2024 11:43:10 PM EDT Finalized by: PAULO NESBITT V on Vard[employer] Jun 10, 2024 11:43:10 PM EDT [facility] Comment on above: Order Comment: [...] Mikayla Sotelo Admit Date: 03/11/2024 MR #: [id number] : 1990 Assessment Mikayla Sotelo is a [...] History Living situation: has friends who will alf him 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 Family counseled on [...] Intact C (more content not included)... Normal [facility] ACETAMINOPHEN LEVELon 2024 ACETAMINOPHEN < Normal 0.0-30.0 [facility] Comment on above: Order Comment: Thera peutic Range: 10-30 mcg/mLPotentially Toxic: >200 mcg/mL (4 hours post dose) >100 mcg/mL (8 hours post dose) >50 mcg/mL (12 hours post dose) Performed By: #### 4 [id number] ####[facility] [address], [place] [address] Harrison Evangelista M.D. [id number] ALCOHOL, MEDICALon ALCOHOL MEDICAL < Normal <10.0 [facility] Comment on above: Result Comment: Alco hol cutoff: <10.00 mg/dL = None Detected Performed By: #### 4 [id number] ####[facility] [address], [place] [address] Harrison Evangelista M.D. [id number] Acetaminophen Levelon 2024 Acetaminophen [Mass/Vol] [facility] Acetaminophen [Mass/Vol]on 0 03-11-2024 Interpretation and review of laboratory results Normal [facility] Therapeutic Range: 10-30 mcg/mL Potentially Toxic: >200 mcg/mL (4 hours post dose) >100 mcg/mL (8 hours post dose) >50 mcg/mL (12 hours post dose) [facility] Alcohol LevelOrdered By: Radha Lopez on 03-11-2024 Ethanol [Mass/Vol] mg/dL NINF - 10 .0 mg/dL [facility] Comment on above: Alcohol cutoff: <10. 00 mg/dL = None Detected Basic metabolic 1998 panelon 03-11-2024 Anion gap [Moles/Vol] 14 mmol/L 10 - 2 0 mmol/L [facility] Chloride [Moles/Vol] 100 mmol/L 98 - 10 8 mmol/L [facility] Creatinine [Mass/Vol] 1.03 mg/dL 0.50 - 1.30 mg/dL [facility] GFR/1.73 sq M.predicted CKD-EPI (S/P/Bld) [Vol rate/Area] 98 - PINF [facility] Comment on above: Estimated GFR was ca lculated using the 2020 CKD-EPI creatinine equation. Glucose [Mass/Vol] 94 mg/dL 65 - 99 mg/dL [facility] HCO3 [Moles/Vol] 29 mmol/L 21 - 32 mmol/L [facility] Interpretation and review of laboratory results Normal [facility] Potassium [Moles/Vol] 3.9 mmol/L 3.5 - 5.1 mmol/L [facility] Sodium [Moles/Vol] 139 mmol/L 135 - 145 mmol/L [facility] Urea nitrogen [Mass/Vol] 13 mg/dL 8 - 25 mg/dL [facility] Urea nitrogen/Creatinine [Mass ratio] 12.6 mg/mg 10.0 - 20.0 [facility] Laborator y Services has implemented the eGFR calculation approach that does not have a coefficient for race that conforms to the NKF-ASN Task Force Recommendations. [facility] CBC Auto Differentialon 02-15 Basophils (Bld) [#/Vol] 0.01 10*3/uL [facility] Basophils/100 WBC (Bld) 0.1 % [facility] Eosinophils (Bld) [#/Vol] 0.02 10*3/uL [facility] Eosinophils/100 WBC (Bld) 0.2 % [facility] Erythrocyte distribution width (RBC) [Entitic vol] 12.3 % 11.6 - 14.8 % [facility] Hematocrit (Bld) [Volume fraction] 53.5 % High 41.0 - 53.0 % [facility] Hemoglobin (Bld) [Mass/Vol] 18.2 g/dL High 13.5 - 17.5 g/dL [facility] Immature granulocytes (Bld) [#/Vol] 0.08 10*3/uL [facility] Immature granulocytes/100 WBC (Bld) 0.8 % [facility] Comment on above: The IG parameter is the percentage of metamyelocytes, myelocytes and promyelocytes. An immature granulocyte count (IG) of 1% or more suggests the possibility of infection, an IG count of 3% is very likely related to an infection. Interpretation and review of laboratory results Abnormal [facility] Lymphocytes (Bld) [#/Vol] 1.45 10*3/uL [facility] Lymphocytes/100 WBC (Bld) 13.8 % [facility] MCH (RBC) [Entitic mass] 29.8 pg 26.0 - 34.0 pg [facility] MCHC (RBC) [Mass/Vol] 34 g/dL 31.0 - 37.0 g/dL [facility] MCV (RBC) [Entitic vol] 87.7 fL 80.0 - 100.0 fL [facility] Monocytes (Bld) [#/Vol] 1.06 10*3/uL High [facility] Monocytes/100 WBC (Bld) 10.1 % [facility] Neutrophils (Bld) [#/Vol] 7.92 10*3/uL High [facility] Neutrophils/100 WBC (Bld) 75 % [facility] Nucleated RBC (Bld) [#/Vol] 0 10*3/uL [facility] Nucleated RBC/100 WBC (Bld) [Ratio] 0 % [facility] Platelet mean volume (Bld) [Entitic vol] 8.8 fL Low 9.4 - 12.4 fL [facility] Platelets (Bld) [#/Vol] 217 10*3/uL [facility] RBC (Bld) [#/Vol] 6.1 10*6/uL High [facility] alth WBC (Bld) [#/Vol] 10.54 10*3/uL [facility] CBC WITH AUTO DIFFERENTIALon 03-11-2024 AUTO NRBC 0.0 % Normal [facility] Comment on above: Performed By: #### L [id number] #### LAB [address] [place] [address] Harrison Evangelista M.D. [id number] AUTO NRBC ABS COUNT 0.00 K/mcL Normal 0.00-0.00 [facility] Comment on above: Performed By: #### L [id number] #### LAB [address] [place] [address] Harrison Evangelista M.D. [id number] BASOPHILS ABSOLUTE COUNT 0.01 K/mcL Normal 0.00-0.30 [facility] Comment on above: Performed By: #### L [id number] #### LAB [address] [place] [address] Harrison Evangelista M.D. [id number] Basophils/100 WBC (Bld) 0.1 % Normal [facility] Comment on above: Performed By: #### L [id number] #### LAB [address] [place] [address] Harrison Evangelista M.D. [id number] Eosinophils (Bld) [#/Vol] 0.02 10*3/uL Normal 0.00-0.50 [facility] Comment on above: Performed By: #### L [id number] #### [facility] [address] [place] [address] Harrison Evangelista M.D. [id number] Eosinophils/100 WBC (Bld) 0.2 % Normal [facility] Comment on above: Performed By: #### L [id number] #### LAB [address] [place] [address] Harrison Evangelista M.D. [id number] Erythrocyte distribution width (RBC) [Ratio] 12.3 % Normal 11.6-14.8 [facility] Comment on above: Performed By: #### L [id number] #### LAB [address] [place] [address] Harrison Evangelista M.D. [id number] Hematocrit (Bld) [Volume fraction] 53.5 % High 41.0-53.0 [facility] Comment on above: Performed By: #### L [id number] #### LAB [address] [place] [address] Harrison Evangelista M.D. [id number] Hemoglobin (Bld) [Mass/Vol] 18.2 g/dL High 13.5-17.5 [facility] Comment on above: Performed By: #### L [id number] #### [facility] [address] [place] [address] Harrison Evangelista M.D. [id number] IG ABSOLUTE 0.08 K/mcL Normal 0.00-0.30 [facility] Comment on above: Performed By: #### L [id number] #### LAB [address] [place] [address] Harrison Evangelista M.D. [id number] IG PERCENT 0.80 % Normal [facility] Comment on above: Result Comment: The IG parameter is the percentage of metamyelocytes, myelocytes and promyelocytes. An immature granulocyte count (IG) of 1% or more suggests the possibility of infection, an IG count of 3% is very likely related to an infection. Performed By: #### L [id number] #### LAB [address] [place] [address] Harrison Evangelista M.D. [id number] Lymphocytes (Bld) [#/Vol] 1.45 10*3/uL Normal 0.90-4.00 [facility] Comment on above: Performed By: #### L [id number] #### LAB [address] [place] [address] Harrison Evangelista M.D. [id number] Lymphocytes/100 WBC (Bld) 13.8 % Normal [facility] Comment on above: Performed By: #### L [id number] #### LAB [address] [place] [address] Harrison Evangelista M.D. [id number] MCH (RBC) [Entitic mass] 29.8 pg Normal 26.0-34.0 [facility] Comment on above: Performed By: #### L [id number] #### [facility] [address] [place] [address] Harrison Evangelista M.D. [id number] MCV (RBC) [Entitic vol] 87.7 fL Normal 80.0-100.0 [facility] Comment on above: Performed By: #### L [id number] #### LAB [address] [place] [address] Harrison Evangelista M.D. [id number] MEAN CORPUSCULAR HEMOGLOBIN CONC 34.0 g/dL Normal 31.0-37.0 [facility] Comment on above: Performed By: #### L [id number] #### LAB [address] [place] [address] Harrison Evangelista M.D. [id number] Monocytes (Bld) [#/Vol] 1.06 10*3/uL High 0.30-0.90 [facility] Comment on above: Performed By: #### L [id number] #### LAB [address] [place] [address] Harrison Evangelista M.D. [id number] Monocytes/100 WBC (Bld) 10.1 % Normal [facility] Comment on above: Performed By: #### L [id number] #### LAB [address] [place] [address] Harrison Evangelista M.D. [id number] NEUTROPHILS ABSOLUTE COUNT 7.92 K/mcL High 1.70-7.00 [facility] Comment on above: Performed By: #### L [id number] #### LAB [address] [place] [address] Harrison Evangelista M.D. [id number] Neutrophils/100 WBC (Bld) 75.0 % [facility] Comment on above: Performed By: #### L [id number] #### LAB [address] [place] [address] Harrison Evangelista M.D. [id number] Platelet mean volume (Bld) [Entitic vol] 8.8 fL Low 9.4-12.4 [facility] Comment on above: Performed By: #### L [id number] #### LAB [address] [place] [address] Harrison Evangelista M.D. [id number] Platelets (Bld) [#/Vol] 217 10*3/uL Normal 150-400 [facility] Comment on above: Performed By: #### L [id number] #### LAB [address] [place] [address] Harrison Evangelista M.D. [id number] RBC (Bld) [#/Vol] 6.10 10*6/uL High 4.50-5.90 [facility] Comment on above: Performed By: #### L [id number] #### LAB [address] [place] [address] Harrison Evangelista M.D. [id number] WBC (Bld) [#/Vol] 10.54 10*3/uL Normal 4.50-11.00 [facility] Comment on above: Performed By: #### L [id number] #### LAB [address] [place], [place] [address] Harrison Evangelista M.D. [id number] CHEM 703-11-2024 Anion gap [Moles/Vol] 14 mmol/L Normal 10-20 [facility] Comment on above: Order Comment: [facility] Services has implemented the eGFR calculation approach that does not have a coefficient for race that conforms to the NKF-ASN Task Force Recommendations. Performed By: #### 4 6953 ####[facility] [address] [place], [place] [address] Harrsion Evangelista M.D. [id number] Chloride [Moles/Vol] 100 mmol/L Normal 98-108 [facility] Comment on above: Order Comment: [facility] Laboratory [facility] has implemented the eGFR calculation approach that does not have a coefficient for race that conforms to the NKF-ASN Task Force Recommendations. Performed By: #### 4 6953 #### LAB [address] [place], [place] [address] Harrison Evangelista M.D. [id number] Creatinine [Mass/Vol] 1.03 mg/dL Normal 0.50-1.30 [facility] Comment on above: Order Comment: [facility] Services has implemented the eGFR calculation approach that does not have a coefficient for race that conforms to the NKF-ASN Task Force Recommendations. Performed By: #### 4 6953 ####[facility] [address] [place], [place] [address] Harrison Evangelista M.D. [id number] EGFR 98 mL/min/1.73 m2 Normal >=60 [facility] Comment on above: Order Comment: [facility] Services has implemented the eGFR calculation approach that does not have a coefficient for race that conforms to the NKF-ASN Task Force Recommendations. Result Comment: Marisol mated GFR was calculated using the 2020 CKD-EPI creatinine equation. Performed By: #### 4 6953 ####[facility] [address] [place] [address] Harrison Evangelista M.D. [id number] Glucose [Mass/Vol] 94 mg/dL Normal 65-99 [facility] Comment on above: Order Comment: [facility] Services has implemented the eGFR calculation approach that does not have a coefficient for race that conforms to the NKF-ASN Task Force Recommendations. Performed By: #### 4 6953 ####[facility] [address] [place] [address] Harrison Evangelista M.D. [id number] HCO3 (Bld) [Moles/Vol] 29 mmol/L Normal 21-32 [facility] Comment on above: Order Comment: [facility] Services has implemented the eGFR calculation approach that does not have a coefficient for race that conforms to the NKF-ASN Task Force Recommendations. Performed By: #### 4 [id number] #### LAB [address] [place] [address] Harrison Evangelista M.D. [id number] Potassium [Moles/Vol] 3.9 mmol/L Normal 3.5-5.1 [facility] Comment on above: Order Comment: [facility] Services has implemented the eGFR calculation approach that does not have a coefficient for race that conforms to the NKF-ASN Task Force Recommendations. Performed By: #### 4 6953 ####[facility] [address] [place] [address] Harrison Evangelista M.D. [id number] Sodium [Moles/Vol] 139 mmol/L Normal 135-145 [facility] Comment on above: Order Comment: [facility] Services has implemented the eGFR calculation approach that does not have a coefficient for race that conforms to the NKF-ASN Task Force Recommendations. Performed By: #### 4 6953 ####[facility] [address] [place] [address] Harrison Evangelista M.D. [id number] Urea nitrogen [Mass/Vol] 13 mg/dL Normal 8-25 [facility] Comment on above: Order Comment: [facility] Services has implemented the eGFR calculation approach that does not have a coefficient for race that conforms to the NKF-ASN Task Force Recommendations. Performed By: #### 4 6953 #### LAB [address] [place], [place] [address] Harrison Evangelista M.D. [id number] Urea nitrogen/Creatinine [Mass ratio] 12.6 mg/mg Normal 10.0-20.0 [facility] Comment on above: Order Comment: [facility] Services has implemented the eGFR calculation approach that does not have a coefficient for race that conforms to the NKF-ASN Task Force Recommendations. Performed By: #### 4 6953 #### LAB [address] [place], [place] [address] Harrison Evangleista M.D. [id number] COVID-19/INFLUENZA A,B MOLEC ULARon 03-11-2024 SARS-CoV-2 (COVID-19) Ab IA Ql SARS-COV-2 (CECILIA) Detected INFLUENZA A (CECILIA) Not Detected INFLUENZA B (CECILIA) Not Detected Abnormal Not Detected [facility] Comment on above: Performed By: #### L [id number] #### LAB [address] [place], [place] [address] Harrison Evangelista M.D. [id number] CT ANGIOGRAM HEAD NECKon CT ANGIOGRAM HEAD [...] 3D reconstructions were obtained on an independent [employer] workstation. Carotid stenosis is reported according to [...] stenosis. 4. No acute cervical spine fracture. [employer] Workstation ID: [id number] Dictated by: ESA MONTOYA on Vardaman Mar 11, 2024 5:09:27 PM EST Transcribed by: NATO ANTOINE on Vard[employer] Mar 11, 2024 5:43:10 PM EST Finalized by: ESA MONTOYA on [employer] Mar 11, 2024 9:44:25 PM EST Normal [facility] Comment on above: Order Comment: [...] stenosis. 4. No acute cervical spine fracture. [employer] Workstation ID: [id number] [employer] [facility] EXAMINATION: CT ANGIOGRAM HEAD NECK [...] 3D reconstructions were obtained on an independent [employer] workstation. Carotid stenosis is reported according to [...] No laryngeal edema. No masses. No lymphadenopathy. [facility] Esa Montoya MD - 03/11/2024 EXAMINATION: CT [...] 3D reconstructions were obtained on an independent [employer] workstation. Carotid stenosis is reported according to [...] cervical spine fracture. [employer] Workstation ID: [id number] [facility] Radiology Study observation (narrative) [facility] CTA Head vessels and Neck ve ssels W contrast IVOrdered By: Esa Montoya on 03-11-2024 [facility] Work Phone: DRUGS OF ABUSE SCREEN, URINE on 03-11-2024 AMPHETAMINE SCREEN, URINE Positive Abnormal None Detected [facility] Comment on above: Order Comment: Scree n results should be used for treatment purposes only. Specimen will be kept for 2 weeks, if the sample is adequate. Confirmation testing can be initiated by calling the lab within 2 weeks. Result Comment: Urin e Amphetamine Cutoff: < 1000 ng/mL = None Detected Performed By: #### 4 [id number] #### LAB [address], [place] [address] Harrison Evangelista M.D. [id number] BARBITURATE SCREEN URINE Not detected Normal None Detected [facility] Comment on above: Order Comment: Scree n results should be used for treatment purposes only. Specimen will be kept for 2 weeks, if the sample is adequate. Confirmation testing can be initiated by calling the lab within 2 weeks. Result Comment: Urin e Barbiturates Cutoff: < 200 ng/mL = None Detected Performed By: #### 4 [id number] #### [facility] [address] [place] [address] Harrison Evangelista M.D. [id number] BENZODIAZEPINE SCREEN, URINE Not detected Normal None Detected [facility] Comment on above: Order Comment: Scree n results should be used for treatment purposes only. Specimen will be kept for 2 weeks, if the sample is adequate. Confirmation testing can be initiated by calling the lab within 2 weeks. Result Comment: Urin e Benzodiazepine Cutoff: < 200 ng/mL = None Detected Performed By: #### 4 [id number] #### LAB [address] [place] [address] Harrison Evangelista M.D. [id number] BUPRENORPHINE, URINE Not detected Normal None Detected [facility] Comment on above: Order Comment: Scree n results should be used for treatment purposes only. Specimen will be kept for 2 weeks, if the sample is adequate. Confirmation testing can be initiated by calling the lab within 2 weeks. Result Comment: Urin e Buprenorphine Cutoff: < 5 ng/mL = None Detected Performed By: #### 4 [id number] #### [facility] [address] [place] [address] Harrison Evangelista M.D. [id number] CANNABINOID SCREEN URINE Positive Abnormal None Detected [facility] Comment on above: Order Comment: Scree n results should be used for treatment purposes only. Specimen will be kept for 2 weeks, if the sample is adequate. Confirmation testing can be initiated by calling the lab within 2 weeks. Result Comment: Urin e Cannabinoids Cutoff: < 50 ng/mL = None Detected Performed By: #### 4 [id number] #### [facility] [address] [place] [address] Harrison Evangelista M.D. [id number] COCAINE, SCREEN URINE Not detected Normal None Detecte d [facility] Comment on above: Order Comment: Scree n results should be used for treatment purposes only. Specimen will be kept for 2 weeks, if the sample is adequate. Confirmation testing can be initiated by calling the lab within 2 weeks. Result Comment: Urin e Cocaine Cutoff: < 300 ng/mL = None Detected Performed By: #### 4 [id number] #### [facility] [address] [place] [address] Harrison Evangelista M.D. [id number] FENTANYL, URINE Not detected Normal None Detected [facility] Comment on above: Order Comment: Scree n results should be used for treatment purposes only. Specimen will be kept for 2 weeks, if the sample is adequate. Confirmation testing can be initiated by calling the lab within 2 weeks. Result Comment: Urin e Fentanyl Cutoff: < 1 ng/mL = None Detected Performed By: #### 4 [id number] #### LAB [address] [place] [address] Harrison Evangelista M.D. [id number] METHADONE SCREEN, URINE Not detected Normal None Detected [facility] Comment on above: Order Comment: Scree n results should be used for treatment purposes only. Specimen will be kept for 2 weeks, if the sample is adequate. Confirmation testing can be initiated by calling the lab within 2 weeks. Result Comment: Urin e Methadone Cutoff: < 300 ng/mL = None Detected Performed By: #### 4 6965 #### MH LAB [address] [address] Harrison Evangelista M.D. [id number] OPIATE SCREEN URINE Not detected Normal None Detected [facility] Comment on above: Order Comment: Scree n results should be used for treatment purposes only. Specimen will be kept for 2 weeks, if the sample is adequate. Confirmation testing can be initiated by calling the lab within 2 weeks. Result Comment: Urin e Opiates Cutoff: < 300 ng/mL = None Detected Performed By: #### 4 6965 #### MH LAB [address] [place] [address] Harrison Evangelista M.D. [id number] OXYCODONE SCREEN, URINE Not detected Normal None Detected [facility] Comment on above: Order Comment: Scree n results should be used for treatment purposes only. Specimen will be kept for 2 weeks, if the sample is adequate. Confirmation testing can be initiated by calling the lab within 2 weeks. Result Comment: Johanna celaya Oxycodone Cutoff: < 100 ng/mL = None Detected Performed By: #### 4 6965 #### LAB [address] [place] [address] Harrison Evangelista M.D. [id number] ED Prov Noteon 03-11-2024 ED Prov Note [facility] EMERGENCY DEPARTMENT ANYLA NOTE: NAME: Mikayla Sotelo CSN: [id number] 33 y.o. PCP: Miguel A Whitehead CNP History: Chief Complaint: Psychiatric Evaluation HPI: The history was obtained from the patient. Mikayla is a 33 y.o. male who presents with a chief complaint of Psychiatric Evaluation. Patient presents to the emergency department via pink slip from [facility] Department after he was found in his [...] Abdominal: General: (more content not included)... Normal [facility] Ethanol [Mass/Vol]Ordered By : Chrystal Lopez on 03-11-2024 Interpretation and review of laboratory results Normal [facility] Influenza virus A and B RNA and SARS-CoV-2 (COVID-19) N gene panel MELISSA+probe (Resp)Ordered By: Nicole Oliveira on 03-11-2024 FLUAV RNA MELISSA+probe Ql (Unsp spec) Not detected Not Detected [facility] FLUBV RNA MELISSA+probe Ql (Unsp spec) Not detected Not Detected [facility] Interpretation and review of laboratory results Abnormal [facility] SARS-CoV-2 (COVID-19) RNA MELISSA+probe Ql (Resp) Detected Abnormal Not Detected [facility] No Panel Informationon 03-11 Extra Tube Hold for add-ons. [facility] Comment on above: Auto resulted. [facility] RAPID STREP SCREENon 025 S. pyogenes Ag IA Ql (Unsp spec) Not detected Normal Not Detected [facility] Comment on above: Order Comment: Test Method: Nucleic Acid Amplification Performed By: #### 4 9591 #### LAB [address] [place], [place] [address] Harrison Evangelista M.D. [id number] S. pyogenes Ag Ql (Throat)on 03-11-2024 Interpretation and review of laboratory results Normal [facility] Strep Group A Molecular Not detected Not Detected [facility] Test Method: Nucleic Acid Amplification [facility] SALICYLATE LEVELon 5 SALICYLATE < Normal 0.0-20.0 [facility] Comment on above: Order Comment: Thera peutic Range: 10-20 mg/dLPotentially Toxic: >30 mg/dL Performed By: #### 4 6472 #### LAB [address] [address] Harrison Evangelista M.D. [id number] Salicylate Levelon 5 Salicylates [Mass/Vol] mg/dL 0.0 - 20.0 mg/dL [facility] Salicylates [Mass/Vol]on Interpretation and review of laboratory results Normal [facility] Therapeutic Range: 10-20 mg/dL Potentially Toxic: >30 mg/dL [facility] TSHon 03-11-2024 TSH Qn 1.35 m[IU]/L Normal 0.27-4.20 [facility] Comment on above: Performed By: #### 4 6613 #### LAB [address] [address] Harrison Evangelista M.D. [id number] TSH DL <= 0.005 mIU/L Qnon 0 03-11-2024 Interpretation and review of laboratory results Normal [facility] TSH Qn 1.35 m[IU]/L [facility] Urine Drug Screenon 03-11-19 25 Amphetamines Ql (U) Positive Abnormal None Detected [facility] Comment on above: Urine Amphetamine Cu toff: < 1000 ng/mL = None Detected Barbiturates Screen Ql (U) Not detected None Detected [facility] Comment on above: Urine Barbiturates C utoff: < 200 ng/mL = None Detected Benzodiazepines Ql (U) Not detected None Detect ed [facility] Comment on above: Urine Benzodiazepine Cutoff: < 200 ng/mL = None Detected Buprenorphine Ql (U) Not detected None Detected [facility] Comment on above: Urine Buprenorphine Cutoff: < 5 ng/mL = None Detected Cannabinoids Screen Ql (U) Positive Abnormal None Detected [facility] Comment on above: Urine Cannabinoids C utoff: < 50 ng/mL = None Detected Cocaine Ql (U) Not detected None Detected [facility] Comment on above: Urine Cocaine Cutoff : < 300 ng/mL = None Detected fentaNYL+Norfentanyl Screen Ql (U) Not detected None Detected [facility] Comment on above: Urine Fentanyl Cutof f: < 1 ng/mL = None Detected Interpretation and review of laboratory results Abnormal [facility] Methadone Screen Ql (U) Not detected None Detected [facility] Comment on above: Urine Methadone Cuto ff: < 300 ng/mL = None Detected Opiates Screen Ql (U) Not detected None Detecte d [facility] Comment on above: Urine Opiates Cutoff : [...] by calling the lab within 2 weeks. [facility] CBC WITH AUTO DIFFERENTIALon 02-11-2024 BASOPHILS ABSOLUTE COUNT 0.00 K/mcL Normal 0.00-0.30 [facility] Comment on above: Performed By: #### L [id number] #### SH LAB [address] [place] [address] Harrison Evangelista M.D. [id number] Basophils/100 WBC (Bld) 0.0 % Normal [facility] Comment on above: Performed By: #### L [id number] #### SH LAB [address] [place] [address] Harrison Evangelista M.D. [id number] Eosinophils (Bld) [#/Vol] 0.00 10*3/uL Normal 0.00-0.50 [facility] Comment on above: Performed By: #### L [id number] #### SH LAB [address] [place] [address] Harrison Evangelista M.D. [id number] Eosinophils/100 WBC (Bld) 0.0 % [facility] Comment on above: Performed By: #### L [id number] #### SH LAB [address] [place], [place] [id number] Harrison Evangelista M.D. [id number] Erythrocyte distribution width (RBC) [Ratio] 12.5 % Normal 11.6-14.8 [facility] Comment on above: Performed By: #### L [id number] #### [facility] LAB [address] [place] [address] Harrison Evangelista M.D. [id number] Hematocrit (Bld) [Volume fraction] 48.9 % Normal 41.0-53.0 [facility] Comment on above: Performed By: #### L [id number] #### SH LAB [address] [place] [address] Harrison Evangelista M.D. [id number] Hemoglobin (Bld) [Mass/Vol] 16.5 g/dL Normal 13.5-17.5 [facility] Comment on above: Performed By: #### L [id number] #### [address] [address] Harrison Evangelista M.D. [id number] IG ABSOLUTE 0.07 K/mcL Normal 0.00-0.30 [facility] Comment on above: Performed By: #### L [id number] #### [address] [place] [address] Harrison Evangelista M.D. [id number] IG PERCENT 0.90 % Normal [facility] Comment on above: Result Comment: The IG parameter is the percentage of metamyelocytes, myelocytes and promyelocytes. An immature granulocyte count (IG) of 1% or more suggests the possibility of infection, an IG count of 3% is very likely related to an infection. Performed By: #### L [id number] #### SH LAB [address] [place] [address] Harrison Evangelista M.D. [id number] Lymphocytes (Bld) [#/Vol] 2.74 10*3/uL Normal 0.90-4.00 [facility] Comment on above: Performed By: #### L [id number] #### [address] [place] [address] Harrison Evangelista M.D. [id number] Lymphocytes/100 WBC (Bld) 34.0 % Normal [facility] Comment on above: Performed By: #### L [id number] #### SH LAB [address] [place] [address] Harrison Evangelista M.D. [id number] MCH (RBC) [Entitic mass] 30.3 pg Normal 26.0-34.0 [facility] Comment on above: Performed By: #### L [id number] #### SH LAB [address] [place] [address] Harrison Evangelista M.D. [id number] MCV (RBC) [Entitic vol] 89.7 fL Normal 80.0-100.0 [facility] Comment on above: Performed By: #### L [id number] #### SH LAB [address] [place] [address] Harrison Evangelista M.D. [id number] MEAN CORPUSCULAR HEMOGLOBIN CONC 33.7 g/dL Normal 31.0-37.0 [facility] Comment on above: Performed By: #### L [id number] #### SH LAB [address] [place] [address] Harrison Evangelista M.D. [id number] Monocytes (Bld) [#/Vol] 0.96 10*3/uL High 0.30-0.90 [facility] Comment on above: Performed By: #### L [id number] #### SH LAB [address] [place] [address] Harrison Evangelista M.D. [id number] Monocytes/100 WBC (Bld) 11.9 % Normal [facility] Comment on above: Performed By: #### L [id number] #### SH LAB [address] [place] [address] Harrison Evangelista M.D. [id number] NEUTROPHILS ABSOLUTE COUNT 4.30 K/mcL Normal 1.70-7.00 [facility] Comment on above: Performed By: #### L [id number] #### SH LAB [address] [place] [address] Harrison Evangelista M.D. [id number] Neutrophils/100 WBC (Bld) 53.2 % Normal [facility] Comment on above: Performed By: #### L [id number] #### SH LAB [address] [place] [address] Harrison Evangelista M.D. [id number] Platelet mean volume (Bld) [Entitic vol] 8.5 fL Low 9.4-12.4 [facility] Comment on above: Performed By: #### L [id number] #### SH LAB [address] [place], [place] [address] Harrison Evangelista M.D. [id number] Platelets (Bld) [#/Vol] 207 10*3/uL Normal 150-400 [facility] Comment on above: Performed By: #### L [id number] #### SH LAB [address] [place] [address] Harrison Evangelista M.D. [id number] RBC (Bld) [#/Vol] 5.45 10*6/uL Normal 4.50-5.90 [facility] Comment on above: Performed By: #### L [id number] #### SH LAB [address] [place], [place] [address] Harrison Evangelista M.D. [id number] WBC (Bld) [#/Vol] 8.07 10*3/uL Normal 4.50-11.00 [facility] Comment on above: Performed By: #### L [id number] #### SH LAB [address] [place] [address] Harrison Evangelista M.D. [id number] COMPREHENSIVE METABOLIC PANE [facility] 02-11-2024 Albumin [Mass/Vol] 4.3 g/dL Normal 3.2-5.2 [facility] Comment on above: Order Comment: [facility] has implemented the eGFR calculation approach that does not have a coefficient for race that conforms to the NKF-ASN Task Force Recommendations. Performed By: #### 4 6126 #### SH LAB [address] [place] [address] Harrison Evangelista M.D. [id number] ALP [Catalytic activity/Vol] 103 U/L Normal 40-140 [facility] Comment on above: Order Comment: [facility] has implemented the eGFR calculation approach that does not have a coefficient for race that conforms to the NKF-ASN Task Force Recommendations. Performed By: #### 4 6126 #### SH [place] [address] Harrison Evangelista M.D. [id number] ALT [Catalytic activity/Vol] 37 U/L Normal 0-50 U/L [facility] Comment on above: Order Comment: [facility] has implemented the eGFR calculation approach that does not have a coefficient for race that conforms to the NKF-ASN Task Force Recommendations. Performed By: #### 4 6126 #### SH [place] [address] Harrison Evangelista M.D. [id number] Anion gap [Moles/Vol] 12 mmol/L Normal 10-20 [facility] Comment on above: Order Comment: [facility] has implemented the eGFR calculation approach that does not have a coefficient for race that conforms to the NKF-ASN Task Force Recommendations. Performed By: #### 4 6126 #### [place] [address] Harrison Evangelista M.D. [id number] AST [Catalytic activity/Vol] 28 U/L Normal 0-50 U/L [facility] Comment on above: Order Comment: [facility] has implemented the eGFR calculation approach that does not have a coefficient for race that conforms to the NKF-ASN Task Force Recommendations. Performed By: #### 4 6126 #### SH [place] [address] Harrison Evangelista M.D. [id number] Bilirubin [Mass/Vol] 0.3 mg/dL Normal 0.0-1.3 [facility] Comment on above: Order Comment: [facility] has implemented the eGFR calculation approach that does not have a coefficient for race that conforms to the NKF-ASN Task Force Recommendations. Performed By: #### 4 6126 #### SH [place] [address] Harrison Evangelista M.D. [id number] Calcium [Mass/Vol] 9.4 mg/dL Normal 8.4-10.2 [facility] Comment on above: Order Comment: [facility] has implemented the eGFR calculation approach that does not have a coefficient for race that conforms to the NKF-ASN Task Force Recommendations. Performed By: #### 4 6126 #### SH LAB [address] [place] [address] Harrison Evangelista M.D. [id number] Chloride [Moles/Vol] 104 mmol/L Normal 98-108 [facility] Comment on above: Order Comment: [facility] has implemented the eGFR calculation approach that does not have a coefficient for race that conforms to the NKF-ASN Task Force Recommendations. Performed By: #### 4 6126 #### SH [address] [address] Harrison Evangelista M.D. [id number] Creatinine [Mass/Vol] 1.05 mg/dL Normal 0.50-1.30 [facility] Comment on above: Order Comment: [facility] has implemented the eGFR calculation approach that does not have a coefficient for race that conforms to the NKF-ASN Task Force Recommendations. Performed By: #### 4 6126 #### LAB [address] [place] [address] Harrison Evangelista M.D. [id number] EGFR 96 mL/min/1.73 m2 Normal >=60 [facility] Comment on above: Order Comment: [facility] has implemented the eGFR calculation approach that does not have a coefficient for race that conforms to the NKF-ASN Task Force Recommendations. Result Comment: Marisol mated GFR was calculated using the 2020 CKD-EPI creatinine equation. Performed By: #### 4 6126 #### SH LAB [address] [place] [address] Harrison Evangelista M.D. [id number] Glucose [Mass/Vol] 82 mg/dL Normal 65-99 [facility] Comment on above: Order Comment: [facility] has implemented the eGFR calculation approach that does not have a coefficient for race that conforms to the NKF-ASN Task Force Recommendations. Performed By: #### 4 6126 #### LAB [address] [place] [address] Harrison Evangelista M.D. [id number] HCO3 (Bld) [Moles/Vol] 28 mmol/L Normal 21-32 [facility] Comment on above: Order Comment: [facility] has implemented the eGFR calculation approach that does not have a coefficient for race that conforms to the NKF-ASN Task Force Recommendations. Performed By: #### 4 6126 #### [place] [id number] Harrison Evangelista M.D. [id number] Potassium [Moles/Vol] 3.6 mmol/L Normal 3.5-5.1 [facility] Comment on above: Order Comment: [facility] has implemented the eGFR calculation approach that does not have a coefficient for race that conforms to the NKF-ASN Task Force Recommendations. Performed By: #### 4 6126 #### [place] [address] Harrison Evangelista M.D. [id number] Protein [Mass/Vol] 7.0 g/dL Normal 6.0-8.0 [facility] Comment on above: Order Comment: [facility] has implemented the eGFR calculation approach that does not have a coefficient for race that conforms to the NKF-ASN Task Force Recommendations. Performed By: #### 4 6126 #### [place] [id number] Harrison Evangelista M.D. [id number] Sodium [Moles/Vol] 140 mmol/L Normal 135-145 [facility] Comment on above: Order Comment: [facility] has implemented the eGFR calculation approach that does not have a coefficient for race that conforms to the NKF-ASN Task Force Recommendations. Performed By: #### 4 6126 #### SH [place] [address] Harrison Evangelista M.D. [id number] Urea nitrogen [Mass/Vol] 14 mg/dL Normal 8-25 [facility] Comment on above: Order Comment: [facility] has implemented the eGFR calculation approach that does not have a coefficient for race that conforms to the NKF-ASN Task Force Recommendations. Performed By: #### 4 6126 #### SH LAB [address] [place] [address] Harrison Evangelista M.D. [id number] Urea nitrogen/Creatinine [Mass ratio] 13.3 mg/mg Normal 10.0-20.0 [facility] Comment on above: Order Comment: [facility] has implemented the eGFR calculation approach that does not have a coefficient for race that conforms to the NKF-ASN Task Force Recommendations. Performed By: #### 4 6126 #### SH LAB [address] [place] [address] Harrison Evangelista M.D. [id number] D-DIMER, QUANTITATIVEon 01-15 D-DIMER QUANTITATIVE < Normal 0.27-0.49 [facility] Comment on above: Order Comment: A D-d [...] By: #### 4 5434 #### SH LAB [address] [place] [address] Harrison Evangelista M.D. [id number] ED Prov Noteon 02-11-2024 ED Prov Note ED PROVIDER NOTE [facility] EMERGENCY DEPART[facility] NAME: Mikayla Sotelo AGE: 33 y.o. : 1990 VISIT DATE: 02/11/2024 CSN: [id number] PCP: Miguel A Whitehead, SNADRA Chief Complaint Patient presents with Chest Pain [...] above: Performed By: #### 4 6086 #### [address] [address] Harrison Evangelista M.D. [id number] PT/INRon 02-11-2024 INR Coag (PPP) [Relative time] [...] Performed By: #### 4 6391 #### SH [address] [address] Harrison Evangelista M.D. [id number] PT Coag (PPP) [Time] 13.2 s Normal 11.8-14.3 [facility] Comment on above: Order Comment: Ashley carmichael the induction phase of oral anticoagulation, the INR may not reflect the anticoagulation status of the patient. Therapeutic ranges for INR's are: Most clinical situations: INR 2.0-3.0 Mechanical Prosthetic Valve: INR 2.5-3.5 Critical: INR >5.0 Performed By: #### 4 6391 #### SH [address] [address] Harrison Evangelista M.D. [id number] TROPONINon 02-11-2024 BASELINE TROPONIN T NG/L < Normal <=22 [facility] Comment on above: Performed By: #### 4 6608 #### SH LAB [address] [place], [place] [address] Harrison Evangelista M.D. [id number] TROPONIN T INTERPRETATION Normal Normal [facility] Comment on above: Performed By: #### 4 6608 #### SH LAB [address] [place], [place] [address] Harrison Evangelista M.D. [id number] XR CHEST PA/APon 02-11-2024 XR CHEST PA/AP [...] using Betadine. Rubber band tourniquet was applied. [place] elevator was used to free the nail [...] Response to Treatment:: Procedure was tolerated well [facility] XR FOOT RIGHT 3+ VIEWS (ISAIAS DARBelgica)on 02-01-2024 XR FOOT RIGHT 3+ VIEWS (STANDARD) 3 views of the right foot reviewed today AP MO and lateral. No acute fracture or dislocation of note. No evidence of cortical erosion or subcutaneous emphysema.. Dictated by: ELLIE MONTERROSO on Daina Feb 02, 2024 8:17:18 AM EST Transcribed by: ELLIE MONTERROSO on [facility] Feb 02, 2024 8:17:18 AM EST Finalized by: ELLIE MONTERROSO on [facility] Feb 02, 2024 8:17:18 AM EST Normal [facility] Comment on above: Order Comment: Injur y/Trauma or Illness?:Illness/Other How long have you had these symptoms (acute/chronic)?:Unknown Reason for exam?:Right great toe pain History of cancer?:Unknown Surgeries, chemotherapy, or radiation?:Unknown Type of Exam?:Initial Additional signs and symptoms?:Right great toe pain ED Prov Noteon 01-30-2024 ED Prov Note ED PROVIDER NOTE [facility] EM[facility] NAME: Mikayla Sotelo AGE: 33 y.o. : 1990 VISIT DATE: 01/30/2024 CSN: [id number] PCP: Miguel A Whitehead, SANDRA Chief Complaint [...] Holley DPM. Specialty: Podiatry [address] [id number] Contact information for after-discharge care Follow-up information has not been specified. New Prescriptions sulfamethoxazole-trim ethoprim (BACTRIM DS,SEPTRA DS) 800-160 mg per tablet Take 1 (one) tablet by mouth 2 (two) times a day for 7 days . Shelby Duque MD 01/30/24 0507 AUTHENTICATED BY SHELBY DUQUE, ON 01/30/2024 05:07:55 [facility] XR FOOT RIGHT 3+ VIEWS (ISAIAS CASTLE)on [...] ED Prov Noteon 11-21-2023 ED Prov Note [facility] ATTENDING NOTE: NAME: Mikayla Sotelo CSN: [id number] 33 y.o. PCP: Miguel A Whitehead CNP [...] to verify the correct patient, procedure, equipment, collection support specialist and site/side marked as required. Type: abscess [...] second finger. No opaque foreign body. Normal [facility] XR Finger second - right Vie wson [...] swelling, second finger. No opaque foreign body. [facility] Radiology Study observation (narrative) [employer] XR Finger second - right Vie wsOrdered By: Sean Navarro on 07-09-2023 [facility] [employer] [facility] Work Phone: Laceration Repair at the Bed sideOrdered By: Tory Dominique on 07-06-2023 Radiology Study observation (narrative) [employer] [facility] Work Phone: Laceration Repair at the Bed sideon 07-05-2023 MINOR Petersen 07/05/2023 11:49 PM Laceration Repair at the Bedside Performed by: MINOR Petersen Authorized by: MINOR Petersen Jackson Protocol time out called Additional Notes Area prepped and draped in sterile fashion. Anesthetized with 5 mL 1% lidocaine by local infiltration. Six size 5.0 Ethilon sutures placed to the distal aspect of the laceration. The remaining laceration does not require any additional closure. Patient tolerated well. [facility] Laceration Repair at the Bed sideOrdered By: Tory Dominique on 07-05-2023 [facility] Work Phone: Basic metabolic 2000 panelon 02-19-2022 Anion gap [Moles/Vol] 11 mmol/L 10 - 2 0 mmol/L [facility] Calcium [Mass/Vol] 9.3 mg/dL 8.4 - 10. 2 mg/dL [facility] Chloride [Moles/Vol] 107 mmol/L 98 - 10 8 mmol/L [facility] Creatinine [Mass/Vol] 0.87 mg/dL 0.50 - 1.30 mg/dL [facility] GFR/1.73 sq M.predicted CKD-EPI (S/P/Bld) [Vol rate/Area] 118 - PINF [facility] Comment on above: Estimated GFR was ca lculated using the 2020 CKD-EPI creatinine equation. Glucose [Mass/Vol] 85 mg/dL 65 - 99 mg/dL [facility] HCO3 [Moles/Vol] 29 mmol/L 21 - 32 mmol/L [facility] Interpretation and review of laboratory results Normal [facility] Potassium [Moles/Vol] 3.9 mmol/L 3.5 - 5.1 mmol/L [facility] Sodium [Moles/Vol] 143 mmol/L 135 - 145 mmol/L [facility] Urea nitrogen [Mass/Vol] 11 mg/dL 8 - 25 mg/dL [facility] Urea nitrogen/Creatinine [Mass ratio] 12.6 mg/mg 10.0 - 20.0 [facility] Laborator y Services has implemented the eGFR calculation approach that does not have a coefficient for race that conforms to the NKF-ASN Task Force Recommendations. [facility] CBC Auto Differentialon Basophils (Bld) [#/Vol] 0.03 10*3/uL [facility] Basophils/100 WBC (Bld) 0.6 % [facility] Eosinophils (Bld) [#/Vol] 0.11 10*3/uL [facility] Eosinophils/100 WBC (Bld) 2.1 % [facility] Erythrocyte distribution width (RBC) [Entitic vol] 12.9 % 11.6 - 14.8 % [facility] Hematocrit (Bld) [Volume fraction] 46.8 % 41.0 - 53.0 % [facility] Hemoglobin (Bld) [Mass/Vol] 15.7 g/dL 13.5 - 17.5 g/dL [facility] Immature granulocytes (Bld) [#/Vol] 0.02 10*3/uL [facility] Immature granulocytes/100 WBC (Bld) 0.40 % [facility] Comment on above: The IG parameter is the percentage of metamyelocytes, myelocytes and promyelocytes. An immature granulocyte count (IG) of 1% or more suggests the possibility of infection, an IG count of 3% is very likely related to an infection. Interpretation and review of laboratory results Abnormal [facility] Lymphocytes (Bld) [#/Vol] 2.22 10*3/uL [facility] Lymphocytes/100 WBC (Bld) 41.8 % [facility] MCH (RBC) [Entitic mass] 30.5 pg 26.0 - 34.0 pg [facility] MCHC (RBC) [Mass/Vol] 33.5 g/dL 31.0 - 37.0 g/dL [facility] MCV (RBC) [Entitic vol] 91.1 fL 80.0 - 100.0 fL [facility] Monocytes (Bld) [#/Vol] 0.55 10*3/uL [facility] Monocytes/100 WBC (Bld) 10.4 % [facility] Neutrophils (Bld) [#/Vol] 2.38 10*3/uL [facility] Neutrophils/100 WBC (Bld) 44.7 % [facility] Nucleated RBC (Bld) [#/Vol] 0.00 10*3/uL [facility] Nucleated RBC/100 WBC (Bld) [Ratio] 0.0 % [facility] Platelet mean volume (Bld) [Entitic vol] 8.6 fL Low 9.4 - 12.4 fL [facility] Platelets (Bld) [#/Vol] 156 10*3/uL [facility] RBC (Bld) [#/Vol] 5.14 10*6/uL [facility] eah WBC (Bld) [#/Vol] 5.31 10*3/uL [facility] eah [facility] Critical Careon 02-19-2022 Aden Ramírez MD 02/19/2022 2:01 PM Critical Care Performed by: Aden Rmaírez MD Authorized by: Aden Ramírez MD Total [...] patient's condition and review of old charts. [facility] UrinalysisOrdered By: Jenn Reyes on 02-19-2022 Bacteria Auto Ql (U) None Seen None Se en /hpf [facility] Bilirubin Ql (U) Negative Negative [facility] Clarity Refractometry automated (U) Clear Clear [facility] Color (U) Dark Yellow Abnormal Colorless, Yellow [facility] Epithelial cells.squamous Auto (Urine sed) [#/Area] [facility] Glucose Auto test strip (U) [Mass/Vol] Negative Negative mg/dL [facility] Hemoglobin Auto test strip Ql (U) Negative Negative [facility] Interpretation and review of laboratory results Abnormal [facility] Ketones (U) [Mass/Vol] Negative Negat shantal mg/dL [facility] Leukocyte esterase Auto test strip Ql (U) Negative [facility] Auto (Urine sed) [#/Area] Rare None Seen, Rare /lpf [facility] Nitrite Auto test strip Ql (U) Negative Negative [facility] pH (U) 6.0 [pH] 5.0 - 7.0 [facility] Protein (U) [Mass/Vol] Negative Negat shantal mg/dL [facility] RBC Auto (Urine sed) [#/Area] 1 [facility] Specific gravity (U) [Rel density] 1.024 1.005 - 1.025 [facility] Urobilinogen (U) [Mass/Vol] mg/dL NINF - 2.0 mg/dL [facility] WBC Auto (Urine sed) [#/Area] 2 [facility] Microscopic examination is performed on all urinalysis samples and only positive findings are reported. The test for blood on the chemical analytic portion of urinalysis may also be positive due to hemoglobinuria and myoglobinuria and if red blood cells are present they are quantified by microscopic examination. [facility] LACERATION REPAIRon 05-12-19 Lg Siddiqi MD 05/11/2020 [...] to verify the correct patient, procedure, equipment, collection support specialist and site/side marked as required. All team [...] procedure well. Total estimated blood loss minimal. [facility] NOVEL CORONAVIRUS NASOPHARYN GEAL - [facility] SPECIMEN ONLYon 07-02-2019 SARS-COV-2 NOT DETECTED Normal NOT DETECTED [facility] Comment on above: Order Comment: Viral transport media (shore hand dredge or barge with pink fluid) - Collection must be [...] by [facility]. This test is used for clinical purposes. [...] or clinically deteriorating. Performed By: #### L [id number] #### [facility] (DEFAULT) [address] [place] [address] Basic Metabolic Panelon 04- Anion gap [Moles/Vol] 12 mmol/L 9 - 17 mmol/L [place] Bun/Cre Ratio 14 [place] Calcium [Mass/Vol] 9.2 mg/dL 8.6 - 10. 4 mg/dL [place] Chloride [Moles/Vol] 101 mmol/L 98 - 10 7 mmol/L [place] CO2 [Moles/Vol] 27 mmol/L 20 - 31 mmol/L [place] Creatinine [Mass/Vol] 0.83 mg/dL 0.7 - 1.2 mg/dL [place] GFR >60 >60 mL/min [place], [place] GFR Non- >60 >60 mL/min [place] Glucose [Mass/Vol] 97 mg/dL 70 - 99 mg/dL [place] Potassium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 [place] Start: 1995 PNEUMOCOCCAL VACCINE SERIES (1 of 2 - PCV) PNEUMOCOCCAL VACCINE SERIES (1 of 2 - PCV) [facility] Start: 1992 History and physical examination, annual for health maintenance Wellness Visit [facility] Start: 1990 Varicella vaccine (1 of 2 - 2-dose childhood series) Varicella vaccine (1 of 2 - 2-dose childhood series) [place], [place] Start: 1989 Hepatitis C screening HEPATITIS C VIRUS SCREENING [facility] Payers Date Payer Category Payer Medicaid [id number] 2023 Medicaid (Managed Care) [employer] COMMUNITY PLAN [id number] 2023 Medicaid [id number] 1989 Unknown [id number]. 356 1989 Unknown [id number] [id number]. 983 1989 Unknown [id number] [id number]. 983 1989 Unknown [id number] [id number]. 983 1989 Unknown [id number] [id number]. 903 1989 Unknown [id number] [id number]. 903 1989 Unknown [id number] [id number]. 903 1989 Unknown [id number] 2.16.840.1.071943.3.579.2. 903 1989 Unknown [id number] 2.16.840.1.583688.3.579.2. 903 1989 Unknown [id number] 2.16.840.1.197026.3.579.2. 903 1989 Unknown [id number] 2.16.840.1.257869.3.579.2. 902 1989 Unknown [id number] 2.16.840.1.845192.3.579.2. 902 1989 Unknown [id number] [id number]. 902 Medicaid [id number] Medicaid [facility] MANAGED [facility] MEDICAID COMMUNITY PLAN xxxxxxxxx Effective for all dates xxxxxxxxx [id number] Medicaid [facility] MANAGED [facility] MEDICAID COMMUNITY PLAN [id number] Effective for all dates [id number] Social History Date Type Detail Facility Start: 10-27-2017 End: 12-14-2021 Tobacco smoking status NHIS Current every day smoker [facility] Start: 1990 Sex Assigned At Not on file O [facility] History of tobacco use [facility] [place] [place] Start: 05-24-2019 End: 03-11-2024 Cigarettes smoked current (pack per day) - Reported [facility] Exposure to SARS-CoV -2 (event) Unable to assess [facility] [place] Start: 05-11-2020 End: 12-14-2021 Tobacco use and exposure Never used [facility] Start: 02-09-2022 End: 02-19-2022 Exposure to SARS-CoV-2 (event) Not sure [facility] Start: 02-19-2022 End: 03-11-2024 Alcohol intake Ex-drinker (finding) [facility] Start: 11-05-2016 End: 07-13-2023 Alcoholic beverage intake Current non-drinker of alcohol (finding) [facility] Start: 04-30-2020 End: 03-11-2024 Tobacco use panel [facility] Start: 11-04-2016 Gender identity Identifies as male gender (finding) [facility] Start: 10-25-2017 Sexual orientation Heterosexual (fin ding) [facility] Clinical Notes 02-19-2022 to 03-13-2024 Jasmine Casey PA-C - 03/13/2024 11:50 AM Ann Rodriguez MD - 03/13/2024 10:57 AM Ann Rodriguez MD - 03/13/2024 10:57 AM Lety Roa RN - 03/13/2024 10:30 AM EST Note Date & Type Note Facility 03-13-2024 Hospital course Narrative [facility] DISCHARGE SUMMARY Mikayla Sotelo Admitted: 03/11/2024 Discharge Date: 03/13/24 PCP Handoff Recommended Outpatient Testing None Results Pending At Discharge None Clinical Summary Mikayla Sotelo is a 33 y.o. male patient of Miguel A Whitehead CNP with history of hepatitis C and history of drug abuse presented to [facility] on 03/11/2024 with suicidal thoughts. Assessment and plan Suicidal Thoughts - resolved Suicidal ideation Consulted psychiatry, appreciate input DC for DE with referral to local addiction recovery resources Polysubstance abuse Referral to addiction medicine, ambulatory; info added to AVS COVID-19 infection Patient tested positive for COVID-19 Patient declined chest x-ray Patient currently on room air Does not qualify for any treatment at this time PRN tylenol/ibuprofen at DE Isolation and self care instructions placed on [...] BACTRIM,SEPTRA Physician(s) Follow Up: You Roach MD [facility] Yunier Nayak [address] [place] [id number] Schedule an appointment as soon as possible for a visit ADDICTION MEDICINE Condition at Discharge: Stable Disposition: Home Time spent on discharge: < 30 minutes Completed by: Jasmine Casey PA-C on 03/13/24, 12:09 PM documented in this encounter [facility] 03-13-2024 Note HMS DISCHARGE Mikayla Murphy Admitted: 03/11/2024 Discharge Date: 03/13/24 PCP Handoff Recommended Outpatient Testing None Results Pending At Discharge None Clinical Summary Mikayla Sotelo is a 33 y.o. male patient of Miguel A Whitehead CNP with history of hepatitis C and history of drug abuse presented to [facility] on 03/11/2024 with suicidal thoughts. Assessment and plan Suicidal Thoughts - resolved Suicidal ideation Consulted psychiatry, appreciate input OK for DE with referral to local addiction recovery resources [...] BACTRIM,SEPTRA Physician(s) Follow Up: You Roach MD [facility] Yunier Nayak [address] [place], [place] [id number] Schedule an appointment as soon as possible for a visit ADDICTION MEDICINE Condition at Discharge: Stable Disposition: Home Time spent on discharge: < 30 minutes Completed by: Jasmine Casey PA-C on 03/13/24, 12:09 PM AUTHENTICATED BY JASMINE CASEY, ON 03/13/2024 12:11:42 [facility] 03-13-2024 Consult note Associated Order (s): IP CONSULT TO BEHAVIORAL HEALTH Behavioral Health Consult Patient Name: Mikayla Sotelo Admit Date: 03/11/2024 [facility] [id number] [id number] 1990 Assessment Mikayla Sotelo is a [...] for an explanation. He also made some camahco on his neck to get her attention. 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 Family counseled on [...] questions. 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 Family counseled on [...] Ann Packer MD 03/13/2024 10:57 AM ED Dairy Bacteriologist Behavioral Health Initial Assessment Date: 03/11/2024 Time: 4:26 PM Patient Name: Mikayla Sotelo Date of : 1990 Sex: Male Admit Date/Time: 03/11/2024 3:05 PM General Information Section Cutter Needs: Not needed Information Provided By: the patient Patient Support System: limited Current Living Arrangements: states he was living with his girlfriend Pat Type of Residence: Private residence Name and Contact of Collateral Provider: [facility] [phone]; unable to reach LEGAL STATUS PD involuntary [...] telehealth while the patient was located at [place] [facility]. The patient was found sitting [...] but wouldn't stop him tomorrow. To the FIRST MATE the patient reported that he was swinging [...] felony drug charges and sent to [facility]. The patient states he has been in and out of [facility] and [facility] 2 Mandaen beliefs: I believe Reynaldo Angelo is our savior. Access to firearms: denied Substance Use History Alcohol: denied Illicit Substance: the patient states he has a long hx of drug use dating back to the age of 9. He reports opiate use until the age of 25, and reports methamphetamine use and cannabis abuse. Treatment: reports treatment through [facility] and reports treatment while in [facility]. Mental Status Evaluation General Appearance: Equal to [...] Conflict Resolution (Coping Skills): (maladaptive) Cultural and Mandaen Beliefs: Yes Access to Weapons: No Risk [...] by: SURINDER Peralta documented in this encounter [facility] 03-13-2024 Emergency department Note Psychiatrist at bedside [facility] 03-13-2024 Emergency department Note Psychiatrist at bedside [...] safety. No HI/SI attempts, nonviolent at present. environmental science technician to room for CXR. Pt refusing [...] safety. No HI/SI attempts, nonviolent at present. finger buffs assembler and [facility] unit made aware of results. [...] from the original note were not included. [facility] EMERGENCY DEPARTMENT NAYLA NOTE: NAME: Mikayla Sotelo CSN: [id number] 33 y.o. PCP: Miguel A Whitehead CNP History: Chief Complaint: Psychiatric Evaluation HPI: The history was obtained from the patient. Mikayla is a 33 y.o. male who presents with a chief complaint of Psychiatric Evaluation. Patient presents to the emergency department via pink slip from [facility] Department after he was found in his [...] - Normal CHEM 7 - Normal Narrative: [facility] Laboratory Services has implemented the eGFR calculation [...] Procedure Abnormality Status --------- ------ CBC Auto Differential[[id number]] Abnormal Final result Please view results for [...] the emergency department via pink slip from [facility] Department after he was found in his [...] Mar 11, [id number] Spoke with Santos barrett 7th grade social studies teacher. She advises that Dr. Schwartz his excepted the patient. Admitting diagnosis is major depression. Admission orders have been placed at this time. [AL] 184 Patient requesting Tylenol for headache. I have placed orders for the Tylenol for his pain relief. [AL] 2035 COVID-19/Influenza A,B Molecular(!) COVID-positive [AL] 2118 Spoke with [facility] about the patient being COVID-positive. Advised him that he was excepted for major depression by Dr. Schwartz. [facility] advises he will place admission orders. He [...] Pandya CNP, CNP ED Advanced Practice Provider [facility] EMERGENCY DEPARTMENT (Please note that portions of this note have been completed with a voice recognition software. Efforts were made to correct any errors, but occasionally words are mis-transcribed.) Luda Pandya CNP 03/11/24 6032 PATIENT PRESENTS TO THE ED FROM HOME WITH [place] [facility] AFTER BEING FOUND IN HIS GARAGE AFTER A POSSIBLE HANGING. PATIENT DENIES ANY SUICIDAL THOUGHTS. documented in this encounter [facility] 03-13-2024 Emergency department Note Pt frustrated. Asking for an update. Updated on plan of care. Educated on pink slip [facility] 03-13-2024 Emergency department Note Pt at nurses station talking on phone. [facility] 03-13-2024 Emergency department Note Breakfast given [facility] 03-13-2024 Emergency department Note Pt taken to shower with security and psa. Now watching tv. Breakfast ordered [facility] 03-13-2024 Emergency department Note Resting in room watching tv. Calm and cooperative [facility] 03-12-2024 Emergency department Note Rounding Assessment: Activity - Resting in bed. CardioRespir - Spontaneous, equal chest rise. Respirs unlabored. Skin - Warm and Dry. Needs/Concerns - Updated on POC. Denies any further needs at this time. Safety - No AMA gown intact. Bed in fixed, low position. Continuous monitoring in place. [facility] 03-12-2024 Emergency department Note Rounding Assessment: Activity - Resting in bed. CardioRespir - Spontaneous, equal chest rise. Respirs unlabored. Skin - Warm and Dry. Needs/Concerns - Updated on POC. Denies any further needs at this time. Safety - No AMA gown intact. Bed in fixed, low position. Continuous monitoring in place. [facility] 03-12-2024 Emergency department Note Rounding Assessment: Activity - Resting in bed. CardioRespir - Spontaneous, equal chest rise. Respirs unlabored. Skin - Warm and Dry. Needs/Concerns - Updated on POC. Denies any further needs at this time. Safety - No AMA gown intact. Bed in fixed, low position. Continuous monitoring in place. [facility] 03-12-2024 Emergency department Note Rounding Assessment: Activity - Resting in bed. CardioRespir - Spontaneous, equal chest rise. Respirs unlabored. Skin - Warm and Dry. Needs/Concerns - Updated on POC. Denies any further needs at this time. Safety - No AMA gown intact. Bed in fixed, low position. Continuous monitoring in place. [facility] 03-12-2024 Note HMS PROGRESS NOTE Assessment and Plan Mikayla Sotelo is a 33 y.o. male patient of Miguel A Whitehead CNP with history of hepatitis C and history of drug abuse presented to [facility] on 03/11/2024 with suicidal thoughts. [...] AUTHENTICATED BY JASMINE CASEY ON 03/12/2024 12:06:33 [facility] 03-12-2024 History of Presen t illness Narrative [facility] PROGRESS NOTE Assessment and Plan Mikayla Sotelo is a 33 y.o. male patient of Miguel A Whitehead CNP with history of hepatitis C and history of drug abuse presented to [facility] on 03/11/2024 with suicidal thoughts. [...] Medications, and Transcriptions documented in this encounter [facility] 03-12-2024 Emergency department Note Breakfast tray delivered to patient. [facility] 03-12-2024 Emergency department Note This PSA ordered patient breakfast. [facility] 03-12-2024 Emergency department Note Pt ambulatory to RR with steady gait. [facility] 03-12-2024 Emergency department Note Rounding: ABCs intact, no c/o. ACTIVITY: Pt resting quietly on cart; patent airway. Spontaneous breathing w/ regular respirations. NEEDS/CONCERNS- none voiced, SAFETY: cart in low position, call light within reach. Pt remains in blue gown with continuous video/sitter monitoring in place for pt safety. No HI/SI attempts, nonviolent at present. [facility] 03-11-2024 Emergency department Note environmental science technician to room for CXR. Pt refusing CXR. [facility] 03-11-2024 History and physical note [facility]ICAL -- [facility] Patient Name: Mikayla Sotelo : 1990 MR #: [id number] Admit Date: 03/11/2024 Physicians: Miguel A Whitehead CNP (Family); No ref. provider found (Referring) Mikayla Sotelo is a 33 y.o. male patient of Miguel A Whitehead CNP with history of hepatitis C and history of drug abuse presented to [facility] on 03/11/2024 with suicidal thoughts. [...] and history of drug abuse presented to [facility] on 03/11/2024 with suicidal thoughts. Patient presents to the emergency department via pink slip from [place] [employer] after he was found in [...] normal coloration Psych: normal mood and affect [facility] 03-11-2024 Note HMS HISTORY AND PHYS ICAL -- [facility] Patient Name: Mikayla Sotelo : 1990 MR #: [id number] Admit Date: 03/11/2024 Physicians: Miguel A Whitehead CNP (Family); No ref. provider found (Referring) Mikayla Sotelo is a 33 y.o. male patient of Miguel A Whitehead CNP with history of hepatitis C and history of drug abuse presented to [facility] on 03/11/2024 with suicidal thoughts. [...] and history of drug abuse presented to [facility] on 03/11/2024 with suicidal thoughts. Patient presents to the emergency department via pink slip from [place] [employer] after he was found in [...] AUTHENTICATED BY CHANEL ROGERS ON 03/11/2024 22:58:01 [facility] 03-11-2024 History and physical note [facility]ICAL -- [facility] Patient Name: Mikayla Sotelo : 1990 MR #: [id number] Admit Date: 03/11/2024 Physicians: Miguel A Whitehead CNP (Family); No ref. provider found (Referring) Mikayla Sotelo is a 33 y.o. male patient of Miguel A Whitehead CNP with history of hepatitis C and history of drug abuse presented to [facility] on 03/11/2024 with suicidal thoughts. [...] and history of drug abuse presented to [facility] on 03/11/2024 with suicidal thoughts. Patient presents to the emergency department via pink slip from [facility] Department after he was found in his [...] mood and affect documented in this encounter [facility] 03-11-2024 Emergency department Note Rounding: ABCs intact, no c/o. ACTIVITY: Pt resting quietly on cart; patent airway. Spontaneous breathing w/ regular respirations. NEEDS/CONCERNS- none voiced, SAFETY: cart in low position, call light within reach. Pt remains in blue gown with continuous video/sitter monitoring in place for pt safety. No HI/SI attempts, nonviolent at present. [facility] 03-11-2024 Emergency department Note Rounding: ABCs intact, no c/o. ACTIVITY: Pt resting quietly on cart; patent airway. Spontaneous breathing w/ regular respirations. NEEDS/CONCERNS- none voiced, SAFETY: cart in low position, call light within reach. Pt remains in blue gown with continuous video/sitter monitoring in place for pt safety. No HI/SI attempts, nonviolent at present. [facility] 03-11-2024 Emergency department Note finger buffs assembler and C unit made aware of results. Bed change will be required. [facility] 03-11-2024 Emergency department Note Report given to C unit, awaiting strep and COVID results until patient can go upstairs. [facility] 03-11-2024 Emergency department Note Rounding: ABCs intact, no c/o. ACTIVITY: Pt resting quietly on cart; patent airway. Spontaneous breathing w/ regular respirations. NEEDS/CONCERNS- none voiced, SAFETY: cart in low position, call light within reach. Pt remains in blue gown with continuous video/sitter monitoring in place for pt safety. No HI/SI attempts, nonviolent at present. [facility] 03-11-2024 Physician Emergency department Note ED Attestation: I have reviewed the Advanced Practice Provider's (NAYLA's) documentation. In addition, I have personally introduced myself to the patient (face to face), and have taken his history and performed an examination. I agree with the physical findings, management, clinical impression and disposition. [facility] Work Phone: 03-11-2024 Miscellaneous Notes ED Attestation: [...] Prescreener Caller Information: Fernanda CADENA Referral Source: ([facility] ED) Diagnosis: Depression, PTSD, stimuliant use disorder Presenting Problem/Chief Complaint: Suicide attempt Prescreen: [facility] contacted for pre cert [phone] ; Authorization number [id number] 5 days 03/11 - 03/15; Review on the with Brittanie [phone] Medical Status: Stable Functional Status: Independent Medication [...] by SURINDER Go documented in this encounter [facility] 03-11-2024 Emergency department Note PATIENT UPDATED ON PLAN OF CARE, PATIENT STATED IM GONNA KILL THAT BITCH INFORMED PATIENT THAT WAS INAPPROPRIATE. [facility] 03-11-2024 Plan of care note Behavioral Health Pre Admission Screening Tool Date: 03/11/2024 Time: 6:27 PM Patient Name: Mikayla Sotelo Date of : 1990 Sex: Male Prescreener Caller Information: Fernanda KUMARJaniceJenny Referral Source: ([facility] ED) Diagnosis: Depression, PTSD, stimuliant use disorder Presenting Problem/Chief Complaint: Suicide attempt Prescreen: [facility] contacted for pre cert [phone] ; Authorization number [id number] 5 days 03/11 - 03/15; Review on the with Brittanie [phone] Medical Status: Stable Functional Status: Independent Medication [...] for psychiatric hospitalization. Accepted by SURINDER Go [facility] 03-11-2024 Physician Emergency department Note Images from the original note were not included. [facility] EMERGENCY DEPARTMENT NAYLA NOTE: NAME: Mikayla Sotelo CSN: [id number] 33 y.o. PCP: Miguel A Whitehead CNP History: Chief Complaint: Psychiatric Evaluation HPI: The history was obtained from the patient. Mikayla is a 33 y.o. male who presents with a chief complaint of Psychiatric Evaluation. Patient presents to the emergency department via pink slip from [facility] Department after he was found in his [...] - Normal CHEM 7 - Normal Narrative: [facility] has implemented the eGFR calculation [...] Procedure Abnormality Status --------- ------ CBC Auto Differential[[id number]] Abnormal Final result Please view results for these tests on the individual orders. CT Angiogram Head Neck Non-public Result 1. Normal noncontrast CT of the head. 2. Normal CT angiogram of the brain. 3. No acute carotid vertebral artery dissection. No significant carotid or vertebral artery stenosis. 4. No acute cervical spine fracture. Workstation ID: [id number] [facility]/ED course: Patient presents to the emergency department via pink slip from [facility] after he was found in his garage [...] as of 03/11/240 Sun Mar 11, 2024 3102 Spoke with Santos the 7th grade social studies teacher. She advises that Dr. Schwartz his excepted the patient. Admitting diagnosis is major depression. Admission orders have been placed at this time. [AL] 1839 Patient requesting Tylenol for headache. I have placed orders for the Tylenol for his pain relief. [AL] 2035 COVID-19/Influenza A,B Molecular(!) COVID-positive [AL] 2118 Spoke with [facility] about the patient being COVID-positive. Advised him that he was excepted for major depression by Dr. Schwartz. [facility] advises he will place admission orders. He also reports that the patient will likely stay in the ER due to no beds and no sitter. [AL] ED Course User Index [AL] Jonathan Britton, FIRST OFFICER AND FLIGHT INSTRUCTOR I did personally review Mikayla's past medical [...] Disposition: ED Disposition None Luda Pandya CNP, FIRST OFFICER AND FLIGHT INSTRUCTOR ED Advanced Practice Provider [facility] EMERGENCY DEPARTMENT (Please note that portions of this note have been completed with a voice recognition software. Efforts were made to correct any errors, but occasionally words are mis-transcribed.) Luda Pandya CNP 03/11/24 1716 [facility] 03-11-2024 Consult note Formatting of th is note is different from the original. ED Dairy Bacteriologist Behavioral Health Initial Assessment Date: 03/11/2024 Time: 4:26 PM Patient Name: Mikayla Sotelo Date of : 1990 Sex: Male Admit Date/Time: 03/11/2024 3:05 PM General Information Section Cutter Needs: Not needed Information Provided By: the patient Patient Support System: limited Current Living Arrangements: states he was living with his girlfriend Pat Type of Residence: Private residence Name and Contact of Collateral Provider: [facility] [phone]; unable to reach [employer] involuntary [...] telehealth while the patient was located at [place] [facility]. The patient was found sitting [...] and had just been swinging from the [employer]. A wooden bread box was laying in the middle of the garage floor. The box was on it's side and there were wet shoe prints on the box, indicating he used it to kick out from underneath his feet. Pt stated we stopped him from killing himself today but wouldn't stop him tomorrow. To the FIRST MATE the patient reported that he was swinging [...] felony drug charges and sent to [facility]. The patient states he has been in and out of county correction and in state fdc x 2 Mandaen beliefs: I believe Reynaldo Angelo is our savior. Access to firearms: denied Substance Use History Alcohol: denied Illicit Substance: the patient states he has a long hx of drug use dating back to the age of 9. He reports opiate use until the age of 25, and reports methamphetamine use and cannabis abuse. Treatment: reports treatment through [facility] and reports treatment while in fdc. Mental Status Evaluation General Appearance: Equal to [...] Conflict Resolution (Coping Skills): (maladaptive) Cultural and Mandaen Beliefs: Yes Access to Weapons: No Risk [...] psychiatric hospitalization. Electronically signed by: SURINDER Peralta [facility] 03-11-2024 Emergency department Triage note PATIENT PRESENTS TO THE ED FROM HOME WITH SANDHYA GREEN AFTER BEING FOUND IN HIS GARAGE AFTER A POSSIBLE HANGING. PATIENT DENIES ANY SUICIDAL THOUGHTS. [facility] 02-01-2024 Note Addended by: ELLIE LUNA on: 02/01/2024 02:12 PM Modules accepted: Orders [facility] 02-01-2024 Note Addended by: ELLIE LUNA on: 02/01/2024 02:12 PM Modules accepted: Orders [facility] 02-01-2024 Note Addended by: ELLIE LUNA on: 02/01/2024 02:12 PM Modules accepted: Orders [facility] 02-01-2024 Miscellaneous Notes Addended by: ELLIE MONTERROSO on: 02/01/2024 02:12 PM Modules accepted: Orders documented in this encounter [facility] 02-01-2024 Note NEW Patient Visit ELLIE Monterroso [...] using Betadine. Rubber band tourniquet was applied. [place] elevator was used to free the nail [...] using voice recogniti (more content not included)... [facility] 02-01-2024 History of Presen t [...] using Betadine. Rubber band tourniquet was applied. [place] elevator was used to free the nail [...] & Ankle Surgery documented in this encounter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
[2025-01-12 22:00] VITALS: BP 113/81; PULSE 102; O2SAT 100
--- OUTSIDE RECORDS SUMMARY | 2025-01-12 22:14 | XMS RPT_ITS | CCD ---
Author Organization [facility] Inform ion Partnership [facility] Care Team Providers Care Supervisor Maintenance And Custodians Name Role Phone Micah Morocho Unavailable Unavailable Micah Morocho Unavailable Unavailable MIGUEL A WHITEHEAD Unavailable Unavailable ETMIGUEL A BARRETT Unavailable Unavailable AUSTYN WHITE Attending Unavailab le EtMiguel A barrett Primary Care Provider TORY FARRIS Attending Unavailab le MIGUEL A WHITEHEAD Primary Care Unavailable Miguel A Whitehead Primary Care Provider EtMiguel A barrett Primary Care Provider Etzel PIPE MACHINE OPERATORMiguel A Primary Care Provider 1( [phone] Etzel SLIP COVER SEAMSTRESS-PIPE MACHINE OPERATORMiguel A Primary Care Provider MIGUEL A WHITEHEAD [facility] Care Unavailable ETMIGUEL A BARRETT [facility] Care Unavailable ETMIGUEL A BARRETT [...] day . 25 tablet 0 05/05/2020 Active [id number] 200 actuat albuterol 0.09 mg/actuat metered dose [...] 40 mg/ml oral suspension (4 sources) Uncompetitive C-qxbhjg-G-aspartate Receptor Antagonist, Sigma-1 Agonist Start: 11-22-2023 End: [...] 05-24-2019 prochlorperazine (COMPAZINE) injection 10 mg sennosides, shelter 8.6 mg oral tablet (1 source) Start: [...] Prov Note ED PROVIDER NOTE [facility] EMERGENCY DEPARTMENT NAME: Mikayla Sotelo AGE: 34 y.o. : 1990 VISIT DATE: 12/04/2024 CSN: [id number] PCP: Miguel A Whitehead, SANDRA Chief Complaint [...] for reevaluation for persistent discomfort Zabrina Wan [facility] [id number] Contact information for after-discharge care [...] AUTHENTICATED BY JEANETTE BLUNT, ON 12/04/2024 22:36:25 [facility] XR HAND RIGHT 3+ VIEWS (ISAIAS DARD)on [...] on TueDec 04, 2024 10:28:56 PM EDT [facility] Comment on above: Order Comment: [...] on TueDec 04, 2024 10:28:56 PM EDT [facility] Comment on above: Order Comment: [...] BY SANA BHAGAT, ON 08/25/2024 11:11:47 Normal [facility] ED Prov Noteon 08-25-2024 ED Prov Note [facility] ED Attending Note: NAME: Mikayla Sotelo 34 y.o. 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 [id number] TROPONIN T INTERPRETATION Normal Normal [facility] Comment on above: Performed By: #### L [id number] ####[facility] [address], [place] [address] Harrison Evangelista M.D. [id number] XR CHEST PA/APon 08-25-2024 XR CHEST PA/AP [...] Sat Aug 25, 2024 11:37:22 AM EDT [facility] Comment on above: Order Comment: Injur [...] Prov Note ED PROVIDER NOTE [facility] EMERGENCY DEPARTMENT NAME: Mikayla Sotelo AGE: 34 y.o. : 1990 VISIT DATE: 06/10/2024 CSN: [id number] PCP: Miguel A Whitehead, SANDRA Chief Complaint Patient presents with Shoulder Pain RIGHT 34-year-old male presents here today complaining of right shoulder pain. Patient describes having a remote injury of his right shoulder while in [place] [facility]. He describes having some [...] Surgery Why: If symptoms not improved [address] [facility] [id number] Contact information for after-discharge care Follow-up information has not been specified. New Prescriptions meloxicam (MOBIC) 7.5 MG tablet Take 1 (one) tablet (7.5 mg total) by mouth daily . Marc Connelly MD 06/10/248 [1] Social History Socioeconomic History Marital status: Tobacco Use Smoking status: Every Day Current packs/day: 0.50 Types: Cigarettes Smokeless tobacco: Never Vaping Use Vaping s (more content not included)... [facility] XR CHEST AP/PA AND LATon XR CHEST [...] ID: [id number] Dictated by: LESTER MCKAY on [place] Jun 10, 2024 10:05:13 PM EDT Transcribed by: LESTER MCKAY on [place] Jun 10, 2024 10:05:13 PM EDT Finalized by: LESTER MCKAY on [place] Jun 10, 2024 10:05:13 PM EDT [facility] Comment on above: Order Comment: [...] [id number] Dictated by: PAULO NESBITT V on [place] Jun 10, 2024 11:43:10 PM EDT Transcribed by: PAULO NESBITT V on [place] Jun 10, 2024 11:43:10 PM EDT Finalized by: PAULO NESBITT V on [place] Jun 10, 2024 11:43:10 PM EDT [facility] Comment on above: Order Comment: [...] Mikayla Sotelo Admit Date: 03/11/2024 MR #: [id number] : 1990 Assessment Mikayla Sotelo is a [...] History Living situation: has friends who will assisted him 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 Family counseled on [...] Intact C (more content not included)... Normal [facility] ACETAMINOPHEN LEVELon 2024 ACETAMINOPHEN < Normal 0.0-30.0 [facility] Comment on above: Order Comment: Thera peutic Range: 10-30 mcg/mLPotentially Toxic: >200 mcg/mL (4 hours post dose) >100 mcg/mL (8 hours post dose) >50 mcg/mL (12 hours post dose) Performed By: #### 4 [id number] ####[facility] [address], [place] [address] Harrison Evangelista M.D. [id number] ALCOHOL, MEDICALon ALCOHOL MEDICAL < Normal <10.0 [facility] Comment on above: Result Comment: Alco hol cutoff: <10.00 mg/dL = None Detected Performed By: #### 4 [id number] ####[facility] [address] [place], [place] [address] Harrison Evangelista M.D. [id number] Acetaminophen Levelon 2024 Acetaminophen [Mass/Vol] [facility] Acetaminophen [Mass/Vol]on 0 03-11-2024 Interpretation and review of laboratory results Normal [facility] Therapeutic Range: 10-30 mcg/mL Potentially Toxic: >200 mcg/mL (4 hours post dose) >100 mcg/mL (8 hours post dose) >50 mcg/mL (12 hours post dose) [facility] Alcohol LevelOrdered By: Radha Lopez on 03-11-2024 Ethanol [Mass/Vol] mg/dL NINF - 10 .0 mg/dL [facility] Comment on above: Alcohol cutoff: <10. 00 mg/dL = None Detected Basic metabolic 1998 panelon 03-11-2024 Anion gap [Moles/Vol] 14 mmol/L 10 - 2 0 mmol/L [facility] Chloride [Moles/Vol] 100 mmol/L 98 - 10 8 mmol/L [facility] Creatinine [Mass/Vol] 1.03 mg/dL 0.50 - 1.30 mg/dL [facility] GFR/1.73 sq M.predicted CKD-EPI (S/P/Bld) [Vol rate/Area] 98 - PINF [facility] Comment on above: Estimated GFR was ca lculated using the 2020 CKD-EPI creatinine equation. Glucose [Mass/Vol] 94 mg/dL 65 - 99 mg/dL [facility] HCO3 [Moles/Vol] 29 mmol/L 21 - 32 mmol/L [facility] Interpretation and review of laboratory results Normal [facility] Potassium [Moles/Vol] 3.9 mmol/L 3.5 - 5.1 mmol/L [facility] Sodium [Moles/Vol] 139 mmol/L 135 - 145 mmol/L [facility] Urea nitrogen [Mass/Vol] 13 mg/dL 8 - 25 mg/dL [facility] Urea nitrogen/Creatinine [Mass ratio] 12.6 mg/mg 10.0 - 20.0 [facility] has implemented the eGFR calculation approach that does not have a coefficient for race that conforms to the NKF-ASN Task Force Recommendations. [facility] CBC Auto Differentialon 02-15 Basophils (Bld) [#/Vol] 0.01 10*3/uL [facility] Basophils/100 WBC (Bld) 0.1 % [facility] Eosinophils (Bld) [#/Vol] 0.02 10*3/uL [facility] Eosinophils/100 WBC (Bld) 0.2 % [facility] Erythrocyte distribution width (RBC) [Entitic vol] 12.3 % 11.6 - 14.8 % [facility] Hematocrit (Bld) [Volume fraction] 53.5 % High 41.0 - 53.0 % [facility] Hemoglobin (Bld) [Mass/Vol] 18.2 g/dL High 13.5 - 17.5 g/dL [facility] Immature granulocytes (Bld) [#/Vol] 0.08 10*3/uL [facility] Immature granulocytes/100 WBC (Bld) 0.8 % [facility] Comment on above: The IG parameter is the percentage of metamyelocytes, myelocytes and promyelocytes. An immature granulocyte count (IG) of 1% or more suggests the possibility of infection, an IG count of 3% is very likely related to an infection. Interpretation and review of laboratory results Abnormal [facility] Lymphocytes (Bld) [#/Vol] 1.45 10*3/uL [facility] Lymphocytes/100 WBC (Bld) 13.8 % [facility] MCH (RBC) [Entitic mass] 29.8 pg 26.0 - 34.0 pg [facility] MCHC (RBC) [Mass/Vol] 34 g/dL 31.0 - 37.0 g/dL [facility] MCV (RBC) [Entitic vol] 87.7 fL 80.0 - 100.0 fL [facility] Monocytes (Bld) [#/Vol] 1.06 10*3/uL High [facility] Monocytes/100 WBC (Bld) 10.1 % [facility] Neutrophils (Bld) [#/Vol] 7.92 10*3/uL High [facility] Neutrophils/100 WBC (Bld) 75 % [facility] Nucleated RBC (Bld) [#/Vol] 0 10*3/uL [facility] Nucleated RBC/100 WBC (Bld) [Ratio] 0 % [facility] Platelet mean volume (Bld) [Entitic vol] 8.8 fL Low 9.4 - 12.4 fL [facility] Platelets (Bld) [#/Vol] 217 10*3/uL [facility] RBC (Bld) [#/Vol] 6.1 10*6/uL High [facility] alth WBC (Bld) [#/Vol] 10.54 10*3/uL [facility] CBC WITH AUTO DIFFERENTIALon 03-11-2024 AUTO NRBC 0.0 % Normal [facility] Comment on above: Performed By: #### L [id number] #### LAB [address] [address] Harrison Evangelista M.D. [id number] AUTO NRBC ABS COUNT 0.00 K/mcL Normal 0.00-0.00 [facility] Comment on above: Performed By: #### L [id number] #### LAB [address] [address] Harrison Evangelista M.D. [id number] BASOPHILS ABSOLUTE COUNT 0.01 K/mcL Normal 0.00-0.30 [facility] Comment on above: Performed By: #### L [id number] #### LAB [address] [address] Harrison Evangelista M.D. [id number] Basophils/100 WBC (Bld) 0.1 % Normal [facility] Comment on above: Performed By: #### L [id number] #### LAB [address] [address] Harrison Evangelista M.D. [id number] Eosinophils (Bld) [#/Vol] 0.02 10*3/uL Normal 0.00-0.50 [facility] Comment on above: Performed By: #### L [id number] #### [facility] [address] [address] Harrison Evangelista M.D. [id number] Eosinophils/100 WBC (Bld) 0.2 % Normal [facility] Comment on above: Performed By: #### L [id number] #### LAB [address] [place] [address] Harrison Evangelista M.D. [id number] Erythrocyte distribution width (RBC) [Ratio] 12.3 % Normal 11.6-14.8 [facility] Comment on above: Performed By: #### L [id number] #### LAB [address] [address] Harrison Evangelista M.D. [id number] Hematocrit (Bld) [Volume fraction] 53.5 % High 41.0-53.0 [facility] Comment on above: Performed By: #### L [id number] #### LAB [address] [address] Harrison Evangelista M.D. [id number] Hemoglobin (Bld) [Mass/Vol] 18.2 g/dL High 13.5-17.5 [facility] Comment on above: Performed By: #### L [id number] #### [facility] [address] [address] Harrison Evangelista M.D. [id number] IG ABSOLUTE 0.08 K/mcL Normal 0.00-0.30 [facility] Comment on above: Performed By: #### L [id number] #### LAB [address] [address] Harrison Evangelista M.D. [id number] IG PERCENT 0.80 % Normal [facility] Comment on above: Result Comment: The IG parameter is the percentage of metamyelocytes, myelocytes and promyelocytes. An immature granulocyte count (IG) of 1% or more suggests the possibility of infection, an IG count of 3% is very likely related to an infection. Performed By: #### L [id number] #### LAB [address] [address] Harrison Evangelista M.D. [id number] Lymphocytes (Bld) [#/Vol] 1.45 10*3/uL Normal 0.90-4.00 [facility] Comment on above: Performed By: #### L [id number] #### LAB [address] [address] Harrison Evangelista M.D. [id number] Lymphocytes/100 WBC (Bld) 13.8 % Normal [facility] Comment on above: Performed By: #### L [id number] #### LAB [address] [address] Harrison Evangelista M.D. [id number] MCH (RBC) [Entitic mass] 29.8 pg Normal 26.0-34.0 [facility] Comment on above: Performed By: #### L [id number] #### [facility] [address] [address] Harrison Evangelista M.D. [id number] MCV (RBC) [Entitic vol] 87.7 fL Normal 80.0-100.0 [facility] Comment on above: Performed By: #### L [id number] #### LAB [address] [address] Harrison Evangelista M.D. [id number] MEAN CORPUSCULAR HEMOGLOBIN CONC 34.0 g/dL Normal 31.0-37.0 [facility] Comment on above: Performed By: #### L [id number] #### LAB [address] [place] [address] Harrison Evangelista M.D. [id number] Monocytes (Bld) [#/Vol] 1.06 10*3/uL High 0.30-0.90 [facility] Comment on above: Performed By: #### L [id number] #### LAB [address] [address] Harrison Evangelista M.D. [id number] Monocytes/100 WBC (Bld) 10.1 % Normal [facility] Comment on above: Performed By: #### L [id number] #### LAB [address] [address] Harrison Evangelista M.D. [id number] NEUTROPHILS ABSOLUTE COUNT 7.92 K/mcL High 1.70-7.00 [facility] Comment on above: Performed By: #### L [id number] #### LAB [address] [address] Harrison Evangelista M.D. [id number] Neutrophils/100 WBC (Bld) 75.0 % [facility] Comment on above: Performed By: #### L [id number] #### LAB [address] [address] Harrison Evangelista M.D. [id number] Platelet mean volume (Bld) [Entitic vol] 8.8 fL Low 9.4-12.4 [facility] Comment on above: Performed By: #### L [id number] #### LAB [address] [address] Harrison Evangelista M.D. [id number] Platelets (Bld) [#/Vol] 217 10*3/uL Normal 150-400 [facility] Comment on above: Performed By: #### L [id number] #### LAB [address] [address] Harrison Evangelista M.D. [id number] RBC (Bld) [#/Vol] 6.10 10*6/uL High 4.50-5.90 [facility] Comment on above: Performed By: #### L [id number] #### LAB [address] [address] Harrison Evangelista M.D. [id number] WBC (Bld) [#/Vol] 10.54 10*3/uL Normal 4.50-11.00 [facility] Comment on above: Performed By: #### L [id number] #### LAB [address], [place] [address] Harrison Evangelista M.D. [id number] CHEM 703-11-2024 Anion gap [Moles/Vol] 14 mmol/L Normal 10-20 [facility] Comment on above: Order Comment: [facility] has implemented the eGFR calculation approach that does not have a coefficient for race that conforms to the NKF-ASN Task Force Recommendations. Performed By: #### 4 [id number] ####[facility] [address], [place] [address] Harrison Evangelista M.D. [id number] Chloride [Moles/Vol] 100 mmol/L Normal 98-108 [facility] Comment on above: Order Comment: [facility] has implemented the eGFR calculation approach that does not have a coefficient for race that conforms to the NKF-ASN Task Force Recommendations. Performed By: #### 4 [id number] #### LAB [address], [place] [address] Harrison Evangelista M.D. [id number] Creatinine [Mass/Vol] 1.03 mg/dL Normal 0.50-1.30 [facility] Comment on above: Order Comment: [facility] has implemented the eGFR calculation approach that does not have a coefficient for race that conforms to the NKF-ASN Task Force Recommendations. Performed By: #### 4 6953 ####[facility] [address], [place] [address] Harrison Evangelista M.D. [id number] EGFR 98 mL/min/1.73 m2 Normal >=60 [facility] Comment on above: Order Comment: [facility] has implemented the eGFR calculation approach that does not have a coefficient for race that conforms to the NKF-ASN Task Force Recommendations. Result Comment: Marisol mated GFR was calculated using the 2020 CKD-EPI creatinine equation. Performed By: #### 4 [id number] ####[facility] [address] [address] Harrison Evangelista M.D. [id number] Glucose [Mass/Vol] 94 mg/dL Normal 65-99 [facility] Comment on above: Order Comment: [facility] has implemented the eGFR calculation approach that does not have a coefficient for race that conforms to the NKF-ASN Task Force Recommendations. Performed By: #### 4 6953 ####[facility] [address] [address] Harrison Evangelista M.D. [id number] HCO3 (Bld) [Moles/Vol] 29 mmol/L Normal 21-32 [facility] Comment on above: Order Comment: [facility] has implemented the eGFR calculation approach that does not have a coefficient for race that conforms to the NKF-ASN Task Force Recommendations. Performed By: #### 4 [id number] #### LAB [address] [address] Harrison Evangelista M.D. [id number] Potassium [Moles/Vol] 3.9 mmol/L Normal 3.5-5.1 [facility] Comment on above: Order Comment: [facility] has implemented the eGFR calculation approach that does not have a coefficient for race that conforms to the NKF-ASN Task Force Recommendations. Performed By: #### 4 6953 ####[facility] [address] [address] Harrison Evangelista M.D. [id number] Sodium [Moles/Vol] 139 mmol/L Normal 135-145 [facility] Comment on above: Order Comment: [facility] has implemented the eGFR calculation approach that does not have a coefficient for race that conforms to the NKF-ASN Task Force Recommendations. Performed By: #### 4 6953 ####[facility] [address] [address] Harrison Evangelista M.D. [id number] Urea nitrogen [Mass/Vol] 13 mg/dL Normal 8-25 [facility] Comment on above: Order Comment: [facility] has implemented the eGFR calculation approach that does not have a coefficient for race that conforms to the NKF-ASN Task Force Recommendations. Performed By: #### 4 6953 #### LAB [address], [place] [address] Harrison Evangelista M.D. [id number] Urea nitrogen/Creatinine [Mass ratio] 12.6 mg/mg Normal 10.0-20.0 [facility] Comment on above: Order Comment: [facility] has implemented the eGFR calculation approach that does not have a coefficient for race that conforms to the NKF-ASN Task Force Recommendations. Performed By: #### 4 [id number] #### LAB [address], [place] [address] Harrison Evangelista M.D. [id number] COVID-19/INFLUENZA A,B MOLEC ULARon 03-11-2024 SARS-CoV-2 (COVID-19) Ab IA Ql SARS-COV-2 (CECILIA) Detected INFLUENZA A (CECILIA) Not Detected INFLUENZA B (CECILIA) Not Detected Abnormal Not Detected [facility] Comment on above: Performed By: #### L [id number] #### LAB [address], [place] [address] Harrison Evangelista M.D. [id number] CT ANGIOGRAM HEAD NECKon CT ANGIOGRAM HEAD [...] 3D reconstructions were obtained on an independent [employer] workstation. Carotid stenosis is reported according to [...] stenosis. 4. No acute cervical spine fracture. [employer] Workstation ID: [id number] Dictated by: ESA MONTOYA on [place] Mar 11, 2024 5:09:27 PM EST Transcribed by: NATO ANTOINE on [place] Mar 11, 2024 5:43:10 PM EST Finalized by: ESA MONTOYA on [place] Mar 11, 2024 9:44:25 PM EST Normal [facility] Comment on above: Order Comment: Injur y/Trauma [...] stenosis. 4. No acute cervical spine fracture. [employer] Workstation ID: [id number] [employer] [facility] EXAMINATION: CT ANGIOGRAM HEAD NECK HISTORY: Concern [...] 3D reconstructions were obtained on an independent [employer] workstation. Carotid stenosis is reported according to [...] No laryngeal edema. No masses. No lymphadenopathy. [facility] Esa Montoya MD - 03/11/2024 EXAMINATION: CT [...] 3D reconstructions were obtained on an independent [employer] workstation. Carotid stenosis is reported according to [...] cervical spine fracture. [employer] Workstation ID: [id number] [facility] Radiology Study observation (narrative) [facility] CTA Head vessels and Neck ve ssels W contrast IVOrdered By: Esa Montoya on 03-11-2024 [facility] Work Phone: DRUGS OF ABUSE SCREEN, URINE on 03-11-2024 AMPHETAMINE SCREEN, URINE Positive Abnormal None Detected [facility] Comment on above: Order Comment: Scree n results should be used for treatment purposes only. Specimen will be kept for 2 weeks, if the sample is adequate. Confirmation testing can be initiated by calling the lab within 2 weeks. Result Comment: Urin e Amphetamine Cutoff: < 1000 ng/mL = None Detected Performed By: #### 4 [id number] #### LAB [address], [place] [address] Harrison Evangelista M.D. [id number] BARBITURATE SCREEN URINE Not detected Normal None Detected [facility] Comment on above: Order Comment: Scree n results should be used for treatment purposes only. Specimen will be kept for 2 weeks, if the sample is adequate. Confirmation testing can be initiated by calling the lab within 2 weeks. Result Comment: Urin e Barbiturates Cutoff: < 200 ng/mL = None Detected Performed By: #### 4 [id number] #### [facility] [address] [address] Harrison Evangelista M.D. [id number] BENZODIAZEPINE SCREEN, URINE Not detected Normal None Detected [facility] Comment on above: Order Comment: Scree n results should be used for treatment purposes only. Specimen will be kept for 2 weeks, if the sample is adequate. Confirmation testing can be initiated by calling the lab within 2 weeks. Result Comment: Urin e Benzodiazepine Cutoff: < 200 ng/mL = None Detected Performed By: #### 4 [id number] #### LAB [address] [address] Harrison Evangelista M.D. [id number] BUPRENORPHINE, URINE Not detected Normal None Detected [facility] Comment on above: Order Comment: Scree n results should be used for treatment purposes only. Specimen will be kept for 2 weeks, if the sample is adequate. Confirmation testing can be initiated by calling the lab within 2 weeks. Result Comment: Urin e Buprenorphine Cutoff: < 5 ng/mL = None Detected Performed By: #### 4 [id number] #### [facility] [address] [address] Harrison Evangelista M.D. [id number] CANNABINOID SCREEN URINE Positive Abnormal None Detected [facility] Comment on above: Order Comment: Scree n results should be used for treatment purposes only. Specimen will be kept for 2 weeks, if the sample is adequate. Confirmation testing can be initiated by calling the lab within 2 weeks. Result Comment: Urin e Cannabinoids Cutoff: < 50 ng/mL = None Detected Performed By: #### 4 [id number] #### [facility] [address] [address] Harrison Evangelista M.D. [id number] COCAINE, SCREEN URINE Not detected Normal None Detecte d [facility] Comment on above: Order Comment: Scree n results should be used for treatment purposes only. Specimen will be kept for 2 weeks, if the sample is adequate. Confirmation testing can be initiated by calling the lab within 2 weeks. Result Comment: Urin e Cocaine Cutoff: < 300 ng/mL = None Detected Performed By: #### 4 [id number] #### [facility] [address] [address] Harrison Evangelista M.D. [id number] FENTANYL, URINE Not detected Normal None Detected [facility] Comment on above: Order Comment: Scree n results should be used for treatment purposes only. Specimen will be kept for 2 weeks, if the sample is adequate. Confirmation testing can be initiated by calling the lab within 2 weeks. Result Comment: Urin e Fentanyl Cutoff: < 1 ng/mL = None Detected Performed By: #### 4 [id number] #### LAB [address] [place] [address] Harrison Evangelista M.D. [id number] METHADONE SCREEN, URINE Not detected Normal None Detected [facility] Comment on above: Order Comment: Scree n results should be used for treatment purposes only. Specimen will be kept for 2 weeks, if the sample is adequate. Confirmation testing can be initiated by calling the lab within 2 weeks. Result Comment: Urin e Methadone Cutoff: < 300 ng/mL = None Detected Performed By: #### 4 [id number] #### [facility] [address] [address] Harrison Evangelista M.D. [id number] OPIATE SCREEN URINE Not detected Normal None Detected [facility] Comment on above: Order Comment: Scree n results should be used for treatment purposes only. Specimen will be kept for 2 weeks, if the sample is adequate. Confirmation testing can be initiated by calling the lab within 2 weeks. Result Comment: Urin e Opiates Cutoff: < 300 ng/mL = None Detected Performed By: #### 4 [id number] #### [facility] [address] [place] [address] Harrison Evangelista M.D. [id number] OXYCODONE SCREEN, URINE Not detected Normal None Detected [facility] Comment on above: Order Comment: Scree n results should be used for treatment purposes only. Specimen will be kept for 2 weeks, if the sample is adequate. Confirmation testing can be initiated by calling the lab within 2 weeks. Result Comment: Johanna celaya Oxycodone Cutoff: < 100 ng/mL = None Detected Performed By: #### 4 6965 #### LAB [address] [place], [place] [address] Harrison Evangelista M.D. [id number] ED Prov Noteon 03-11-2024 ED Prov Note [facility] EMERGENCY DEPARTMENT NAYLA NOTE: NAME: Mikayla Sotelo CSN: [id number] 33 y.o. PCP: Miguel A Whitehead CNP History: Chief Complaint: Psychiatric Evaluation HPI: The history was obtained from the patient. Mikayla is a 33 y.o. male who presents with a chief complaint of Psychiatric Evaluation. Patient presents to the emergency department via pink slip from [facility] Department after he was found [...] Abdominal: General: (more content not included)... Normal [facility] Ethanol [Mass/Vol]Ordered By : Chrystal Lopez on 03-11-2024 Interpretation and review of laboratory results Normal [facility] Influenza virus A and B RNA and SARS-CoV-2 (COVID-19) N gene panel MELISSA+probe (Resp)Ordered By: Nicole Oliveira on 03-11-2024 FLUAV RNA MELISSA+probe Ql (Unsp spec) Not detected Not Detected [facility] FLUBV RNA MELISSA+probe Ql (Unsp spec) Not detected Not Detected [facility] Interpretation and review of laboratory results Abnormal [facility] SARS-CoV-2 (COVID-19) RNA MELISSA+probe Ql (Resp) Detected Abnormal Not Detected [facility] No Panel Informationon 03-11 Extra Tube Hold for add-ons. [facility] Comment on above: Auto resulted. [facility] RAPID STREP SCREENon 025 S. pyogenes Ag IA Ql (Unsp spec) Not detected Normal Not Detected [facility] Comment on above: Order Comment: Test Method: Nucleic Acid Amplification Performed By: #### 4 [id number] #### LAB [address] [place], [place] [address] Harrison Evangelista M.D. [id number] S. pyogenes Ag Ql (Throat)on 03-11-2024 Interpretation and review of laboratory results Normal [facility] Strep Group A Molecular Not detected Not Detected [facility] Test Method: Nucleic Acid Amplification [facility] SALICYLATE LEVELon 5 SALICYLATE < Normal 0.0-20.0 [facility] Comment on above: Order Comment: Thera peutic Range: 10-20 mg/dLPotentially Toxic: >30 mg/dL Performed By: #### 4 6472 #### LAB [address] [place] [address] Harrison Evangelista M.D. [id number] Salicylate Levelon 5 Salicylates [Mass/Vol] mg/dL 0.0 - 20.0 mg/dL [facility] Salicylates [Mass/Vol]on Interpretation and review of laboratory results Normal [facility] Therapeutic Range: 10-20 mg/dL Potentially Toxic: >30 mg/dL [facility] TSHon 03-11-2024 TSH Qn 1.35 m[IU]/L Normal 0.27-4.20 [facility] Comment on above: Performed By: #### 4 6613 #### LAB [address] [place] [address] Harrison Evangelista M.D. [id number] TSH DL <= 0.005 mIU/L Qnon 0 03-11-2024 Interpretation and review of laboratory results Normal [facility] TSH Qn 1.35 m[IU]/L [facility] Urine Drug Screenon 03-11-19 25 Amphetamines Ql (U) Positive Abnormal None Detected [facility] Comment on above: Urine Amphetamine Cu toff: < 1000 ng/mL = None Detected Barbiturates Screen Ql (U) Not detected None Detected [facility] Comment on above: Urine Barbiturates C utoff: < 200 ng/mL = None Detected Benzodiazepines Ql (U) Not detected None Detect ed [facility] Comment on above: Urine Benzodiazepine Cutoff: < 200 ng/mL = None Detected Buprenorphine Ql (U) Not detected None Detected [facility] Comment on above: Urine Buprenorphine Cutoff: < 5 ng/mL = None Detected Cannabinoids Screen Ql (U) Positive Abnormal None Detected [facility] Comment on above: Urine Cannabinoids C utoff: < 50 ng/mL = None Detected Cocaine Ql (U) Not detected None Detected [facility] Comment on above: Urine Cocaine Cutoff : < 300 ng/mL = None Detected fentaNYL+Norfentanyl Screen Ql (U) Not detected None Detected [facility] Comment on above: Urine Fentanyl Cutof f: < 1 ng/mL = None Detected Interpretation and review of laboratory results Abnormal [facility] Methadone Screen Ql (U) Not detected None Detected [facility] Comment on above: Urine Methadone Cuto ff: < 300 ng/mL = None Detected Opiates Screen Ql (U) Not detected None Detecte d [facility] Comment on above: Urine Opiates Cutoff [...] by calling the lab within 2 weeks. [facility] CBC WITH AUTO DIFFERENTIALon 02-11-2024 BASOPHILS ABSOLUTE COUNT 0.00 K/mcL Normal 0.00-0.30 [facility] Comment on above: Performed By: #### L [id number] #### [facility] [address] [place] [address] Harrison Evangelista M.D. [id number] Basophils/100 WBC (Bld) 0.0 % Normal [facility] Comment on above: Performed By: #### L [id number] #### [facility] [address] [place] [address] Harrison Evangelista M.D. [id number] Eosinophils (Bld) [#/Vol] 0.00 10*3/uL Normal 0.00-0.50 [facility] Comment on above: Performed By: #### L [id number] #### [facility] [address] [place] [address] Harrison Evangelista M.D. [id number] Eosinophils/100 WBC (Bld) 0.0 % [facility] Comment on above: Performed By: #### L [id number] #### [facility] LAB [address] [place], [place] [id number] Harrison Evangelista M.D. [id number] Erythrocyte distribution width (RBC) [Ratio] 12.5 % Normal 11.6-14.8 [facility] Comment on above: Performed By: #### L [id number] #### [facility] [address] [place] [address] aHrrison Evangelista M.D. [id number] Hematocrit (Bld) [Volume fraction] 48.9 % Normal 41.0-53.0 [facility] Comment on above: Performed By: #### L [id number] #### [facility] [address] [place] [address] Harrison Evangeilsta M.D. [id number] Hemoglobin (Bld) [Mass/Vol] 16.5 g/dL Normal 13.5-17.5 [facility] Comment on above: Performed By: #### L [id number] #### SH [place] [address] Harrison Evangelista M.D. [id number] IG ABSOLUTE 0.07 K/mcL Normal 0.00-0.30 [facility] Comment on above: Performed By: #### L [id number] #### SH [place] [address] Harrison Evangelista M.D. [id number] IG PERCENT 0.90 % Normal [facility] Comment on above: Result Comment: The IG parameter is the percentage of metamyelocytes, myelocytes and promyelocytes. An immature granulocyte count (IG) of 1% or more suggests the possibility of infection, an IG count of 3% is very likely related to an infection. Performed By: #### L [id number] #### [facility] [address] [place] [address] Harrison Evangelista M.D. [id number] Lymphocytes (Bld) [#/Vol] 2.74 10*3/uL Normal 0.90-4.00 [facility] Comment on above: Performed By: #### L [id number] #### SH [place] [address] Harrison Evangelista M.D. [id number] Lymphocytes/100 WBC (Bld) 34.0 % Normal [facility] Comment on above: Performed By: #### L [id number] #### [facility] LAB [address] [place] [address] Harrison Evangelista M.D. [id number] MCH (RBC) [Entitic mass] 30.3 pg Normal 26.0-34.0 [facility] Comment on above: Performed By: #### L [id number] #### [facility] [address] [place] [address] Harrison Evangelista M.D. [id number] MCV (RBC) [Entitic vol] 89.7 fL Normal 80.0-100.0 [facility] Comment on above: Performed By: #### L [id number] #### [facility] [address] [place] [address] Harrison Evangelista M.D. [id number] MEAN CORPUSCULAR HEMOGLOBIN CONC 33.7 g/dL Normal 31.0-37.0 [facility] Comment on above: Performed By: #### L [id number] #### [facility] [address] [place] [address] Harrison Evangelista M.D. [id number] Monocytes (Bld) [#/Vol] 0.96 10*3/uL High 0.30-0.90 [facility] Comment on above: Performed By: #### L [id number] #### [facility] [address] [place] [address] Harrison Evangelista M.D. [id number] Monocytes/100 WBC (Bld) 11.9 % Normal [facility] Comment on above: Performed By: #### L [id number] #### [facility] [address] [place] [address] Harrison Evangelista M.D. [id number] NEUTROPHILS ABSOLUTE COUNT 4.30 K/mcL Normal 1.70-7.00 [facility] Comment on above: Performed By: #### L [id number] #### [facility] [address] [place] [address] Harrison Evangelista M.D. [id number] Neutrophils/100 WBC (Bld) 53.2 % Normal [facility] Comment on above: Performed By: #### L [id number] #### [facility] LAB [address] [place] [address] Harrison Evangelista M.D. [id number] Platelet mean volume (Bld) [Entitic vol] 8.5 fL Low 9.4-12.4 [facility] Comment on above: Performed By: #### L [id number] #### [facility] LAB [address] [place], [place] [address] Harrison Evangelista M.D. [id number] Platelets (Bld) [#/Vol] 207 10*3/uL Normal 150-400 [facility] Comment on above: Performed By: #### L [id number] #### [facility] LAB [address] [place] [address] Harrison Evangelista M.D. [id number] RBC (Bld) [#/Vol] 5.45 10*6/uL Normal 4.50-5.90 [facility] Comment on above: Performed By: #### L [id number] #### [facility] LAB [address] [place], [place] [address] Harrison Evangelista M.D. [id number] WBC (Bld) [#/Vol] 8.07 10*3/uL Normal 4.50-11.00 [facility] Comment on above: Performed By: #### L [id number] #### [facility] LAB [address] [place] [address] Harrison Evangelista M.D. [id number] COMPREHENSIVE METABOLIC PANE [facility] 02-11-2024 Albumin [Mass/Vol] 4.3 g/dL Normal 3.2-5.2 [facility] Comment on above: Order Comment: [facility] has implemented the eGFR calculation approach that does not have a coefficient for race that conforms to the NKF-ASN Task Force Recommendations. Performed By: #### 4 [id number] #### [facility] LAB [address] [place] [address] Harrison Evangelista M.D. [id number] ALP [Catalytic activity/Vol] 103 U/L Normal 40-140 [facility] Comment on above: Order Comment: [facility] has implemented the eGFR calculation approach that does not have a coefficient for race that conforms to the NKF-ASN Task Force Recommendations. Performed By: #### 4 6126 #### SH [place] [address] Harrison Evangelista M.D. [id number] ALT [Catalytic activity/Vol] 37 U/L Normal 0-50 U/L [facility] Comment on above: Order Comment: [facility] has implemented the eGFR calculation approach that does not have a coefficient for race that conforms to the NKF-ASN Task Force Recommendations. Performed By: #### 4 6126 #### SH [place] [address] Harrison Evangelista M.D. [id number] Anion gap [Moles/Vol] 12 mmol/L Normal 10-20 [facility] Comment on above: Order Comment: [facility] has implemented the eGFR calculation approach that does not have a coefficient for race that conforms to the NKF-ASN Task Force Recommendations. Performed By: #### 4 6126 #### [place] [address] Harrison Evangelista M.D. [id number] AST [Catalytic activity/Vol] 28 U/L Normal 0-50 U/L [facility] Comment on above: Order Comment: [facility] has implemented the eGFR calculation approach that does not have a coefficient for race that conforms to the NKF-ASN Task Force Recommendations. Performed By: #### 4 6126 #### SH [place] [address] Harrison Evangelista M.D. [id number] Bilirubin [Mass/Vol] 0.3 mg/dL Normal 0.0-1.3 [facility] Comment on above: Order Comment: [facility] has implemented the eGFR calculation approach that does not have a coefficient for race that conforms to the NKF-ASN Task Force Recommendations. Performed By: #### 4 6126 #### SH [place] [address] Harrison Evangelista M.D. [id number] Calcium [Mass/Vol] 9.4 mg/dL Normal 8.4-10.2 [facility] Comment on above: Order Comment: [facility] has implemented the eGFR calculation approach that does not have a coefficient for race that conforms to the NKF-ASN Task Force Recommendations. Performed By: #### 4 6126 #### [facility] LAB [address] [place] [address] Harrison Evangelista M.D. [id number] Chloride [Moles/Vol] 104 mmol/L Normal 98-108 [facility] Comment on above: Order Comment: [facility] has implemented the eGFR calculation approach that does not have a coefficient for race that conforms to the NKF-ASN Task Force Recommendations. Performed By: #### 4 6126 #### SH [address] [address] Harrison Evangelista M.D. [id number] Creatinine [Mass/Vol] 1.05 mg/dL Normal 0.50-1.30 [facility] Comment on above: Order Comment: [facility] has implemented the eGFR calculation approach that does not have a coefficient for race that conforms to the NKF-ASN Task Force Recommendations. Performed By: #### 4 6126 #### LAB [address] [place] [address] Harrison Evangelista M.D. [id number] EGFR 96 mL/min/1.73 m2 Normal >=60 [facility] Comment on above: Order Comment: [facility] has implemented the eGFR calculation approach that does not have a coefficient for race that conforms to the NKF-ASN Task Force Recommendations. Result Comment: Marisol mated GFR was calculated using the 2020 CKD-EPI creatinine equation. Performed By: #### 4 6126 #### [facility] LAB [address] [place] [address] Harrison Evangelista M.D. [id number] Glucose [Mass/Vol] 82 mg/dL Normal 65-99 [facility] Comment on above: Order Comment: [facility] has implemented the eGFR calculation approach that does not have a coefficient for race that conforms to the NKF-ASN Task Force Recommendations. Performed By: #### 4 6126 #### LAB [address] [place] [address] Harrison Evangelista M.D. [id number] HCO3 (Bld) [Moles/Vol] 28 mmol/L Normal 21-32 [facility] Comment on above: Order Comment: [facility] has implemented the eGFR calculation approach that does not have a coefficient for race that conforms to the NKF-ASN Task Force Recommendations. Performed By: #### 4 6126 #### [place] [address] Harrison Evangelista M.D. [id number] Potassium [Moles/Vol] 3.6 mmol/L Normal 3.5-5.1 [facility] Comment on above: Order Comment: [facility] has implemented the eGFR calculation approach that does not have a coefficient for race that conforms to the NKF-ASN Task Force Recommendations. Performed By: #### 4 6126 #### [place] [address] Harrison Evangelista M.D. [id number] Protein [Mass/Vol] 7.0 g/dL Normal 6.0-8.0 [facility] Comment on above: Order Comment: [facility] has implemented the eGFR calculation approach that does not have a coefficient for race that conforms to the NKF-ASN Task Force Recommendations. Performed By: #### 4 6126 #### [place] [address] Harrison Evangelista M.D. [id number] Sodium [Moles/Vol] 140 mmol/L Normal 135-145 [facility] Comment on above: Order Comment: [facility] has implemented the eGFR calculation approach that does not have a coefficient for race that conforms to the NKF-ASN Task Force Recommendations. Performed By: #### 4 6126 #### SH [place] [address] Harrison Evangelista M.D. [id number] Urea nitrogen [Mass/Vol] 14 mg/dL Normal 8-25 [facility] Comment on above: Order Comment: [facility] has implemented the eGFR calculation approach that does not have a coefficient for race that conforms to the NKF-ASN Task Force Recommendations. Performed By: #### 4 6126 #### [facility] LAB [address] [place] [address] Harrison Evangelista M.D. [id number] Urea nitrogen/Creatinine [Mass ratio] 13.3 mg/mg Normal 10.0-20.0 [facility] Comment on above: Order Comment: [facility] has implemented the eGFR calculation approach that does not have a coefficient for race that conforms to the NKF-ASN Task Force Recommendations. Performed By: #### 4 6126 #### SH LAB [address] [place] [address] Harrison Evangelista M.D. [id number] D-DIMER, QUANTITATIVEon 01-15 D-DIMER QUANTITATIVE < Normal 0.27-0.49 [facility] Comment on above: Order Comment: A D-d [...] By: #### 4 5434 #### SH LAB [address] [place] [address] Harrison Evangelista M.D. [id number] ED Prov Noteon 02-11-2024 ED Prov Note ED PROVIDER NOTE [facility] EMERGENCY DEPARTMENT NAME: Mikayla Sotelo AGE: 33 y.o. : 1990 VISIT DATE: 02/11/2024 CSN: [id number] PCP: Miguel A Whitehead, SANDRA Chief Complaint [...] 11.00 K/mcL (more content not included)... Normal [facility] LIPASEon 02-11-2024 Lipase [Catalytic activity/Vol] 30 U/L Normal 15-65 [facility] Comment on above: Performed By: #### 4 6086 #### [address] [address] Harrison Evangelista M.D. [id number] PT/INRon 02-11-2024 INR Coag (PPP) [Relative time] 1.0 {INR} Normal 0.8-1.1 [facility] Comment on above: Order Comment: Ashley carmichael the induction phase of oral anticoagulation, the INR may not reflect the anticoagulation status of the patient. Therapeutic ranges for INR's are: Most clinical situations: INR 2.0-3.0 Mechanical Prosthetic Valve: INR 2.5-3.5 Critical: INR >5.0 Performed By: #### 4 6391 #### SH [address] [address] Harrison Evangelista M.D. [id number] PT Coag (PPP) [Time] 13.2 s Normal 11.8-14.3 [facility] Comment on above: Order Comment: Ashley carmichael the induction phase of oral anticoagulation, the INR may not reflect the anticoagulation status of the patient. Therapeutic ranges for INR's are: Most clinical situations: INR 2.0-3.0 Mechanical Prosthetic Valve: INR 2.5-3.5 Critical: INR >5.0 Performed By: #### 4 6391 #### SH [address] [address] Harrison Evangelista M.D. [id number] TROPONINon 02-11-2024 BASELINE TROPONIN T NG/L < Normal <=22 [facility] Comment on above: Performed By: #### 4 6608 #### [facility] LAB [address] [place], [place] [address] Harrison Evangelista M.D. [id number] TROPONIN T INTERPRETATION Normal Normal [facility] Comment on above: Performed By: #### 4 6608 #### [facility] LAB [address] [place], [place] [address] Harrison Evangelista M.D. [id number] XR CHEST PA/APon 02-11-2024 XR CHEST PA/AP [...] Feb 11, 2024 1:23:58 PM EST Normal [facility] Comment on above: Order Comment: Injur [...] using Betadine. Rubber band tourniquet was applied. [place] elevator was used to free the nail [...] Response to Treatment:: Procedure was tolerated well [facility] XR FOOT RIGHT 3+ VIEWS (ISAIAS DARBelgica)on 02-01-2024 XR FOOT RIGHT 3+ VIEWS (STANDARD) 3 views of the right foot reviewed today AP MO and lateral. No acute fracture or dislocation of note. No evidence of cortical erosion or subcutaneous emphysema.. Dictated by: ELLIE MONTERROSO on Dain[facility] Feb 02, 2024 8:17:18 AM EST Transcribed by: ELLIE MONTERROSO on [facility] Feb 02, 2024 8:17:18 AM EST Finalized by: ELLIE MONTERROSO on [facility] Feb 02, 2024 8:17:18 AM EST Normal [facility] Comment on above: Order Comment: Injur y/Trauma or Illness?:Illness/Other How long have you had these symptoms (acute/chronic)?:Unknown Reason for exam?:Right great toe pain History of cancer?:Unknown Surgeries, chemotherapy, or radiation?:Unknown Type of Exam?:Initial Additional signs and symptoms?:Right great toe pain ED Prov Noteon 01-30-2024 ED Prov Note ED PROVIDER NOTE [facility] EMERGENCY DEPARTMENT NAME: Mikayla Sotelo AGE: 33 y.o. : 1990 VISIT DATE: 01/30/2024 CSN: [id number] PCP: Miguel A Whitehead, SANDRA Chief Complaint [...] Holley DPM. Specialty: Podiatry [address] [place] [id number] Contact information for after-discharge care Follow-up information has not been specified. New Prescriptions sulfamethoxazole-trim ethoprim (BACTRIM DS,SEPTRA DS) 800-160 mg per tablet Take 1 (one) tablet by mouth 2 (two) times a day for 7 days . Shelby Duque MD 01/30/24 0507 AUTHENTICATED BY SHELBY DUQUE, ON 01/30/2024 05:07:55 [facility] XR FOOT RIGHT 3+ VIEWS (ISAIAS CASTLE)on [...] TueJan 30, 2024 4:57:15 AM EST Normal [facility] Comment on above: Order Comment: Injur y/Trauma or Illness?:Injury/Trauma How long have you had these symptoms (acute/chronic)?:Acute Reason for exam?:swollen 1st digit and foot, dog bite History of cancer?:u Surgeries, chemotherapy, or radiation?:u Type of Exam?:Initial Mechanism of injury?:dog bite ED Prov Noteon 11-21-2023 ED Prov Note [facility] ATTENDING NOTE: NAME: Mikayla Sotelo CSN: [id number] 33 y.o. PCP: Miguel A Whitehead CNP [...] to verify the correct patient, procedure, equipment, operations support manager and site/side marked as required. Type: abscess [...] tablet (10 (more content not included)... Normal [facility] XR FINGER 2ND RIGHT 2+ VIEWS [...] finger. No opaque foreign body. Normal [facility] XR Finger second - right Vie wson [...] swelling, second finger. No opaque foreign body. [facility] Radiology Study observation (narrative) [employer] XR Finger second - right Vie wsOrdered By: Sean Navarro on 07-09-2023 [facility] Work Phone: Laceration Repair at the Bed sideOrdered By: Tory Dominique on 07-06-2023 Radiology Study observation (narrative) [employer] [facility] Work Phone: Laceration Repair at the Bed sideon 07-05-2023 MINOR Petersen 07/05/2023 11:49 PM Laceration Repair at the Bedside Performed by: MINOR Petersen Authorized by: MINOR Petersen [place] Protocol time out called Additional Notes Area prepped and draped in sterile fashion. Anesthetized with 5 mL 1% lidocaine by local infiltration. Six size 5.0 Ethilon sutures placed to the distal aspect of the laceration. The remaining laceration does not require any additional closure. Patient tolerated well. [facility] Laceration Repair at the Bed sideOrdered By: Tory Dominique on 07-05-2023 [facility] Work Phone: Basic metabolic 2000 panelon 02-19-2022 Anion gap [Moles/Vol] 11 mmol/L 10 - 2 0 mmol/L [facility] Calcium [Mass/Vol] 9.3 mg/dL 8.4 - 10. 2 mg/dL [facility] Chloride [Moles/Vol] 107 mmol/L 98 - 10 8 mmol/L [facility] Creatinine [Mass/Vol] 0.87 mg/dL 0.50 - 1.30 mg/dL [facility] GFR/1.73 sq M.predicted CKD-EPI (S/P/Bld) [Vol rate/Area] 118 - PINF [facility] Comment on above: Estimated GFR was ca lculated using the 2020 CKD-EPI creatinine equation. Glucose [Mass/Vol] 85 mg/dL 65 - 99 mg/dL [facility] HCO3 [Moles/Vol] 29 mmol/L 21 - 32 mmol/L [facility] Interpretation and review of laboratory results Normal [facility] Potassium [Moles/Vol] 3.9 mmol/L 3.5 - 5.1 mmol/L [facility] Sodium [Moles/Vol] 143 mmol/L 135 - 145 mmol/L [facility] Urea nitrogen [Mass/Vol] 11 mg/dL 8 - 25 mg/dL [facility] Urea nitrogen/Creatinine [Mass ratio] 12.6 mg/mg 10.0 - 20.0 [facility] has implemented the eGFR calculation approach that does not have a coefficient for race that conforms to the NKF-ASN Task Force Recommendations. [facility] CBC Auto Differentialon Basophils (Bld) [#/Vol] 0.03 10*3/uL [facility] Basophils/100 WBC (Bld) 0.6 % [facility] Eosinophils (Bld) [#/Vol] 0.11 10*3/uL [facility] Eosinophils/100 WBC (Bld) 2.1 % [facility] Erythrocyte distribution width (RBC) [Entitic vol] 12.9 % 11.6 - 14.8 % [facility] Hematocrit (Bld) [Volume fraction] 46.8 % 41.0 - 53.0 % [facility] Hemoglobin (Bld) [Mass/Vol] 15.7 g/dL 13.5 - 17.5 g/dL [facility] Immature granulocytes (Bld) [#/Vol] 0.02 10*3/uL [facility] Immature granulocytes/100 WBC (Bld) 0.40 % [facility] Comment on above: The IG parameter is the percentage of metamyelocytes, myelocytes and promyelocytes. An immature granulocyte count (IG) of 1% or more suggests the possibility of infection, an IG count of 3% is very likely related to an infection. Interpretation and review of laboratory results Abnormal [facility] Lymphocytes (Bld) [#/Vol] 2.22 10*3/uL [facility] Lymphocytes/100 WBC (Bld) 41.8 % [facility] MCH (RBC) [Entitic mass] 30.5 pg 26.0 - 34.0 pg [facility] MCHC (RBC) [Mass/Vol] 33.5 g/dL 31.0 - 37.0 g/dL [facility] MCV (RBC) [Entitic vol] 91.1 fL 80.0 - 100.0 fL [facility] Monocytes (Bld) [#/Vol] 0.55 10*3/uL [facility] Monocytes/100 WBC (Bld) 10.4 % [facility] Neutrophils (Bld) [#/Vol] 2.38 10*3/uL [facility] Neutrophils/100 WBC (Bld) 44.7 % [facility] Nucleated RBC (Bld) [#/Vol] 0.00 10*3/uL [facility] Nucleated RBC/100 WBC (Bld) [Ratio] 0.0 % [facility] Platelet mean volume (Bld) [Entitic vol] 8.6 fL Low 9.4 - 12.4 fL [facility] Platelets (Bld) [#/Vol] 156 10*3/uL [facility] RBC (Bld) [#/Vol] 5.14 10*6/uL [facility] eah WBC (Bld) [#/Vol] 5.31 10*3/uL [facility] eah [facility] Critical Careon 02-19-2022 Aden Ramírez MD [...] patient's condition and review of old charts. [facility] UrinalysisOrdered By: Jenn Reyes on 02-19-2022 Bacteria Auto Ql (U) None Seen None Se en /hpf [facility] Bilirubin Ql (U) Negative Negative [facility] Clarity Refractometry automated (U) Clear Clear [facility] Color (U) Dark Yellow Abnormal Colorless, Yellow [facility] Epithelial cells.squamous Auto (Urine sed) [#/Area] [facility] Glucose Auto test strip (U) [Mass/Vol] Negative Negative mg/dL [facility] Hemoglobin Auto test strip Ql (U) Negative Negative [facility] Interpretation and review of laboratory results Abnormal [facility] Ketones (U) [Mass/Vol] Negative Negat shantal mg/dL [facility] Leukocyte esterase Auto test strip Ql (U) Negative [facility] Auto (Urine sed) [#/Area] Rare None Seen, Rare /lpf [facility] Nitrite Auto test strip Ql (U) Negative Negative [facility] pH (U) 6.0 [pH] 5.0 - 7.0 [facility] Protein (U) [Mass/Vol] Negative Negat shantal mg/dL [facility] RBC Auto (Urine sed) [#/Area] 1 [facility] Specific gravity (U) [Rel density] 1.024 1.005 - 1.025 [facility] Urobilinogen (U) [Mass/Vol] mg/dL NINF - 2.0 mg/dL [facility] WBC Auto (Urine sed) [#/Area] 2 [facility] Microscopic examination is performed on all urinalysis samples and only positive findings are reported. The test for blood on the chemical analytic portion of urinalysis may also be positive due to hemoglobinuria and myoglobinuria and if red blood cells are present they are quantified by microscopic examination. [facility] LACERATION REPAIRon 05-12-19 Lg Siddiqi MD 05/11/2020 [...] to verify the correct patient, procedure, equipment, operations support manager and site/side marked as required. All team [...] procedure well. Total estimated blood loss minimal. [facility] NOVEL CORONAVIRUS NASOPHARYN GEAL - [facility] SPECIMEN ONLYon 07-02-2019 SARS-COV-2 NOT DETECTED Normal NOT DETECTED [facility] Comment on above: Order Comment: Viral transport media (credit risk associate with pink fluid) - Collection must be [...] by The [facility] at [facility]. This test is used for [...] or clinically deteriorating. Performed By: #### L [id number] #### [facility] (DEFAULT) [address] [place] [address] Basic Metabolic Panelon 04- Anion gap [Moles/Vol] 12 mmol/L 9 - 17 mmol/L [place] Bun/Cre Ratio 14 [place] Calcium [Mass/Vol] 9.2 mg/dL 8.6 - 10. 4 mg/dL [place] Chloride [Moles/Vol] 101 mmol/L 98 - 10 7 mmol/L [place] CO2 [Moles/Vol] 27 mmol/L 20 - 31 mmol/L [place] Creatinine [Mass/Vol] 0.83 mg/dL 0.7 - 1.2 mg/dL [place] GFR >60 >60 mL/min [place] GFR Non- >60 >60 mL/min [place] Glucose [Mass/Vol]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 years Vaccine (1 of 1 - PPSV23) Pneumococcal 0-64 years Vaccine (1 of 1 - PPSV23) [place], [place] Start: 1995 PNEUMOCOCCAL VACCINE SERIES (1 of 2 - PCV) PNEUMOCOCCAL VACCINE SERIES (1 of 2 - PCV) [facility] Start: 1992 History and physical examination, annual for health maintenance Wellness Visit [facility] Start: 1990 Varicella vaccine (1 of 2 - 2-dose childhood series) Varicella vaccine (1 of 2 - 2-dose childhood series) [place], [place] Start: 1989 Hepatitis C screening HEPATITIS C VIRUS SCREENING [facility] Payers Date Payer Category Payer Medicaid [id number] 2023 Medicaid (Managed Care) [employer] COMMUNITY PLAN [id number] 2023 Medicaid [id number] 1989 Unknown [id number]. 356 1989 Unknown [id number] [id number]. 983 1989 Unknown [id number] [id number]. 983 1989 Unknown [id number] [id number]. 983 1989 Unknown [id number] 2.16.840.1.488012.3.579.2. 903 1989 Unknown [id number] 2.16.840.1.524644.3.579.2. 903 1989 Unknown [id number] [id number]. 903 1989 Unknown [id number] 2.16.840.1.555344.3.579.2. 903 1989 Unknown [id number] [id number]. 903 1989 Unknown [id number] 2.16.840.1.750920.3.579.2. 903 1989 Unknown [id number] 2.16.840.1.174215.3.579.2. 902 1989 Unknown [id number] 2.16.840.1.009500.3.579.2. 902 1989 Unknown [id number] [id number]. 902 Medicaid [id number] Medicaid [facility] MANAGED [facility] MEDICAID COMMUNITY PLAN xxxxxxxxx Effective for all dates xxxxxxxxx [id number] Medicaid [facility] MANAGED [facility] MEDICAID COMMUNITY PLAN [id number] Effective for all dates [id number] Social History Date Type Detail Facility Start: 10-27-2017 End: 12-14-2021 Tobacco smoking status NHIS Current every day smoker [facility] Start: 1990 Sex Assigned At Not on file O [facility] History of tobacco use [facility] [place] [place] Start: 05-24-2019 End: 03-11-2024 Cigarettes smoked current (pack per day) - Reported [facility] [place] Exposure to SARS-CoV -2 (event) [facility] to assess [facility] [place] Start: 05-11-2020 End: 12-14-2021 Tobacco use and exposure Never used [facility] Start: 02-09-2022 End: 02-19-2022 Exposure to SARS-CoV-2 (event) Not sure [facility] Start: 02-19-2022 End: 03-11-2024 Alcohol intake Ex-drinker (finding) [facility] Start: 11-05-2016 End: 07-13-2023 Alcoholic beverage intake Current non-drinker of alcohol (finding) [facility] Start: 04-30-2020 End: 03-11-2024 Tobacco use panel [facility] Start: 11-04-2016 Gender identity Identifies as male gender (finding) [facility] Start: 10-25-2017 Sexual orientation Heterosexual (fin ding) [facility] Clinical Notes 02-19-2022 to 03-13-2024 Jasmine Casey PA-C - 03/13/2024 11:50 AM Ann Rodriguez MD - 03/13/2024 10:57 AM Ann Rodriguez MD - 03/13/2024 10:57 AM Lety Roa RN - 03/13/2024 10:30 AM EST Note Date & Type Note Facility 03-13-2024 Hospital course Narrative [facility] DISCHARGE SUMMARY Mikayla Sotelo Admitted: 03/11/2024 Discharge Date: 03/13/24 PCP Handoff Recommended Outpatient Testing None Results Pending At Discharge None Clinical Summary Mikayla Sotelo is a 33 y.o. male patient of Miguel A Whitehead CNP with history of hepatitis C and history of drug abuse presented to [facility] on 03/11/2024 with suicidal thoughts. Assessment and plan Suicidal Thoughts - resolved Suicidal ideation Consulted psychiatry, appreciate input ID for OR with referral to local addiction recovery resources Polysubstance abuse Referral to addiction medicine, ambulatory; info added to AVS COVID-19 infection Patient tested positive for COVID-19 Patient declined chest x-ray Patient currently on room air Does not qualify for any treatment at this time PRN tylenol/ibuprofen at OR Isolation and self care instructions placed on [...] BACTRIM,SEPTRA Physician(s) Follow Up: You Roach MD [facility] Yunier Nayak [address] [place] [id number] Schedule an appointment as soon as possible for a visit ADDICTION MEDICINE Condition at Discharge: Stable Disposition: Home Time spent on discharge: < 30 minutes Completed by: Jasmine Casey PA-C on 03/13/24, 12:09 PM documented in this encounter [facility] 03-13-2024 Note HMS DISCHARGE Mikayla Murphy Admitted: 03/11/2024 Discharge Date: 03/13/24 PCP Handoff Recommended Outpatient Testing None Results Pending At Discharge None Clinical Summary Mikayla Sotelo is a 33 y.o. male patient of Miguel A Whitehead CNP with history of hepatitis C and history of drug abuse presented to [facility] on 03/11/2024 with suicidal thoughts. Assessment and plan Suicidal Thoughts - resolved Suicidal ideation Consulted psychiatry, appreciate input OK for OR with referral to local addiction recovery resources [...] BACTRIM,SEPTRA Physician(s) Follow Up: You Roach MD [facility] Nayak [address] [place], [place] [id number] Schedule an appointment as soon as possible for a visit ADDICTION MEDICINE Condition at Discharge: Stable Disposition: Home Time spent on discharge: < 30 minutes Completed by: Jasmine Casey PA-C on 03/13/24, 12:09 PM AUTHENTICATED BY JASMINE CASEY, ON 03/13/2024 12:11:42 [facility] 03-13-2024 Consult note Associated Order (s): IP CONSULT TO BEHAVIORAL HEALTH Behavioral Health Consult Patient Name: Mikayla Sotelo Admit Date: 03/11/2024 [id number] 1990 Assessment Mikayla Sotelo is a [...] History Living situation: has friends who will assisted him 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 Family counseled on [...] questions. 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 Family counseled on [...] Ann Packer MD 03/13/2024 10:57 AM ED Filtration Supervisor Behavioral Health Initial Assessment Date: 03/11/2024 Time: 4:26 PM Patient Name: Mikayla Sotelo Date of : 1990 Sex: Male Admit Date/Time: 03/11/2024 3:05 PM General Information Case Work Aide Needs: Not needed Information Provided By: the patient Patient Support System: limited Current Living Arrangements: states he was living with his girlfriend Pat Type of Residence: Private residence Name and Contact of Collateral Provider: [facility] [phone]; unable to reach LEGAL STATUS PD involuntary [...] telehealth while the patient was located at [facility]. The patient was found sitting [...] but wouldn't stop him tomorrow. To the LAB TECHNICIAN the patient reported that he was swinging [...] felony drug charges and [facility]. The patient states he has been in and out [facility] Roman Catholic beliefs: I believe Reynaldo Angelo is our savior. Access to firearms: denied Substance Use History Alcohol: denied Illicit Substance: the patient states he has a long hx of drug use dating back to the age of 9. He reports opiate use until the age of 25, and reports methamphetamine use and cannabis abuse. Treatment: reports treatment through [facility] and reports treatment while in senior living. Mental Status Evaluation General Appearance: Equal to [...] Conflict Resolution (Coping Skills): (maladaptive) Cultural and Roman Catholic Beliefs: Yes Access to Weapons: No Risk [...] by: SURINDER Peralta documented in this encounter [facility] 03-13-2024 Emergency department Note Psychiatrist at bedside [facility] 03-13-2024 Emergency department Note Psychiatrist at [...] safety. No HI/SI attempts, nonviolent at present. area intelligence technician to room for CXR. Pt refusing [...] safety. No HI/SI attempts, nonviolent at present. health actuary and [facility] unit made aware of results. Bed change [...] from the original note were not included. [facility] EMERGENCY DEPARTMENT NAYLA NOTE: NAME: Mikayla Sotelo CSN: [id number] 33 y.o. PCP: Miguel A Whitehead CNP History: Chief Complaint: Psychiatric Evaluation HPI: The history was obtained from the patient. Mikayla is a 33 y.o. male who presents with a chief complaint of Psychiatric Evaluation. Patient presents to the emergency department via pink slip from [facility] Department after he was found [...] - Normal CHEM 7 - Normal Narrative: [facility] has implemented the eGFR [...] Procedure Abnormality Status --------- ------ CBC Auto Differential[[id number]] Abnormal Final result Please view results for [...] the emergency department via pink slip from [facility] Department after he was found [...] Mar 11, [id number] Spoke with Santos barrett criminal justice social worker. She advises that Dr. Schwartz his excepted the patient. Admitting diagnosis is major depression. Admission orders have been placed at this time. [AL] 184 Patient requesting Tylenol for headache. I have placed orders for the Tylenol for his pain relief. [AL] 2035 COVID-19/Influenza A,B Molecular(!) COVID-positive [AL] 2118 Spoke with [facility] about the patient being COVID-positive. Advised him that he was excepted for major depression by Dr. Schwartz. [facility] advises he will place admission orders. He [...] Pandya CNP, CNP ED Advanced Practice Provider [facility] EMERGENCY [facility]PART[facility] (Please note that portions of this note have been completed with a voice recognition software. Efforts were made to correct any errors, but occasionally words are mis-transcribed.) Luda Pandya CNP 03/11/24 4710 PATIENT PRESENTS TO THE ED FROM HOME WITH [place] [employer] AFTER BEING FOUND IN HIS GARAGE AFTER A POSSIBLE HANGING. PATIENT DENIES ANY SUICIDAL THOUGHTS. documented in this encounter [facility] 03-13-2024 Emergency department Note Pt frustrated. Asking for an update. Updated on plan of care. Educated on pink slip [facility] 03-13-2024 Emergency department Note Pt at nurses station talking on phone. [facility] 03-13-2024 Emergency department Note Breakfast given [facility] 03-13-2024 Emergency department Note Pt taken to shower with security and psa. Now watching tv. Breakfast ordered [facility] 03-13-2024 Emergency department Note Resting in room watching tv. Calm and cooperative [facility] 03-12-2024 Emergency department Note Rounding Assessment: Activity - Resting in bed. CardioRespir - Spontaneous, equal chest rise. Respirs unlabored. Skin - Warm and Dry. Needs/Concerns - Updated on POC. Denies any further needs at this time. Safety - No AMA gown intact. Bed in fixed, low position. Continuous monitoring in place. [facility] 03-12-2024 Emergency department Note Rounding Assessment: Activity - Resting in bed. CardioRespir - Spontaneous, equal chest rise. Respirs unlabored. Skin - Warm and Dry. Needs/Concerns - Updated on POC. Denies any further needs at this time. Safety - No AMA gown intact. Bed in fixed, low position. Continuous monitoring in place. [facility] 03-12-2024 Emergency department Note Rounding Assessment: Activity - Resting in bed. CardioRespir - Spontaneous, equal chest rise. Respirs unlabored. Skin - Warm and Dry. Needs/Concerns - Updated on POC. Denies any further needs at this time. Safety - No AMA gown intact. Bed in fixed, low position. Continuous monitoring in place. [facility] 03-12-2024 Emergency department Note Rounding Assessment: Activity - Resting in bed. CardioRespir - Spontaneous, equal chest rise. Respirs unlabored. Skin - Warm and Dry. Needs/Concerns - Updated on POC. Denies any further needs at this time. Safety - No AMA gown intact. Bed in fixed, low position. Continuous monitoring in place. [facility] 03-12-2024 Note HMS PROGRESS NOTE Assessment and Plan Mikayla Sotelo is a 33 y.o. male patient of Miguel A Whitehead CNP with history of hepatitis C and history of drug abuse presented to [facility] on 03/11/2024 with suicidal thoughts. Assessment and [...] AUTHENTICATED BY JASMINE CASEY ON 03/12/2024 12:06:33 [facility] 03-12-2024 History of Presen t illness Narrative [facility] PROGRESS NOTE Assessment and Plan Mikayla Sotelo is a 33 y.o. male patient of Miguel A Whitehead CNP with history of hepatitis C and history of drug abuse presented to [facility] on 03/11/2024 with suicidal thoughts. Assessment and [...] Medications, and Transcriptions documented in this encounter [facility] 03-12-2024 Emergency department Note Breakfast tray delivered to patient. [facility] 03-12-2024 Emergency department Note This PSA ordered patient breakfast. [facility] 03-12-2024 Emergency department Note Pt ambulatory to RR with steady gait. [facility] 03-12-2024 Emergency department Note Rounding: ABCs intact, no c/o. ACTIVITY: Pt resting quietly on cart; patent airway. Spontaneous breathing w/ regular respirations. NEEDS/CONCERNS- none voiced, SAFETY: cart in low position, call light within reach. Pt remains in blue gown with continuous video/sitter monitoring in place for pt safety. No HI/SI attempts, nonviolent at present. [facility] 03-11-2024 Emergency department Note area intelligence technician to room for CXR. Pt refusing CXR. [facility] 03-11-2024 History and physical note [facility] HISTORY AND PHYSICAL -- [facility] Patient Name: Mikayla Sotelo : 1990 MR #: [id number] Admit Date: 03/11/2024 Physicians: Miguel A Whitehead CNP (Family); No ref. provider found (Referring) Mikayla Sotelo is a 33 y.o. male patient of Miguel A Whitehead CNP with history of hepatitis C and history of drug abuse presented to [facility] on 03/11/2024 with suicidal thoughts. Assessment and [...] and history of drug abuse presented to [facility] on 03/11/2024 with suicidal thoughts. Patient presents to the emergency department via pink slip from [employer] [facility] after he was found in [...] normal coloration Psych: normal mood and affect [facility] 03-11-2024 Note HMS HISTORY AND PHYS ICAL -- [facility] Patient Name: Mikayla Sotelo : 1990 MR #: [id number] Admit Date: 03/11/2024 Physicians: Miguel A Whitehead CNP (Family); No ref. provider found (Referring) Mikayla Sotelo is a 33 y.o. male patient of Miguel A Whitehead CNP with history of hepatitis C and history of drug abuse presented to [facility] on 03/11/2024 with suicidal thoughts. Assessment and [...] and history of drug abuse presented to [facility] on 03/11/2024 with suicidal thoughts. Patient presents to the emergency department via pink slip from [place] [employer] after he was found in [...] AUTHENTICATED BY CHANEL ROGERS ON 03/11/2024 22:58:01 [facility] 03-11-2024 History and physical note [facility] HISTORY AND PHYSICAL -- [facility] Patient Name: Mikayla Sotelo : 1990 MR #: [id number] Admit Date: 03/11/2024 Physicians: Miguel A Whitehead CNP (Family); No ref. provider found (Referring) Mikayla Sotelo is a 33 y.o. male patient of Miguel A Whitehead CNP with history of hepatitis C and history of drug abuse presented to [facility] on 03/11/2024 with suicidal thoughts. Assessment and [...] and history of drug abuse presented to [facility] on 03/11/2024 with suicidal thoughts. Patient presents to the emergency department via pink slip from [facility] Department after he was found [...] mood and affect documented in this encounter [facility] 03-11-2024 Emergency department Note Rounding: ABCs intact, no c/o. ACTIVITY: Pt resting quietly on cart; patent airway. Spontaneous breathing w/ regular respirations. NEEDS/CONCERNS- none voiced, SAFETY: cart in low position, call light within reach. Pt remains in blue gown with continuous video/sitter monitoring in place for pt safety. No HI/SI attempts, nonviolent at present. [facility] 03-11-2024 Emergency department Note Rounding: ABCs intact, no c/o. ACTIVITY: Pt resting quietly on cart; patent airway. Spontaneous breathing w/ regular respirations. NEEDS/CONCERNS- none voiced, SAFETY: cart in low position, call light within reach. Pt remains in blue gown with continuous video/sitter monitoring in place for pt safety. No HI/SI attempts, nonviolent at present. [facility] 03-11-2024 Emergency department Note health actuary and C unit made aware of results. Bed change will be required. [facility] 03-11-2024 Emergency department Note Report given to C unit, awaiting strep and COVID results until patient can go upstairs. [facility] 03-11-2024 Emergency department Note Rounding: ABCs intact, no c/o. ACTIVITY: Pt resting quietly on cart; patent airway. Spontaneous breathing w/ regular respirations. NEEDS/CONCERNS- none voiced, SAFETY: cart in low position, call light within reach. Pt remains in blue gown with continuous video/sitter monitoring in place for pt safety. No HI/SI attempts, nonviolent at present. [facility] 03-11-2024 Physician Emergency department Note ED Attestation: I have reviewed the Advanced Practice Provider's (NAYLA's) documentation. In addition, I have personally introduced myself to the patient (face to face), and have taken his history and performed an examination. I agree with the physical findings, management, clinical impression and disposition. [facility] Work Phone: 03-11-2024 Miscellaneous Notes [...] Prescreener Caller Information: Fernanda CADENA Referral Source: ([facility] ED) Diagnosis: Depression, PTSD, stimuliant use disorder Presenting Problem/Chief Complaint: Suicide attempt Prescreen: [facility] contacted for pre cert [phone] ; Authorization number [id number] 5 days 03/11 - 03/15; Review on the with Brittanie [phone] x [phone] Medical Status: Stable Functional Status: Independent Medication [...] by SURINDER Go documented in this encounter [facility] 03-11-2024 Emergency department Note PATIENT UPDATED ON PLAN OF CARE, PATIENT STATED IM GONNA KILL THAT BITCH INFORMED PATIENT THAT WAS INAPPROPRIATE. [facility] 03-11-2024 Plan of care note Behavioral Health Pre Admission Screening Tool Date: 03/11/2024 Time: 6:27 PM Patient Name: Mikayla Sotelo Date of : 1990 Sex: Male Prescreener Caller Information: Fernanda KUMARJaniceJenny Referral Source: ([facility] ED) Diagnosis: Depression, PTSD, stimuliant use disorder Presenting Problem/Chief Complaint: Suicide attempt Prescreen: [facility] contacted for pre cert [phone] ; Authorization number [id number] 5 days 03/11 - 03/15; Review on the with Brittanie [phone] Medical Status: Stable Functional Status: Independent Medication [...] for psychiatric hospitalization. Accepted by SURINDER Go [facility] 03-11-2024 Physician Emergency department Note Images from the original note were not included. [facility] EMERGENCY DEPARTMENT NAYLA NOTE: NAME: Mikayla Sotelo CSN: [id number] 33 y.o. PCP: Miguel A Whitehead CNP History: Chief Complaint: Psychiatric Evaluation HPI: The history was obtained from the patient. Mikayla is a 33 y.o. male who presents with a chief complaint of Psychiatric Evaluation. Patient presents to the emergency department via pink slip from [facility] Department after he was found [...] - Normal CHEM 7 - Normal Narrative: [facility] has implemented the eGFR [...] Procedure Abnormality Status --------- ------ CBC Auto Differential[[id number]] Abnormal Final result Please view results for these tests on the individual orders. CT Angiogram Head Neck Non-public Result 1. Normal noncontrast CT of the head. 2. Normal CT angiogram of the brain. 3. No acute carotid vertebral artery dissection. No significant carotid or vertebral artery stenosis. 4. No acute cervical spine fracture. Workstation ID: [id number] [facility]/ED course: Patient presents to the emergency department via pink slip from [facility] after he was found in [...] as of 03/11/240 Sun Mar 11, 2024 8732 Spoke with Santos the criminal justice social worker. She advises that Dr. Schwartz his excepted the patient. Admitting diagnosis is major depression. Admission orders have been placed at this time. [AL] 1839 Patient requesting Tylenol for headache. I have placed orders for the Tylenol for his pain relief. [AL] 2035 COVID-19/Influenza A,B Molecular(!) COVID-positive [AL] 2118 Spoke with [facility] about the patient being COVID-positive. Advised him that he was excepted for major depression by Dr. Schwartz. [facility] advises he will place admission orders. He also reports that the patient will likely stay in the ER due to no beds and no sitter. [AL] ED Course User Index [AL] Jonathan Britton, PIPE MACHINE OPERATOR I did personally review Mikayla's past medical [...] Disposition: ED Disposition None Luda Pandya CNP, PIPE MACHINE OPERATOR ED Advanced Practice Provider [facility] EMERGENCY DEPARTMENT (Please note that portions of this note have been completed with a voice recognition software. Efforts were made to correct any errors, but occasionally words are mis-transcribed.) Luda Pandya CNP 03/11/24 1716 [facility] 03-11-2024 Consult note Formatting of th is note is different from the original. ED Filtration Supervisor Behavioral Health Initial Assessment Date: 03/11/2024 Time: 4:26 PM Patient Name: Mikayla Sotelo Date of : 1990 Sex: Male Admit Date/Time: 03/11/2024 3:05 PM General Information Case Work Aide Needs: Not needed Information Provided By: the patient Patient Support System: limited Current Living Arrangements: states he was living with his girlfriend Pat Type of Residence: Private residence Name and Contact of Collateral Provider: [facility] [phone]; unable to reach [employer]GAL [employer] PD involuntary [...] telehealth while the patient was located at [place] [facility]. The patient was found sitting [...] and had just been swinging from the [employer]. A wooden bread box was laying in the middle of the garage floor. The box was on it's side and there were wet shoe prints on the box, indicating he used it to kick out from underneath his feet. Pt stated we stopped him from killing himself today but wouldn't stop him tomorrow. To the LAB TECHNICIAN the patient reported that he was swinging [...] felony drug charges and [facility]. The patient states [facility] [place] [facility] Roman Catholic beliefs: I believe Reynaldo Angelo is our savior. Access to firearms: denied Substance Use History Alcohol: denied Illicit Substance: the patient states he has a long hx of drug use dating back to the age of 9. He reports opiate use until the age of 25, and reports methamphetamine use and cannabis abuse. Treatment: reports treatment through [facility] and reports treatment while in senior living. Mental Status Evaluation General Appearance: Equal to [...] Conflict Resolution (Coping Skills): (maladaptive) Cultural and Roman Catholic Beliefs: Yes Access to Weapons: No Risk [...] psychiatric hospitalization. Electronically signed by: SURINDER Peralta [facility] 03-11-2024 Emergency department Triage note PATIENT PRESENTS TO THE ED FROM HOME WITH SANDHYA GREEN AFTER BEING FOUND IN HIS GARAGE AFTER A POSSIBLE HANGING. PATIENT DENIES ANY SUICIDAL THOUGHTS. [facility] 02-01-2024 Note Addended by: ELLIE LUNA on: 02/01/2024 02:12 PM Modules accepted: Orders [facility] 02-01-2024 Note Addended by: ELLIE LUNA on: 02/01/2024 02:12 PM Modules accepted: Orders [facility] 02-01-2024 Note Addended by: ELLIE LUNA on: 02/01/2024 02:12 PM Modules accepted: Orders [facility] 02-01-2024 Miscellaneous Notes Addended by: ELLIE MONTERROSO on: 02/01/2024 02:12 PM Modules accepted: Orders documented in this encounter [facility] 02-01-2024 Note NEW Patient Visit ELLIE [...] using Betadine. Rubber band tourniquet was applied. [place] elevator was used to free the nail [...] dressing applied using Adaptic 4 x 4 Kiol and Coban. Response to Treatment:: Procedure was tolerated well This note was partially created using voice recogniti (more content not included)... [facility] 02-01-2024 History of Presen t illness Narrative [...] using Betadine. Rubber band tourniquet was applied. [place]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
[2025-01-12 22:34] VITALS: BMI 18.6
[2025-01-12] MEDS: hydrOXYzine PAM 25 MG Capsule 50 MG PO (22:52)
--- NOTE | 2025-01-12 23:53 | PCM.HP.STD ---
HPI - General General Date of Admission: 01/12/25 Date of Service: 01/12/25 Chief Complaint: Substance abuse HPI Narrative MIKAYLA SOTELO, is a 34 M who presents from home because of ongoing opioid abuse and plans for detox This patient has no significant medical history except for IV fentanyl use over the past 4 months, injected into his left antecubital fossa with no reported complications at the injection site, last use was earlier today. He also smokes methamphetamine. Patient decided to stop abusing opioids and he stopped using fentanyl but he developed debilitating withdrawal symptoms at home including lower extremity pains and aching. In the ED he was tachycardic but otherwise stable apart from mild restlessness. Patient does not drink alcohol. He has primary doctor he has not seen in a while. He denies any mental health or psychiatric diagnoses or related symptoms, he does not see anyone or take medications related to mental health as well. [facility] Medical History (Updated 01/13/25 @ 00:[address] Shaynne Charles MD) Substance abuse Home Medications ?Medication ?Instructions ?Recorded ?Last Taken ?Type NK 01/12/25 Unknown History Allergy/AdvReac Type Severity Reaction Status Date / Time No Known Allergies Allergy Verified 01/12/25 19:38 Social History (Updated 01/12/25 @ 19:53 by Danika Whipple) housing: house Smoking Status: Never smoker ROS Constitutional Constitutional: Denies fever(s) or poor appetite ENT HEENT: Reports none Cardiovascular Cardiovascular: Denies chest pain or dyspnea Respiratory/Chest Respiratory/Chest: Denies cough or wheezing Gastrointestinal Gastrointestinal: Denies abdominal pain or change in bowel habits Genitourinary Genitourinary: Denies change in urinary stream or dysuria Musculoskeletal Musculoskeletal: Denies arthralgias or myalgias Integumentary Integumentary: Reports none Neurologic Neurologic: Denies abnormal speech, dizziness, focal weakness, loss of vision or numbness Hematologic/Lymphatic Hematologic/Lymphatic: Reports none Vital Signs Vital Signs Vital Signs: 01/12/25 19:36 01/12/25 20:36 01/12/25 21:00 Temperature 98 F Temperature Source Oral Pulse Rate 88 98 89 Respiratory Rate 18 Blood Pressure 125/75 H 123/72 H 121/71 H Blood Pressure Mean 91 89 87 Pulse Ox 99 100 100 Oxygen Delivery Method Room Air Room Air Room Air 01/12/25 21:16 01/12/25 22:00 Temperature 98 F Temperature Source Pulse Rate 88 102 H Respiratory Rate 18 Blood Pressure 125/75 H 113/81 H Blood Pressure Mean 91 91 Pulse Ox 99 100 Oxygen Delivery Method Weight Weight: 63.9 kg Body Mass Index (BMI) 18.6 Physical Exam Const alert and oriented x3 HEENT normocephalic and head/scalp atraumatic Eyes EOMs intact bilaterally; Negative for no scleral icterus Neck supple Resp normal respiratory effort and clear to auscultation bilaterally Cardio regular rate and regular rhythm; Negative for no murmurs GI normal to inspection, nondistended, normoactive bowel sounds; Negative for non-tender no CVA tenderness Extremity no joint enlargement and no pedal edema Skin Skin Narrative: Left antecubital fossa palpable vein but nontender, no erythema or signs of infection Neuro oriented x3 and moves all extremities Results Lab / Micro Data 01/12/25 19:49 01/12/25 19:49 Labs: Laboratory Results - last 24 hr 01/12/25 19:49: WBC 8.6, RBC 5.56, Hgb 16.6 H, Hct 47.8, MCV 86.0, MCH 29.9, MCHC 34.7, RDW Std Deviation 38.5, RDW Coeff of Sonja 12.3, Plt Count 191, MPV 8.3, Immature Gran % (Auto) 0.800, Neut % (Auto) 63.7, Lymph % (Auto) 24.3, Emmet % (Auto) 9.7, Eos % (Auto) 1.2, Baso % (Auto) 0.3, Absolute Neuts (auto) 5.5, Absolute Lymphs (auto) 2.10, Nucleated RBC % 0, Sodium 138, Potassium 3.8, Chloride 101, Carbon Dioxide 25.4, Anion Gap 12, BUN 17, Creatinine 0.75, Estim Creat Clear Calc 127.89, Est GFR (MDRD) Non-Af 121, BUN/Creatinine Ratio 22.9 H, Glucose 101 H, Calcium 9.4, Total Bilirubin 0.49, AST 30, ALT 59 H, Alkaline Phosphatase 119, Total Protein 7.3, Albumin 4.2, Globulin 3.1, Albumin/Globulin Ratio 1.3, Ethyl Alcohol < 10.1 01/12/25 20:26: Urine Opiates Screen NEGATIVE, U Buprenorphine Qual PRESUMPTIVE POSITIVE, Ur Oxycodone Screen NEGATIVE, Urine Methadone Screen NEGATIVE, Urine Fentanyl Screen PRESUMPTIVE POSITIVE, Ur Barbiturates Screen NEGATIVE, Ur Phencyclidine Scrn NEGATIVE, Ur Amphetamines Screen PRESUMPTIVE POSITIVE, U Benzodiazepines Scrn NEGATIVE, Urine Cocaine Screen NEGATIVE, U Cannabinoids Screen PRESUMPTIVE POSITIVE Assessment & Plan Assessment/Plan (1) Fentanyl use disorder, mild, abuse: (2) Amphetamine use: (3) IV drug user: (4) Elevated ALT measurement: PLAN: Plan 34-year-old male with no known medical history comes in for detox, he injects fentanyl IV and uses amphetamine and cannabinoids. Detox: As needed symptomatic management for withdrawal including gabapentin, hydroxyzine, loperamide, methocarbamol, ondansetron, trazodone, and dicyclomine Monitoring for withdrawal using COWS score Start buprenorphine per protocol IV drug use: Check HIV, hepatitis B and C ALT slightly above the upper limit of normal range. Will monitor Charges/Coding Visit Charges Inpatient E&M: 85370 Init Hosp L2
[2025-01-13 00:43] LABS: HIV Nonreactive (Nonreactive); Hepatitis B Surface Antigen Nonreactive (Nonreactive); Hepatitis C Antibody REAC (Nonreactive)
--- NOTE | 2025-01-13 01:23 | NURSING ---
Patient is sleeping, no distress noted
[2025-01-13 02:55] VITALS: BP 105/55; PULSE 91; RESP 18; TEMP 36.6; O2SAT 97
[2025-01-13 05:58] VITALS: BP 108/78; PULSE 89; RESP 18; TEMP 37; O2SAT 96
[2025-01-13 08:46] VITALS: BP 131/78; PULSE 79; RESP 18; TEMP 36.8; O2SAT 99
[2025-01-13] MEDS: hydrOXYzine PAM 25 MG Capsule 50 MG PO ×2 (09:57→17:03)
--- NOTE | 2025-01-13 10:03 | PN.HOSP_ITS ---
Reason for Visit Chief Complaint: Substance abuse Subjective Subjective Pt sto start subutex taper, reports not feeling great but no new complaints Objective Data Objective Data Vital Signs: Vital Signs Temp Pulse Resp BP Pulse Ox O2 Del Method 98.3 F 79 18 131/78 H 99 Room Air 01/13/25 08:46 01/13/25 08:46 01/13/25 08:46 01/13/25 08:46 01/13/25 08:46 01/13/25 08:46 Oxygen Delivery Method Room Air Weight: 63.9 kg Body Mass Index (BMI) 18.6 Lab / Micro Data 01/12/25 19:49 01/12/25 19:49 Labs: Laboratory Results - last 24 hr 01/12/25 19:49: WBC 8.6, RBC 5.56, Hgb 16.6 H, Hct 47.8, MCV 86.0, MCH 29.9, MCHC 34.7, RDW Std Deviation 38.5, RDW Coeff of Sonja 12.3, Plt Count 191, MPV 8.3, Immature Gran % (Auto) 0.800, Neut % (Auto) 63.7, Lymph % (Auto) 24.3, Spink % (Auto) 9.7, Eos % (Auto) 1.2, Baso % (Auto) 0.3, Absolute Neuts (auto) 5.5, Absolute Lymphs (auto) 2.10, Nucleated RBC % 0, Sodium 138, Potassium 3.8, Chloride 101, Carbon Dioxide 25.4, Anion Gap 12, BUN 17, Creatinine 0.75, Estim Creat Clear Calc 127.89, Est GFR (MDRD) Non-Af 121, BUN/Creatinine Ratio 22.9 H, Glucose 101 H, Calcium 9.4, Total Bilirubin 0.49, AST 30, ALT 59 H, Alkaline Phosphatase 119, Total Protein 7.3, Albumin 4.2, Globulin 3.1, Albumin/Globulin Ratio 1.3, Ethyl Alcohol < 10.1, Hepatitis A IgM Ab Cancelled, Hep Bs Antigen Nonreactive, Hepatitis C Antibody REAC, HIV 1&2 Antibody Nonreactive 01/12/25 20:26: Urine Opiates Screen NEGATIVE, U Buprenorphine Qual PRESUMPTIVE POSITIVE, Ur Oxycodone Screen NEGATIVE, Urine Methadone Screen NEGATIVE, Urine Fentanyl Screen PRESUMPTIVE POSITIVE, Ur Barbiturates Screen NEGATIVE, Ur Phencyclidine Scrn NEGATIVE, Ur Amphetamines Screen PRESUMPTIVE POSITIVE, U Benzodiazepines Scrn NEGATIVE, Urine Cocaine Screen NEGATIVE, U Cannabinoids Screen PRESUMPTIVE POSITIVE Physical Exam Narrative General: Alert, oriented, no apparent distress HEENT: Atraumatic, normocephalic Eyes: extraocular movements grossly intact Neck: Supple Respiratory: normal respiratory effort Cardiovascular: no edema appreciated GI: nondistended Extremities: Moving all extremities Neuro: No overt focal neurological deficits Psych: Cooperative Assessment & Plan Assessment/Plan (1) Fentanyl use disorder, mild, abuse: (2) Amphetamine use: (3) IV drug user: PLAN: Plan #Acute opiate withdrawal - Subutex taper initiated - As needed Tylenol, ibuprofen, bowel regimen, gabapentin, Bentyl, Vistaril, methocarbamol, clonidine - As needed trazodone nightly - As needed antiemetics -Once patient begins to clinically improve will discuss further discharge planning #Polysubstance abuse -UDS positive for buprenorphine, fentanyl, amphetamines, cannabinoids - Advise cessation #DVT ppx: low risk, ambulatory Sonia Cochran MD Charges/Coding Visit Charges Inpatient E&M: 99911 Subs Hosp L1
--- NOTE | 2025-01-13 16:37 | ADDICTION ---
Pt was met with to complete RAMP assessments, DUDIT, AUDIT, MSE, ASAM, & DC Plan. Pt presented as withdrawn and fatigued, and he was not willing to engage in much conversation. He was provided info on tx options and resources and he states I don't know what I'm going to do yet but I don't want to talk about it right now. Pt was encouraged to consider residential tx. RAMP coordinator was notified to f/u with pt on Tuesday.
[2025-01-13 17:04] VITALS: BP 120/74; PULSE 82; RESP 18; TEMP 37.3; O2SAT 99
[2025-01-13 21:00] VITALS: BP 122/83; PULSE 90; RESP 17; TEMP 36.6; O2SAT 100
[2025-01-14] MEDS: hydrOXYzine PAM 25 MG Capsule 50 MG PO ×3 (01:36→15:46)
[2025-01-14 03:00] VITALS: BP 124/80; PULSE 77; RESP 16; TEMP 36.7; O2SAT 100
[2025-01-14 08:56] VITALS: BP 110/59; PULSE 72; RESP 18; TEMP 36.6; O2SAT 100
--- NOTE | 2025-01-14 10:56 | CASEMGMT ---
Social Work SW completed a SDOH with the patient. Patient reported he stays with friends and does not have his own housing. SW provided resources to the patient such as [employer], apartments, Community Actions, and homeless shelters. DELLA Arcos
--- NOTE | 2025-01-14 13:23 | PN_ITS ---
Subjective Subjective Patient seen and examined. He had no complaints and had an uneventful night. Review of systems otherwise negative. He feels his withdrawal is improving. He has remained hemodynamically stable. Objective Data Objective Data Vital Signs: Vital Signs Temp Pulse Resp BP Pulse Ox O2 Del Method 97.8 F 72 18 110/59 L 100 Room Air 01/14/25 08:56 01/14/25 08:56 01/14/25 08:56 01/14/25 08:56 01/14/25 08:56 01/14/25 12:44 Oxygen Delivery Method Room Air Weight: 140 lb 14.006 oz Body Mass Index (BMI) 18.6 Intake & Output: Intake and Output for Last 24 Hours 01/12/25 01/13/25 01/14/25 23:59 23:59 23:59 Intake Total 610 / 610 Balance 610 / 610 Lab / Micro Data 01/12/25 19:49 01/12/25 19:49 Social Homelessness:: Sheltered Physical Exam Const alert, oriented x3 and no apparent distress General Appearance: cooperative HEENT normocephalic, head/scalp atraumatic, moist oral mucous membranes and oropharynx normal Eyes EOMs intact bilaterally Neck supple and no JVD Lymph Lymphatic: no lymphedema noted Resp normal respiratory effort, normal air movement and clear to auscultation bilaterally Cardio regular rate, regular rhythm, S1 normal heart sound, S2 normal heart sound and no murmurs GI normal to inspection, nondistended, normoactive bowel sounds, soft to palpation, non-tender and non-distended Extremity normal capillary refill General Extremity: no tenderness to palpation of joints or extremities Skin General Skin Exam: no breakdown Neuro no focal motor deficits and no sensory deficits noted Motor Exam: strength 5/5 throughout Psych thought process normal, cooperative and affect normal Appearance: appropriate Assessment & Plan Assessment/Plan (1) Opioid withdrawal: PLAN: Plan #Acute opioid withdrawal * On opioid withdrawal protocol with buprenorphine. On adjunctive meds for symptomatic relief * On Tussionex:. #Polysubstance abuse: Urine tox positive for buprenorphine, fentanyl, amphetamines and cannabinoids. Counseled on cessation DVT prophylaxis: Low risk. Encourage ambulation Charges/Coding Visit Charges Inpatient E&M: 74527 Subs Hosp L2
[2025-01-14 15:00] VITALS: BP 113/69; PULSE 68; RESP 18; TEMP 36.4; O2SAT 98
[2025-01-14 21:00] VITALS: BP 100/62; PULSE 80; RESP 16; TEMP 36.8; O2SAT 98
[2025-01-15 02:06] VITALS: BP 113/62; PULSE 77; RESP 18; TEMP 36.4; O2SAT 98
[2025-01-15 08:00] VITALS: BP 115/68; PULSE 84; RESP 18; TEMP 36.7; O2SAT 99
--- NOTE | 2025-01-15 12:41 | DCINST_ITS ---
Discharge Instructions DC O2, CPAP, BIPAP needs Home O2 Discharge instructions: No Dressing / Incision Discharge Activity: Return to Normal Activity Weight Bearing Status: Weight bearing as tolerated Dressing / Incision Call your doctor if you observe: Fever of 101 or Higher, Shortness of breath, Dizziness, Swelling in the ankles and Chest pain Follow Up Care Test Results: Test results from this visit will be discussed in further detail at your follow- up appointment, if applicable. Discharge Plan Admission Admit Date/Time: 01/12/25 21:09 Primary Reason for Your Visit: acute opioid withdrawal Attending Provider: Eve Danielle Primary Care Provider: Maximino Whitehead Consulting Providers: Shyanne Charles; Sonia Cochran Instructions Patient Instructions: Opioid Treatment Plan, ED Opioid Withdrawal Discharge Orders/Prescriptions Prescriptions: No Action NK Referrals / Follow Up: Maximino Whitehead, TOOL DRAWING CHECKER-C [Primary Care Provider, Medical] - Within 1 Week Disposition Disposition (needs filled in before D/C Order can be placed): Home, Self Care
--- NOTE | 2025-01-15 12:47 | DS.PCM_ITS ---
Providers Date of Admission: 01/12/25 Date of Discharge: 01/15/25 Primary Care Physician: Maximino Whitehead, [employer] [facility] Reason For Visit: OPIOID ABUSE Diagnosis Discharge Diagnosis (1) Opioid withdrawal: Status: Acute Code(s): F11.93 - Opioid use, unspecified with withdrawal Plan #Acute opioid withdrawal * On opioid withdrawal protocol with buprenorphine. On adjunctive meds for symptomatic relief * On Tussionex:. #Polysubstance abuse: Urine tox positive for buprenorphine, fentanyl, amphetamines and cannabinoids. Counseled on cessation DVT prophylaxis: Low risk. Encourage ambulation Medications at Discharge Home Medications NK 01/12/25 Hospital Course Operations None Procedures None Summary of Care Provided Minutes Spent on Discharge: 45 Hospital Course: Patient is a 34-year-old male with past medical history as outlined who was admitted through the ED for acute opioid detox. He had been using fentanyl over the last 4 months prior to admission and usually injected it in his left antecubital fossa. He also smoked methamphetamine and his last use for fentanyl was the day of admission. He decided to stop using fentanyl but started experiencing debilitating withdrawal symptoms at home so he came into the ED. In the ED urine tox was positive for buprenorphine and fentanyl as well as amphetamines and cannabinoids. Serum alcohol level was less than 10.1. He was admitted and managed for acute opioid withdrawal. He was started on opioid withdrawal protocol with buprenorphine. He tolerated a 3-day detox process and did well. He was discharged home on 01/15/2025. He is follow-up with his primary care doctor within 1 to 2 weeks. Patient seen and examined prior to discharge. I saw patient in his room with his and his at bedside. He denied any withdrawal symptoms and had an uneventful night. Review of systems otherwise negative. Labs and vitals reviewed. Home Medication reviewed and reconciled. Physical Exam Const alert, oriented x3 and no apparent distress General Appearance: cooperative and comfortable Orientation / Consciousness: awake HEENT normocephalic, head/scalp atraumatic, hearing grossly normal bilaterally, moist oral mucous membranes and oropharynx normal Mouth: oral and palatal mucosa normal Eyes EOMs intact bilaterally and conjunctivae normal; Negative for no scleral icterus Neck supple and no JVD Lymph Lymphatic: no lymphedema noted Resp normal respiratory effort, normal air movement, no use of accessory muscles and clear to auscultation bilaterally Cardio regular rate, regular rhythm, S1 normal heart sound, S2 normal heart sound and no murmurs GI normal to inspection, nondistended, normoactive bowel sounds, soft to palpation, non-tender and non-distended no CVA tenderness Extremity normal to inspection, full ROM, normal capillary refill, no joint enlargement and no pedal edema General Extremity: no tenderness to palpation of joints or extremities Skin no rashes or lesions noted General Skin Exam: no breakdown Neuro oriented x3, moves all extremities, no focal motor deficits and no sensory deficits noted Motor Exam: strength 5/5 throughout Psych thought process normal, cooperative and affect normal Appearance: appropriate Medical Records Data Homelessness:: Sheltered Weight / BMI Weight Weight: 140 lb 14.006 oz Body Mass Index (BMI) 18.6 ABG / Lab / Microbiology Data 01/12/25 19:49 01/12/25 19:49 D/C Instructions Discharge Activity: Return to Normal Activity Weight Bearing Status: Weight bearing as tolerated Call your doctor if you observe: Fever of 101 or Higher, Shortness of breath, Dizziness, Swelling in the ankles and Chest pain DC O2, CPAP, BIPAP Needs Home O2 Discharge instructions: No DC home with Oxygen: No Meaningful Use Info Meaningful Use Meaningful Use Diagnoses (Choose all that apply): None applicable Discharge Plan Admission Admit Date/Time: 01/12/25 21:09 Primary Reason for Your Visit: acute opioid withdrawal Attending Provider: Eve Danielle Primary Care Provider: Maximino Whitehead Consulting Providers: Shyanne Charles; Sonia Cochran Instructions Patient Instructions: Opioid Treatment Plan, ED Opioid Withdrawal Discharge Orders/Prescriptions Prescriptions: No Action NK Referrals / Follow Up: Maximino Whitehead, [employer] [facility] [Primary Care Provider, Medical] - Within 1 Week Disposition Disposition (needs filled in before D/C Order can be placed): Home, Self Care Charges/Coding Visit Charges Inpatient E&M: 71207 Disch Hosp >30min
== END 2025-01-15 13:35 | disposition home or self-care (01) | DRG 773 ==
LOC: ED 20:33 → PCU 22:03
PROVIDERS: Admitting Provider Internal Medicine; Emergency Provider Emergency Medicine; PCP Nurse Practitioner; Visit Provider Student in an Organized Health Care Education/Training Program
DX: F11.13 Opioid abuse with withdrawal (principal); Z59.01 Sheltered homelessness
CPT/HCPCS: 80053; 80307; 82077; 85025; 86703; 86803; 87340; 99283